=== PATIENT | male | born 1955 | race Caucasian/White ===

== ENCOUNTER → 2016-05-09 | Outpatient (CLI) | payer MEDICAID, MEDICARE | LOC: RAD 09:18 | PROVIDERS: ATTEND Internal Medicine Gastroenterology | DX: R10.31 Right lower quadrant pain (principal); R93.3 Abnormal findings on diagnostic imaging of other parts of digestive tract | CPT/HCPCS: 74280 ==

== ENCOUNTER 2017-04-14 07:05 | Inpatient (IN) | payer MEDICARE, MEDICAID ==
[2017-04-14] MEDS ORDERED: NORMAL SALINE 1000 ML 1,000 ML IV ONE (07:31)
[2017-04-14] MEDS ORDERED: CEFTRIAXONE 1 GM/D5W RTU 1 GM/50 ML RTUPB IV ONE (07:48)
[2017-04-14 08:46] LABS: ALANINE AMINOTRANSFERASE 31 U/L (21-72); ALBUMIN 3.2 g/dL (3.5-5.0); ALKALINE PHOSPHATASE 63 U/L (38-126); ANION GAP 15 (5-19); ASPARTATE AMINO TRANSFERASE 45 U/L (17-59); BILIRUBIN,DIRECT 0.4 mg/dL (0.0-0.4); BILIRUBIN,TOTAL 0.6 mg/dL (0.2-1.3); BLOOD UREA NITROGEN 31 mg/dL (7-20); CALCIUM 8.9 mg/dL (8.4-10.2); CARBON DIOXIDE 19 mmol/L (22-30); CHLORIDE 102 mmol/L (98-107); GLUCOSE 127 mg/dL (75-110); LIPASE 34.8 U/L (23-300); POTASSIUM 3.3 mmol/L (3.6-5.0); SODIUM 135.6 mmol/L (137-145); TOTAL PROTEIN 5.8 g/dL (6.3-8.2)
--- NOTE | 2017-04-14 08:46 | RADIOLOGY REPORT (SQ) ---
EXAM DESCRIPTION: CT HEAD WITHOUT COMPLETED DATE/TIME: 04/14/2017 8:37 am REASON FOR STUDY: confusion, altered COMPARISON: None. TECHNIQUE: Axial images acquired through the brain without intravenous contrast. Images reviewed wi th bone, brain and subdural windows. Images stored on PACS. All CT scanners at this facility use dose modulation, iterative reconstruction, and/or weight based d osing when appropriate to reduce radiation dose to as low as reasonably achievable (ALARA). [facility]: Dose Right [facility]: CareDose [facility]: Dose Right [facility]: Teradose 4D [facility]: Re5ult RADIATION DOSE: CT Rad equipment meets quality standard of care and radiation dose reduction techniq ues were employed. CTDIvol: 64.6 mGy. DLP: 1163 mGy-cm. mGy. LIMITATIONS: None. FINDINGS: VENTRICLES: Normal size and contour. CEREBRUM: No masses. No hemorrhage. No midline shift. No evidence for acute infarction. Normal gra y/white matter differentiation. No areas of low density in the white matter. CEREBELLUM: No masses. No hemorrhage. No alteration of density. No evidence for acute infarction. EXTRAAXIAL SPACES: No fluid collections. No masses. ORBITS AND GLOBE: No intra- or extraconal masses. Normal contour of globe without masses. CALVARIUM: No fracture. PARANASAL SINUSES: No fluid or mucosal thickening. SOFT TISSUES: No mass or hematoma. OTHER: No other significant finding. IMPRESSION: NO ACUTE INTRACRANIAL IMAGING FINDINGS. EVIDENCE OF ACUTE STROKE: NO. COMMENT: Quality ID # [id number]: Final reports with documentation of one or more dose reduction techniques (e.g., Automated exposure control, adjustment of the mA and/or kV according to patient size, use of iterative reconstruction technique) TECHNICAL DOCUMENTATION: JOB ID: [id number] [employer]- All Rights Reserved
[2017-04-14 08:50] LABS: HEMATOCRIT 34.5 % (37.9-51.0); HEMOGLOBIN 11.5 g/dL (13.5-17.0); MEAN CORPUSCULAR HEMOGLOBIN 30.2 pg (27.0-33.4); MEAN CORPUSCULAR HGB CONC 33.2 g/dL (32.0-36.0); MEAN CORPUSCULAR VOLUME 91 fl (80-97); PLATELET COUNT 284 10^3/uL (150-450); RED CELL DISTRIBUTION WIDTH 14.8 % (11.5-14.0)
[2017-04-14 08:52] LABS: ABSOLUTE LYMPHOCYTES# (MANUAL) 0.2 10^3/uL (0.5-4.7); ABSOLUTE MONOCYTES # (MANUAL) 0.5 10^3/uL (0.1-1.4); ABSOLUTE NEUTROPHILS# (MANUAL) 16.3 10^3/uL (1.7-8.2); BAND NEUTROPHILS % (MANUAL) 3 % (3-5); BASOPHILS % (MANUAL) 0 % (0-2); EOSINOPHILS % (MANUAL) 0 % (0-6); LYMPHOCYTES % (MANUAL) 1 % (13-45); MONOCYTES % (MANUAL) 3 % (3-13); SEGMENTED NEUTROPHILS % (MAN) 93 % (42-78); TOTAL CELLS COUNTED 100
[2017-04-14 08:54] LABS: ANISOCYTOSIS SLIGHT; PLATELET COMMENT ADEQUATE; POLYCHROMASIA SLIGHT; TOXIC GRANULATION SLIGHT
[2017-04-14 08:58] LABS: CREATINE KINASE MB 3.22 ng/mL (<4.55); TROPONIN I 0.02 ng/mL
--- NOTE | 2017-04-14 09:47 | ER Document Report ---
ED Fever - General Chief Complaint: Fever Stated Complaint: FEVER Time Seen by Provider: 04/14/17 07:32 Mode of Arrival: Ambulatory Information source: Patient Notes: Patient is a 61-year-old male brought in by EMS from group home who presents to the ER today for confusion this morning and fever. Patient states that he feels confused. Fever was as high as 101F at the group home, they did give him Tylenol on the ambulance. Patient denies any pain anywhere, cough, runny nose, burning with urination or any other symptoms. He complains of his chronic foot pain and back pain. TRAVEL OUTSIDE OF THE [place] IN LAST 30 DAYS: No - Related Data Allergies/Adverse Reactions: Penicillins Allergy (Verified 11/23/15 11:27) Home Medications: Current Home Medications Acetaminophen [Tylenol 325 mg Tablet] 650 mg PO Q4HP PRN 04/14/17 [History] Acetaminophen [Tylenol 325 mg Tablet] 650 mg PO Q8 04/14/17 [History] Atenolol [Tenormin] 50 mg PO DAILY 04/14/17 [History] Benztropine Mesylate 1 mg PO BID 04/14/17 [History] Bismuth Subsalicylate [Bismuth] 15 ml PO Q4HP PRN 04/14/17 [History] Bupropion HCl [Wellbutrin 75 mg Tablet] 75 mg PO DAILY 04/14/17 [History] Calcium Carbonate [Tums Chewable 500 mg Tab.chew] 1,000 mg PO Q1HP PRN 04/14/17 [History] Diazepam [Valium 5 mg Tablet] 5 mg PO Q8HP PRN 04/14/17 [History] Divalproex Sodium [Depakote] 1,000 mg PO QHS 04/14/17 [History] Divalproex Sodium [Depakote] 500 mg PO DAILY 04/14/17 [History] Doxepin HCl [Silenor] 3 mg PO QHS 04/14/17 [History] Ergocalciferol (Vitamin D2) [Drisdol 50,000 unit (1.25MG) Capsule] 50,000 unit PO MO@1000 04/14/17 [History] Lubiprostone [Amitiza] 24 mcg PO BID 04/14/17 [History] Mag Hydrox/Al Hydrox/Simeth [Maalox Plus Susp 30 Udcup] 30 ml PO Q4HP PRN [History] Magnesium Hydroxide [Milk of Magnesia 30 ml Udcup] 30 ml PO BIDP PRN 04/14/17 [ History] Melatonin [Melatin] 3 mg PO QHS 04/14/17 [History] Metformin HCl [Glucophage] 1,000 mg PO BIDBS 04/14/17 [History] Methylcellulose [Fiber] 1,000 mg PO BID 04/14/17 [History] Olanzapine [Olanzapine Odt] 15 mg SL BID 04/14/17 [History] Propylene Glycol/Peg 400/Pf [Systane 0.3-0.4% Eye Drops] 1 drop OU QID 04/14/17 [History] Rosuvastatin Calcium [Crestor 20 mg Tablet] 20 mg PO DAILY 04/14/17 [History] Sennosides [Senna] 8.6 mg PO DAILYP PRN 04/14/17 [History] Tamsulosin HCl [Flomax 0.4 mg Cap.sr] 0.4 mg PO DAILY 04/14/17 [History] Zolpidem Tartrate [Ambien] 10 mg PO QHS 04/14/17 [History] Past Medical History - General Information source: Patient, Outside Facility Records - Social History Smoking Status: Current Every Day Smoker Chew tobacco use (# tins/day): No Frequency of alcohol use: None Drug Abuse: None Family History: Reviewed & Not Pertinent Patient has suicidal ideation: No Patient has homicidal ideation: No - Past Medical History Cardiac Medical History: Reports: Hx Hypercholesterolemia, Hx Hypertension Pulmonary Medical History: Reports: Hx Pneumonia - "Neurocognitive Disorder" Endocrine Medical History: Reports: Hx Diabetes Mellitus Type 2 Renal/ Medical History: Denies: Hx Peritoneal Dialysis Psychiatric Medical History: Reports: Hx Depression Past Surgical History: Reports: Hx Orthopedic Surgery - Left Knee - Immunizations Immunizations up to date: Yes Hx Diphtheria, Pertussis, Tetanus Vaccination: No Review of Systems - Review of Systems Constitutional: See HPI EENT: No symptoms reported Cardiovascular: No symptoms reported Respiratory: No symptoms reported Gastrointestinal: No symptoms reported Genitourinary: No symptoms reported Male Genitourinary: No symptoms reported Musculoskeletal: No symptoms reported Skin: No symptoms reported Hematologic/Lymphatic: No symptoms reported Neurological/Psychological: No symptoms reported Physical Exam - Vital signs Vitals: Temp Pulse Resp BP Pulse Ox 100 F 98 18 118/56 L 95 04/14/17 07:23 04/14/17 07:23 04/14/17 07:23 04/14/17 07:23 04/14/17 07:23 - Notes Notes: PHYSICAL EXAMINATION: GENERAL: Chronically ill-appearing, unkempt, smells of urine, but in no acute distress. HEAD: Atraumatic, normocephalic. EYES: Pupils equal round and reactive to light, extraocular movements intact, sclera anicteric, conjunctiva are normal. ENT: ear canals without erythema or foreign body, TMs pearly bagley with good bony landmarks, nares patent, oropharynx clear without exudates. Moist mucous membranes. NECK: Normal range of motion, supple without lymphadenopathy LUNGS: CTAB and equal. No wheezes rales or rhonchi. HEART: Regular rate and rhythm without murmurs ABDOMEN: Soft, mild suprapubic tenderness. No guarding, no rebound BACK: no vertebral tenderness, normal ROM GI/: no CVA tenderness EXTREMITIES: Normal range of motion, no pitting edema. No cyanosis. NEUROLOGICAL: slow, but Follows commands appropriately, alert and oriented 3, cranial nerves grossly intact. Normal sensory/motor exams. Good and equal strength bilaterally, Kernig and Brudzinski's signs negative, Romberg's test normal, normal heel to todd testing PSYCH: Normal mood, normal affect. SKIN: Warm, Dry, normal turgor, erythema noted to the entirety of the left lower extremity excluding the foot, tender to palpation, edematous, some erythema to the medial left thigh that appears to possibly be streaking from the lower extremity erythema, groin with fungal rash with satellite lesions Course - Re-evaluation Re-evalutation: 04/14/17 19:03 pt has left lower extremity cellulitis. Patient started on vancomycin and Rocephin, given IV fluids. Patient has a white count of 17,000 with a left shift. Patient admitted to Dr. Hernandez at this time. Patient did develop a fever while here again and was given Tylenol which resolved the fever. Urinalysis without signs of infection. Dr. Diggs did evaluate the patient with myself. 04/14/17 19:05 - Vital Signs Vital signs: Temp Pulse Resp BP Pulse Ox 100.4 F 92 24 H 114/48 L 97 04/14/17 15:01 04/14/17 16:46 04/14/17 16:22 04/14/17 16:22 04/14/17 16:22 - Laboratory Result Diagrams: 04/14/17 08:10 04/14/17 08:10 Laboratory results interpreted by me: 04/14/17 04/14/17 04/14/17 08:10 08:10 09:24 WBC 17.0 H RBC 3.80 L Hgb 11.5 L Hct 34.5 L RDW 14.8 H Seg Neuts % (Manual) 93 H Lymphocytes % (Manual) 1 L Abs Neuts (Manual) 16.3 H Abs Lymphs (Manual) 0.2 L Sodium 135.6 L Potassium 3.3 L Carbon Dioxide 19 L BUN 31 H Glucose 127 H Total Protein 5.8 L Albumin 3.2 L Urine Protein 30 H Urine Ketones 20 H Urine Urobilinogen 4.0 H Discharge - Discharge Clinical Impression: Cellulitis of left leg without foot Condition: Stable Disposition: ADMITTED INPATIENT Admitting Provider: Mary Unit Admitted: Telemetry
[2017-04-14 10:24] LABS: APPEARANCE,URINE SLIGHTLY-CLOUDY; BILIRUBIN,URINE NEGATIVE (NEGATIVE); GLUCOSE, URINE NEGATIVE (NEGATIVE); KETONES,URINE 20 mg/dL (NEGATIVE); LEUKOCYTE ESTERASE,URINE NEGATIVE (NEGATIVE); NITRITE,URINE NEGATIVE (NEGATIVE); PROTEIN,URINE 30 mg/dL (NEGATIVE)
[2017-04-14 10:26] LABS: COLOR,URINE DARK YELLOW
[2017-04-14 10:36] LABS: URINE AMPHETAMINES SCREEN NEGATIVE; URINE BARBITURATES SCREEN NEGATIVE; URINE BENZODIAZEPINES SCREEN UNCONFIRMED POSITIVE; URINE COCAINE SCREEN NEGATIVE; URINE MARIJUANA (THC) SCREEN NEGATIVE; URINE METHADONE SCREEN NEGATIVE; URINE PHENCYCLIDINE SCREEN NEGATIVE
[2017-04-14 12:14] LABS: A TYPE INFLUENZA AG NEGATIVE (NEGATIVE); B INFLUENZA AG NEGATIVE (NEGATIVE)
--- NOTE | 2017-04-14 12:34 | RADIOLOGY REPORT (SQ) ---
EXAM DESCRIPTION: CHEST SINGLE VIEW COMPLETED DATE/TIME: 04/14/2017 12:17 pm REASON FOR STUDY: confused, fever COMPARISON: 02/22/2016 EXAM PARAMETERS: NUMBER OF VIEWS: One view. TECHNIQUE: Single frontal radiographic view of the chest acquired. RADIATION DOSE: NA LIMITATIONS: None. FINDINGS: LUNGS AND PLEURA: No opacities, masses or pneumothorax. No pleural effusion. MEDIASTINUM AND HILAR STRUCTURES: No masses. Contour normal. HEART AND VASCULAR STRUCTURES: Heart stable in size. Normal vasculature. BONES: No acute findings. HARDWARE: None in the chest. OTHER: No other significant finding. IMPRESSION: NO ACUTE RADIOGRAPHIC FINDING IN THE CHEST. NO SIGNIFICANT CHANGE FROM PRIOR STUDY. TECHNICAL DOCUMENTATION: JOB ID: [id number] [employer]- All Rights Reserved
[2017-04-14] MEDS ORDERED: VANCOMYCIN HCL INJ 1000 MG VIAL IV ONE (13:10)
--- NOTE | 2017-04-14 14:20 | RADIOLOGY REPORT (SQ) ---
EXAM DESCRIPTION: TIBIA FIBULA LEFT COMPLETED DATE/TIME: 04/14/2017 1:56 pm REASON FOR STUDY: cellulitis left leg, pain COMPARISON: None. NUMBER OF VIEWS: Two views. TECHNIQUE: Two radiographic images acquired of the left tibia and fibula to include the knee and ank le in at least one projection. LIMITATIONS: None. FINDINGS: MINERALIZATION: Normal. BONES: No acute fracture or dislocation. No worrisome bone lesions. SOFT TISSUES: No obvious swelling or foreign body. OTHER: No other significant finding. IMPRESSION: NO RADIOGRAPHIC EVIDENCE OF ACUTE INJURY. TECHNICAL DOCUMENTATION: JOB ID: [id number] [employer]- All Rights Reserved
--- NOTE | 2017-04-14 14:21 | RADIOLOGY REPORT (SQ) ---
EXAM DESCRIPTION: FOOT LEFT COMPLETE COMPLETED DATE/TIME: 04/14/2017 1:56 pm REASON FOR STUDY: cellulitis, left ankle tenderness COMPARISON: None. NUMBER OF VIEWS: Three views. TECHNIQUE: AP, lateral and oblique radiographic images acquired of the left foot. LIMITATIONS: None. FINDINGS: MINERALIZATION: Normal. BONES: No acute fracture or dislocation. No worrisome bone lesions. JOINTS: No effusions. SOFT TISSUES: No soft tissue swelling. No foreign body. OTHER: No other significant finding. IMPRESSION: NEGATIVE STUDY OF THE LEFT FOOT. NO RADIOGRAPHIC EVIDENCE OF ACUTE INJURY. TECHNICAL DOCUMENTATION: JOB ID: [id number] [employer]- All Rights Reserved
[2017-04-14] MEDS ORDERED: ACETAMINOPHEN 325 MG TABLET ONE (15:28)
[2017-04-14] MEDS ORDERED: ACETAMINOPHEN 325 MG TABLET PO ONE (15:42)
[2017-04-14] MEDS ORDERED: VANCOMYCIN HCL 0 MG in DEXTROSE 5%-WATER 250 ML IV NR (16:00)
[2017-04-14] MEDS ORDERED: ENOXAPARIN SODIUM INJ 40 MG/0.4 ML DISP.SYRIN SUBCUT ONE (16:30)
[2017-04-14] MEDS: NORMAL SALINE 1000 ML 1,000 ML IV PRN (16:38)
[2017-04-14 17:36] LABS: INTERNATIONAL RATION (INR) 1.06; PROTHROMBIN TIME 14.5 SEC (11.4-15.4)
[2017-04-14 17:37] LABS: PARTIAL THROMBOPLASTIN TIME 45.9 SEC (23.5-35.8)
[2017-04-14] MEDS: ACETAMINOPHEN 325 MG TABLET PO PRN (18:10)
[2017-04-14] MEDS ORDERED: GLUCAGON,HUMAN RECOMB 1 MG INJ IM PRN (18:54)
[2017-04-14] MEDS ORDERED: DEXTROSE 50%-WATER 25 GM/50 ML DISP.SYRIN IV PRN ×2 (18:54)
[2017-04-14] MEDS ORDERED: INSULIN LISPRO 100 UNIT/ML 3 ML VIAL SUBCUT PRN (18:54)
[2017-04-14] MEDS ORDERED: DEXTROSE 40% GEL 15 GM TUBE PO PRN ×2 (18:54)
--- NOTE | 2017-04-14 18:54 | PDOC H&P ---
History of Present Illness Admission Date/PCP: 04/14/17 14:28 LISA QUAN MD Patient complains of: Fever History of Present Illness: KATHLEEN HARRISON is a 61 year old male of Dr Quan and resident at [facility] who was brought to the ED by EMS with 3-4 days of fever. Facility staff reported onset of associated confusion this morning and reported oral temperature of 101F. He denied any coughing, nasal or sinus congestion, chest pain, dysuria, flank pain, hematuria, nausea, vomiting, or abdominal pain. His initial evaluation in the ED was remarkable for left leg cellulitis and associated leukocytosis with left shift. he was subsequently advised hospitalization for further evaluation and management. His morbidities include Hypertesion, Hyperlipidemia, Diabetes Mellitus Type 2, and Depression. Past Medical History Cardiac Medical History: Reports: Hyperlipidema, Hypertension Pulmonary Medical History: Reports: Pneumonia - "Neurocognitive Disorder" Endocrine Medical History: Reports: Diabetes Mellitus Type 2 Psychiatric Medical History: Reports: Depression Past Surgical History Past Surgical History: Reports: Orthopedic Surgery - Left Knee Social History Smoking Status: Current Every Day Smoker Cigarettes Packs Per Day: 1 Frequency of Alcohol Use: None Hx Recreational Drug Use: No Drugs: None Hx Prescription Drug Abuse: No Family History Family History: Reviewed & Not Pertinent Parental Family History Reviewed: Yes Children Family History Reviewed: Yes Sibling(s) Family History Reviewed.: Yes Medication/Allergy Home Medications: Acetaminophen [Tylenol 325 mg Tablet] 650 mg PO Q4HP PRN 04/14/17 Acetaminophen [Tylenol 325 mg Tablet] 650 mg PO Q8 04/14/17 Atenolol [Tenormin] 50 mg PO DAILY 04/14/17 Benztropine Mesylate 1 mg PO BID 04/14/17 Bismuth Subsalicylate [Bismuth] 15 ml PO Q4HP PRN 04/14/17 Bupropion HCl [Wellbutrin 75 mg Tablet] 75 mg PO DAILY 04/14/17 Calcium Carbonate [Tums Chewable 500 mg Tab.chew] 1,000 mg PO Q1HP PRN 04/14/17 Diazepam [Valium 5 mg Tablet] 5 mg PO Q8HP PRN 04/14/17 Divalproex Sodium [Depakote] 1,000 mg PO QHS 04/14/17 Divalproex Sodium [Depakote] 500 mg PO DAILY 04/14/17 Doxepin HCl [Silenor] 3 mg PO QHS 04/14/17 Ergocalciferol (Vitamin D2) [Drisdol 50,000 unit (1.25MG) Capsule] 50,000 unit PO MO@1000 04/14/17 Lubiprostone [Amitiza] 24 mcg PO BID 04/14/17 Mag Hydrox/Al Hydrox/Simeth [Maalox Plus Susp 30 Udcup] 30 ml PO Q4HP PRN Magnesium Hydroxide [Milk of Magnesia 30 ml Udcup] 30 ml PO BIDP PRN 04/14/17 Melatonin [Melatin] 3 mg PO QHS 04/14/17 Metformin HCl [Glucophage] 1,000 mg PO BIDBS 04/14/17 Methylcellulose [Fiber] 1,000 mg PO BID 04/14/17 Olanzapine [Olanzapine Odt] 15 mg SL BID 04/14/17 Propylene Glycol/Peg 400/Pf [Systane 0.3-0.4% Eye Drops] 1 drop OU QID 04/14/17 Rosuvastatin Calcium [Crestor 20 mg Tablet] 20 mg PO DAILY 04/14/17 Sennosides [Senna] 8.6 mg PO DAILYP PRN 04/14/17 Tamsulosin HCl [Flomax 0.4 mg Cap.sr] 0.4 mg PO DAILY 04/14/17 Zolpidem Tartrate [Ambien] 10 mg PO QHS 04/14/17 Allergies/Adverse Reactions: Penicillins Allergy (Verified 11/23/15 11:27) Review of Systems All systems: reviewed and no additional remarkable complaints except as stated Physical Exam Vital Signs: Temp Pulse Resp BP Pulse Ox 100.4 F 92 24 H 114/48 L 97 04/14/17 15:01 04/14/17 16:46 04/14/17 16:22 04/14/17 16:22 04/14/17 16:22 Intake & Output 04/13/17 04/14/17 04/15/17 06:59 06:59 06:59 Intake Total 400 Balance 400 General appearance: PRESENT: no acute distress, well-developed, well-nourished Head exam: PRESENT: atraumatic, normocephalic Eye exam: PRESENT: conjunctiva pink, EOMI, PERRLA. ABSENT: scleral icterus Mouth exam: PRESENT: moist Teeth exam: PRESENT: dental caries Throat exam: ABSENT: post pharyngeal erythema, tonsillar erythema, tonsillar exudate, tonsillogmegaly, other Neck exam: PRESENT: full ROM. ABSENT: carotid bruit, JVD, lymphadenopathy, thyromegaly Respiratory exam: PRESENT: clear to auscultation young. ABSENT: crackles, prolonged expiratory phas, rhonchi, wheezes Cardiovascular exam: PRESENT: RRR. ABSENT: diastolic murmur, rubs, systolic murmur Vascular exam: PRESENT: normal capillary refill. ABSENT: pallor GI/Abdominal exam: PRESENT: normal bowel sounds, soft. ABSENT: distended, guarding, mass, organolmegaly, rebound, tenderness Rectal exam: PRESENT: deferred Extremities exam: PRESENT: pedal edema - mostly involving the left leg Musculoskeletal exam: PRESENT: tenderness - expressed tenderness to palpation of the left leg Neurological exam: PRESENT: alert, awake, oriented to person, oriented to place , oriented to time, oriented to situation, CN II-XII grossly intact. ABSENT: motor sensory deficit Psychiatric exam: PRESENT: appropriate affect, normal mood. ABSENT: homicidal ideation, suicidal ideation Skin exam: PRESENT: dry, erythema - involving left leg, rash, warm Results Laboratory Results: I reviewed his lab results on [facility] and form significant portion of my medical decision making in this case. Impressions: Head CT 04/14/17 07:24 IMPRESSION: NO ACUTE INTRACRANIAL IMAGING FINDINGS. EVIDENCE OF ACUTE STROKE: NO. Chest X-Ray 04/14/17 11:11 IMPRESSION: NO ACUTE RADIOGRAPHIC FINDING IN THE CHEST. NO SIGNIFICANT CHANGE FROM PRIOR STUDY. Tibia/Fibula X-Ray 04/14/17 13:12 IMPRESSION: NO RADIOGRAPHIC EVIDENCE OF ACUTE INJURY. Foot X-Ray 04/14/17 13:17 IMPRESSION: NEGATIVE STUDY OF THE LEFT FOOT. NO RADIOGRAPHIC EVIDENCE OF ACUTE INJURY. Assessment & Plan - Diagnosis (1) Cellulitis of left leg without foot Is this a current diagnosis for this admission?: Yes Plan: See covering attending physician orders. (2) Type 2 diabetes mellitus Qualifiers: Diabetes mellitus complication status: without complication Diabetes mellitus jail insulin use: without buttermaker use Qualified Code(s): E11.9 - Type 2 diabetes mellitus without complications Is this a current diagnosis for this admission?: Yes Plan: See covering attending physician orders. (3) HTN (hypertension) Qualifiers: Hypertension type: essential hypertension Qualified Code(s): I10 - Essential (primary) hypertension Is this a current diagnosis for this admission?: Yes Plan: See covering attending physician orders. (4) HLD (hyperlipidemia) Qualifiers: Hyperlipidemia type: pure hypercholesterolemia Qualified Code(s): E78.00 - Pure hypercholesterolemia, unspecified; E78.0 - Pure hypercholesterolemia Is this a current diagnosis for this admission?: Yes Plan: See covering attending physician orders. (5) Bipolar 1 disorder Is this a current diagnosis for this admission?: Yes Plan: See covering attending physician orders. - Time Time Spent: 50 to 70 Minutes Medications reviewed and adjusted accordingly: Yes Anticipated discharge: Other - INTERMEDIATE Within: Other - Inpatient Certification Based on my medical assessment, after consideration of the patient's comorbidities, presenting symptoms, or acuity I expect that the services needed warrant INPATIENT care.: Yes I certify that my determination is in accordance with my understanding of Medicare's requirements for reasonable and necessary INPATIENT services [42 CFR 412.3e].: Yes Medical Necessity: Need Close Monitoring Due to Risk of Patient Decompensation, Need For IV Fluids, Need For Continuous Telemetry Monitoring, Need for IV Antibiotics, Risk of Complication if Not Cared For in Hospital Post Hospital Care: D/C or Transfer Summary - Plan Summary Plan Summary: See covering attending physician orders.
[2017-04-14] MEDS ORDERED: (PENDING PHARMACY ID) (Sennosides [Senna] 8.6 MG) PO PRN (18:55)
[2017-04-14] MEDS ORDERED: MAG HYDROX/AL HYDROX/SIMETH SUSP 30 ML UDCUP PO PRN (18:55)
[2017-04-14] MEDS ORDERED: ACETAMINOPHEN 325 MG TABLET PO PRN (18:55)
[2017-04-14] MEDS: ONDANSETRON HCL INJ/PF 4 MG/2 ML SDV IV PRN (20:16)
[2017-04-14] MEDS ORDERED: PEG OU SCH (22:00)
[2017-04-14] MEDS ORDERED: PROPYLENE GLYCOL OU SCH (22:00)
[2017-04-14] MEDS ORDERED: (PENDING PHARMACY ID) (Doxepin Hcl [Silenor] 3 MG) PO SCH (22:00)
[2017-04-14] MEDS ORDERED: (PENDING PHARMACY ID) (Melatonin [Melatin] 3 MG) PO SCH (22:00)
[2017-04-14] MEDS ORDERED: OLANZAPINE 5 MG TABLET ONE (23:05)
[2017-04-14] MEDS: OLANZAPINE 5 MG TAB.RAPDIS SL SCH (23:11)
[2017-04-14] MEDS: DIVALPROEX SODIUM 500 MG TAB.SR.24H PO SCH (23:17)
[2017-04-14] MEDS: ATORVASTATIN CALCIUM 40 MG TABLET PO SCH (23:18)
[2017-04-15] MEDS: NORMAL SALINE 1000 ML 1,000 ML IV PRN ×2 (00:21→21:44)
[2017-04-15] MEDS: ONDANSETRON HCL INJ/PF 4 MG/2 ML SDV IV PRN ×3 (00:22→12:00)
--- NOTE | 2017-04-15 04:07 | RADIOLOGY REPORT (SQ) ---
EXAM DESCRIPTION: KUB/ABDOMEN (SINGLE VIEW) CLINICAL HISTORY: 61 years, Male, Vomiting COMPARISON: None. LIMITATIONS: None. FINDINGS: Moderate to severe nonspecific gaseous gastric distention. Moderate colonic stool retention. Partially imaged right femoral hardware. IMPRESSION: Nonspecific gastric distention. 2011 [employer]- All Rights Reserved
[2017-04-15] MEDS ORDERED: BISACODYL 10 MG SUPP.RECT PR ONE (05:00)
[2017-04-15] MEDS ORDERED: VANCOMYCIN HCL INJ 1000 MG VIAL ONE (05:10)
[2017-04-15] MEDS ORDERED: VANCOMYCIN HCL 2,000 MG in NORMAL SALINE 500 ML IV ONE (06:00)
[2017-04-15] MEDS ORDERED: VANCOMYCIN HCL 2,000 MG in DEXTROSE 5%-WATER 500 ML IV SCH ×2 (06:00→18:00)
[2017-04-15 06:09] LABS: HEMATOCRIT 31.4 % (37.9-51.0); HEMOGLOBIN 10.8 g/dL (13.5-17.0); MEAN CORPUSCULAR HEMOGLOBIN 30.5 pg (27.0-33.4); MEAN CORPUSCULAR HGB CONC 34.2 g/dL (32.0-36.0); MEAN CORPUSCULAR VOLUME 89 fl (80-97); PLATELET COUNT 239 10^3/uL (150-450); RED BLOOD COUNT 3.53 10^6/uL (4.35-5.55); RED CELL DISTRIBUTION WIDTH 14.9 % (11.5-14.0); WHITE BLOOD COUNT 18.8 10^3/uL (4.0-10.5)
[2017-04-15] MEDS: LANSOPRAZOLE 30 MG TAB.RAP.DR PO SCH (06:19)
[2017-04-15 06:32] LABS: ALANINE AMINOTRANSFERASE 31 U/L (21-72); ALBUMIN 2.8 g/dL (3.5-5.0); ALKALINE PHOSPHATASE 57 U/L (38-126); ANION GAP 10 (5-19); ASPARTATE AMINO TRANSFERASE 43 U/L (17-59); BILIRUBIN,DIRECT 0.4 mg/dL (0.0-0.4); BILIRUBIN,TOTAL 0.5 mg/dL (0.2-1.3); BLOOD UREA NITROGEN 21 mg/dL (7-20); CALCIUM 8.5 mg/dL (8.4-10.2); CARBON DIOXIDE 25 mmol/L (22-30); CHLORIDE 103 mmol/L (98-107); GLUCOSE 135 mg/dL (75-110); TOTAL PROTEIN 5.2 g/dL (6.3-8.2)
[2017-04-15 06:39] LABS: ABSOLUTE MONOCYTES # (MANUAL) 0.6 10^3/uL (0.1-1.4); ABSOLUTE NEUTROPHILS# (MANUAL) 18.2 10^3/uL (1.7-8.2); BASOPHILS % (MANUAL) 0 % (0-2); EOSINOPHILS % (MANUAL) 0 % (0-6); LYMPHOCYTES % (MANUAL) 0 % (13-45); MONOCYTES % (MANUAL) 3 % (3-13); SEGMENTED NEUTROPHILS % (MAN) 81 % (42-78); TOTAL CELLS COUNTED 100
[2017-04-15 06:43] LABS: ANISOCYTOSIS SLIGHT; PLATELET COMMENT ADEQUATE; TOXIC GRANULATION SLIGHT
[2017-04-15 06:45] LABS: BAND NEUTROPHILS % (MANUAL) 16 % (3-5)
[2017-04-15] MEDS: CEFTRIAXONE 1 GM/D5W RTU 1 GM/50 ML RTUPB IV SCH (09:21)
[2017-04-15] MEDS: BENZTROPINE MESYLATE 1 MG TABLET PO SCH ×2 (09:24→17:06)
[2017-04-15] MEDS: METFORMIN HCL 500 MG TABLET PO SCH ×2 (09:24→17:06)
[2017-04-15] MEDS: BUPROPION HCL 75 MG TABLET PO SCH (09:24)
[2017-04-15] MEDS: DIVALPROEX SODIUM 500 MG TAB.SR.24H PO SCH ×2 (09:26→21:39)
[2017-04-15] MEDS: ENOXAPARIN SODIUM INJ 40 MG/0.4 ML DISP.SYRIN SUBCUT SCH (09:26)
[2017-04-15] MEDS: LUBIPROSTONE 24 MCG CAPSULE PO SCH ×2 (09:27→17:04)
[2017-04-15] MEDS: TAMSULOSIN HCL 0.4 MG CAP.SR.24H PO SCH (09:28)
[2017-04-15] MEDS: OLANZAPINE 5 MG TAB.RAPDIS SL SCH ×2 (09:28→21:39)
[2017-04-15] MEDS: POLYVINYL ALCOHOL 1.4% OPH SOLN 15 ML OU SCH ×4 (09:29→21:39)
[2017-04-15] MEDS: ACETAMINOPHEN 325 MG TABLET PO PRN ×3 (09:29→22:30)
[2017-04-15] MEDS: PSYLLIUM SEED-SF 5.85 GM PACKET PO SCH ×2 (09:29→17:06)
[2017-04-15] MEDS: ATENOLOL 50 MG TABLET PO SCH (09:30)
[2017-04-15 09:37] LABS: PATH REVIEW PATHOLOGIST REVIEWED
--- NOTE | 2017-04-15 09:39 | EKG REPORT ---
SEVERITY:- BORDERLINE ECG - SINUS RHYTHM PROBABLE LEFT ATRIAL ABNORMALITY BORDERLINE T WAVE ABNORMALITIES : Confirmed by: Winnie Burnette 15-Apr-2017 09:39:31
[2017-04-15] MEDS ORDERED: METHYLCELLULOSE 1000 MG PO SCH (10:00)
--- NOTE | 2017-04-15 11:25 | PDOC PROGRESS REPORT ---
Subjective Progress Note for:: 04/15/17 Subjective:: Patient continue to experience intermittent fever. No bowel movement since last evaluation. KUB suggested moderate fecal burden. No chest pain or difficulty with breathing. There has been nausea and vomiting but currently under control with IV Zofran administration. Reason For Visit: CELLULITIS OF LEFT LOWER EXTREMITY Physical Exam Vital Signs: Temp Pulse Resp BP Pulse Ox 100.3 F 91 16 125/70 95 04/15/17 04:00 04/15/17 07:00 04/15/17 04:00 04/15/17 04:00 04/15/17 04:00 Intake & Output 04/14/17 04/15/17 04/16/17 06:59 06:59 06:59 Intake Total 2080 Output Total 600 Balance 1480 General appearance: PRESENT: no acute distress, obese Head exam: PRESENT: atraumatic, normocephalic Eye exam: PRESENT: conjunctiva pink, EOMI, PERRLA. ABSENT: scleral icterus Mouth exam: PRESENT: moist Respiratory exam: PRESENT: clear to auscultation young Cardiovascular exam: PRESENT: RRR. ABSENT: diastolic murmur, rubs, systolic murmur Vascular exam: PRESENT: normal capillary refill. ABSENT: pallor GI/Abdominal exam: PRESENT: normal bowel sounds, soft. ABSENT: distended, guarding, mass, organolmegaly, rebound, tenderness Extremities exam: PRESENT: pedal edema - left leg region with cellulitis Musculoskeletal exam: PRESENT: tenderness - minimally to palpation over left leg region with cellulitis Neurological exam: PRESENT: alert, awake, oriented to person, oriented to place , oriented to time, oriented to situation, CN II-XII grossly intact. ABSENT: motor sensory deficit Psychiatric exam: PRESENT: appropriate affect, normal mood. ABSENT: homicidal ideation, suicidal ideation Skin exam: PRESENT: dry, erythema - left leg region with cellulitis, warm Results Laboratory Results: 04/15/17 05:17 04/15/17 05:17 04/15/17 04/15/17 05:17 05:17 WBC 18.8 H RBC 3.53 L Hgb 10.8 L Hct 31.4 L MCV 89 MCH 30.5 MCHC 34.2 RDW 14.9 H Plt Count 239 Seg Neutrophils % Not Reportable Lymphocytes % Not Reportable Monocytes % Not Reportable Eosinophils % Not Reportable Basophils % Not Reportable Absolute Neutrophils Not Reportable Absolute Lymphocytes Not Reportable Absolute Monocytes Not Reportable Absolute Eosinophils Not Reportable Absolute Basophils Not Reportable Sodium 138.0 Potassium 3.0 L* Chloride 103 Carbon Dioxide 25 Anion Gap 10 BUN 21 H Creatinine 0.62 Est GFR ( Amer) > 60 Est GFR (Non-Af Amer) > 60 Glucose 135 H Calcium 8.5 Total Bilirubin 0.5 AST 43 ALT 31 Alkaline Phosphatase 57 Total Protein 5.2 L Albumin 2.8 L Impressions: Head CT 04/14/17 07:24 IMPRESSION: NO ACUTE INTRACRANIAL IMAGING FINDINGS. EVIDENCE OF ACUTE STROKE: NO. Chest X-Ray 04/14/17 11:11 IMPRESSION: NO ACUTE RADIOGRAPHIC FINDING IN THE CHEST. NO SIGNIFICANT CHANGE FROM PRIOR STUDY. Tibia/Fibula X-Ray 04/14/17 13:12 IMPRESSION: NO RADIOGRAPHIC EVIDENCE OF ACUTE INJURY. Foot X-Ray 04/14/17 13:17 IMPRESSION: NEGATIVE STUDY OF THE LEFT FOOT. NO RADIOGRAPHIC EVIDENCE OF ACUTE INJURY. KUB X-Ray 04/15/17 00:00 IMPRESSION: Nonspecific gastric distention. 2010 [employer]- All Rights Reserved Assessment & Plan - Diagnosis (1) Cellulitis of left leg without foot Is this a current diagnosis for this admission?: Yes (2) Type 2 diabetes mellitus Qualifiers: Diabetes mellitus complication status: without complication Diabetes mellitus intermediate card tender insulin use: without intermediate card tender use Qualified Code(s): E11.9 - Type 2 diabetes mellitus without complications Is this a current diagnosis for this admission?: Yes (3) HTN (hypertension) Qualifiers: Hypertension type: essential hypertension Qualified Code(s): I10 - Essential (primary) hypertension Is this a current diagnosis for this admission?: Yes (4) HLD (hyperlipidemia) Qualifiers: Hyperlipidemia type: pure hypercholesterolemia Qualified Code(s): E78.00 - Pure hypercholesterolemia, unspecified; E78.0 - Pure hypercholesterolemia Is this a current diagnosis for this admission?: Yes (5) Bipolar 1 disorder Is this a current diagnosis for this admission?: Yes - Time Time Spent with patient: 25-34 minutes Medications reviewed and adjusted accordingly: Yes Anticipated discharge: Other - [facility] Within: Other - Inpatient Certification Based on my medical assessment, after consideration of the patient's comorbidities, presenting symptoms, or acuity I expect that the services needed warrant INPATIENT care.: Yes I certify that my determination is in accordance with my understanding of Medicare's requirements for reasonable and necessary INPATIENT services [42 CFR 412.3e].: Yes Medical Necessity: Need Close Monitoring Due to Risk of Patient Decompensation, Need For IV Fluids, Need For Continuous Telemetry Monitoring, Need for IV Antibiotics, Risk of Complication if Not Cared For in Hospital Post Hospital Care: D/C [employer] Documentation - Plan Summary Plan Summary: See covering attending physician orders.
[2017-04-15] MEDS: METRONIDAZOLE 500 MG/NS RTU 100 ML IV SCH ×2 (12:00→18:54)
[2017-04-15] MEDS: POTASSI CL 20 MEQ/50 ML RIDER 20 MEQ/50 ML RTUPB IV SCH ×3 (12:40→17:07)
[2017-04-15] MEDS: VANCOMYCIN HCL 2,000 MG in DEXTROSE 5%-WATER 500 ML IV SCH (21:39)
[2017-04-15] MEDS: ATORVASTATIN CALCIUM 40 MG TABLET PO SCH (21:39)
[2017-04-16] MEDS: METRONIDAZOLE 500 MG/NS RTU 100 ML IV SCH ×3 (00:52→13:26)
[2017-04-16] MEDS ORDERED: ATENOLOL 50 MG TABLET PO ONE (03:45)
[2017-04-16] MEDS ORDERED: DILTIAZEM HCL/D5W 125 MG/125 ML RTUINJ IV PRN (05:17)
[2017-04-16] MEDS: LANSOPRAZOLE 30 MG TAB.RAP.DR PO SCH (05:20)
[2017-04-16] MEDS: OLANZAPINE 5 MG TAB.RAPDIS SL SCH ×2 (09:44→22:44)
[2017-04-16] MEDS: METFORMIN HCL 500 MG TABLET PO SCH ×2 (09:45→17:56)
[2017-04-16] MEDS: BENZTROPINE MESYLATE 1 MG TABLET PO SCH ×2 (09:45→17:55)
[2017-04-16] MEDS: DIVALPROEX SODIUM 500 MG TAB.SR.24H PO SCH ×2 (09:45→22:43)
[2017-04-16] MEDS: TAMSULOSIN HCL 0.4 MG CAP.SR.24H PO SCH (09:45)
[2017-04-16] MEDS: ATENOLOL 50 MG TABLET PO SCH (09:46)
[2017-04-16] MEDS: ENOXAPARIN SODIUM INJ 40 MG/0.4 ML DISP.SYRIN SUBCUT SCH (09:46)
[2017-04-16] MEDS: POLYVINYL ALCOHOL 1.4% OPH SOLN 15 ML OU SCH ×3 (09:46→17:55)
[2017-04-16] MEDS: BUPROPION HCL 75 MG TABLET PO SCH (09:46)
[2017-04-16] MEDS: LUBIPROSTONE 24 MCG CAPSULE PO SCH ×2 (09:46→17:55)
[2017-04-16] MEDS: ACETAMINOPHEN 325 MG TABLET PO PRN (09:47)
[2017-04-16] MEDS: PSYLLIUM SEED-SF 5.85 GM PACKET PO SCH ×2 (09:47→17:55)
[2017-04-16] MEDS ORDERED: CEFTRIAXONE 1 GM/D5W RTU 1 GM/50 ML RTUPB IV ONE (10:00)
[2017-04-16] MEDS: CEFTRIAXONE 1 GM/D5W RTU 1 GM/50 ML RTUPB IV SCH (10:05)
[2017-04-16] MEDS: VANCOMYCIN HCL 2,000 MG in DEXTROSE 5%-WATER 500 ML IV SCH ×2 (10:30→17:54)
--- NOTE | 2017-04-16 10:35 | EKG REPORT ---
SEVERITY:- ABNORMAL ECG - ATRIAL FIBRILLATION, V-RATE 95-150 NONSPECIFIC T ABNORMALITIES, LATERAL LEADS : Confirmed by: Winnie Burnette 16-Apr-2017 10:34:57
[2017-04-16 11:47] LABS: VANCOMYCIN,TROUGH 6.6 ug/mL (5.0-20.0)
[2017-04-16] MEDS ORDERED: METOPROLOL SUCCINATE 50 MG TAB.SR.24H PO ONE (14:30)
[2017-04-16 15:25] LABS: FREE T4 (FREE THYROXINE) 1.58 ng/dL (0.78-2.19)
--- NOTE | 2017-04-16 15:29 | XCELERA REPORT ---
[address] [address] Transthoracic Echocardiogram Report Name: KATHLEEN HARRISON Age: 61 yrs Gender: Male : 1955 Patient Status: Inpatient Patient Location: [address] [place] [address] Study Date: 04/16/2017 02:36 PM Height: 75 in Weight: 263 lb BSA: 2.5 m2 Procedure: A complete two-dimensional transthoracic echocardiogram was performed (2D, M-mode, spectral and color flow Doppler). The study was technically difficult with many images being suboptimal in quality. The study was technically limited with all images being suboptimal in quality. Reason For Study: NEW ONSET A-FIB Ordering Physician: LISA QUAN Performed By: Alejandrina Ritter Interpretation Summary Due to the poor quality of the echocardiogram, an assessment of left ventricular ejection fraction cannot be made. Best estimate is LVEF wellpreserved. The study was technically difficult with many images being suboptimal in quality. The study was technically limited with all images being suboptimal in quality. Consider additional methods to assess LVEF such as MUGA scan, CTA heart, cardiac MRI, KALEE, etc. if clinically indicated. The left ventricle is grossly normal size. There is no pericardial effusion. MMode/2D Measurements & Calculations RVDd: 2.2 cm LVIDd: 5.3 cm FS: 36.2 % Ao root diam: 3.2 cm IVSd: 0.82 cm LVIDs: 3.4 cm EDV(Teich): 137.5 ml LVPWd: 1.4 cm ESV(Teich): 47.5 ml Ao root area: 8.2 cm2 EF(Teich): 65.4 % LA dimension: 4.9 cm Doppler Measurements & Calculations MV E max catalina: MV P1/2t max catalina: Ao V2 max: LV V1 max P.8 cm/sec 143.1 cm/sec 123.3 cm/sec 3.4 mmHg MV P1/2t: 78.4 msec Ao max PG: LV V1 max: 6.1 mmHg 92.5 cm/sec MVA(P1/2t): 2.8 cm2 MV dec slope: 535.0 cm/sec2 Left Ventricle The left ventricle is grossly normal size. Due to the poor quality of the echocardiogram, an assessment of left ventricular ejection fraction cannot be made. Best estimate is LVEF wellpreserved. Consider additional methods to assess LVEF such as MUGA scan, CTA heart, cardiac MRI, KALEE, etc. if clinically indicated. Right Ventricle The right ventricle is not well visualized secondary to technical limitations. Atria Right atrium not well visualized secondary to technical limitations. The left atrium is moderately dilated. Interarterial septum not well visualized and not well dopplered. Cannot comment on ASD/PFO presence. Mitral Valve The mitral valve is not well visualized. There is no mitral valve stenosis. There is no mitral regurgitation noted. Aortic Valve The aortic valve is not well visualized secondary to technical limitations. There is no aortic valve stenosis. No aortic regurgitation is present. Tricuspid Valve The tricuspid valve is not well visualized secondary to technical limitations. There is no tricuspid stenosis. No tricuspid regurgitation. Pulmonic Valve The pulmonic valve is not well visualized. Great Vessels The aortic root is not well visualized. The inferior vena cava appeared normal and decreased < 50% with respiration (RAP 10-15 mmHg). Effusions There is no pericardial effusion. : LISA QUAN > Winnie Burnette
[2017-04-16 15:38] LABS: THYROID STIMULATING HORMONE 0.43 uIU/mL (0.47-4.68)
--- NOTE | 2017-04-16 15:40 | RADIOLOGY REPORT (SQ) ---
EXAM DESCRIPTION: VENOUS UNILATERAL LOWER COMPLETED DATE/TIME: 04/16/2017 3:17 pm REASON FOR STUDY: suspect DVT COMPARISON: None. TECHNIQUE: Dynamic and static pelaez scale and color images acquired of the LEFT leg venous system. Se lected spectral images acquired with additional compression and augmentation maneuvers. The contralat eral common femoral vein and saphenofemoral junction were also imaged. Images stored on PACS. LIMITATIONS: Left peroneal veins not well seen due to large body habitus and leg swelling FINDINGS: LEFT COMMON FEMORAL: Normal phasicity, compression and augmentation. No visualized echogenic material on g ray scale. No defects on color images. FEMORAL: Normal compression and augmentation. No visualized echogenic material on pelaez scale. No defe cts on color images. POPLITEAL: Normal compression, augmentation. No visualized echogenic material on pelaez scale. No defec ts on color images. CALF VESSELS: Peroneal veins not well seen. The anterior tibial and posterior veins demonstrate norm al compression, augmentation. No visualized echogenic material on pelaez scale. No defects on color laine ges. GSV and SSV: Normal compression, augmentation. No visualized echogenic material on pelaez scale. No def ects on color images. ANY DEEP VENOUS INSUFFICIENCY: Not evaluated. ANY EVIDENCE OF POPLITEAL CYST: No. OTHER: No other significant finding. RIGHT COMMON FEMORAL VEIN AND SAPHENOFEMORAL JUNCTION: Normal phasicity, compression and augmentation. No visualized echogenic material on pelaez scale. No de fects on color images. IMPRESSION: NO EVIDENCE OF DVT OR SVT IN THE LEFT LEG. TECHNICAL DOCUMENTATION: JOB ID: [id number] [employer]- All Rights Reserved
--- NOTE | 2017-04-16 17:14 | PDOC PROGRESS REPORT ---
Subjective Progress Note for:: 04/16/17 Subjective:: Patient was admitted for the management of severe cellulitis of the left leg, he developed new onset paroxysmal atrial fibrillation last night, he was started on Cardizem infusion, presently rate controlled. The arcadio S2 score is low, he does not need anticoagulation long-term at the moment, a 2D echo is ordered. There is severe swelling of the left leg a stat venous Doppler of the left leg was done it was negative for deep vein thrombosis. Reason For Visit: AFIB AND HEART RATE OF 120-155 Physical Exam Vital Signs: Temp Pulse Resp BP Pulse Ox 98.6 F 101 H 16 103/54 L 95 04/16/17 12:03 04/16/17 14:00 04/16/17 12:03 04/16/17 12:03 04/16/17 12:03 Intake & Output 04/15/17 04/16/17 04/17/17 06:59 06:59 06:59 Intake Total 2080 4390 Output Total 600 300 Balance 1480 4090 Weight 119.3 kg General appearance: PRESENT: no acute distress Eye exam: PRESENT: PERRLA Respiratory exam: PRESENT: clear to auscultation young Cardiovascular exam: PRESENT: +S1, +S2 GI/Abdominal exam: PRESENT: soft Extremities exam: PRESENT: other - swelling ,erythema of the left leg Neurological exam: PRESENT: alert, CN II-XII grossly intact Skin exam: PRESENT: erythema Results Laboratory Results: 04/15/17 05:17 04/16/17 10:00 04/16/17 04/16/17 10:00 10:00 Creatinine 0.57 Est GFR ( Amer) > 60 Est GFR (Non-Af Amer) > 60 TSH 0.43 L Free T4 1.58 Impressions: Head CT 04/14/17 07:24 IMPRESSION: NO ACUTE INTRACRANIAL IMAGING FINDINGS. EVIDENCE OF ACUTE STROKE: NO. Chest X-Ray 04/14/17 11:11 IMPRESSION: NO ACUTE RADIOGRAPHIC FINDING IN THE CHEST. NO SIGNIFICANT CHANGE FROM PRIOR STUDY. Tibia/Fibula X-Ray 04/14/17 13:12 IMPRESSION: NO RADIOGRAPHIC EVIDENCE OF ACUTE INJURY. Foot X-Ray 04/14/17 13:17 IMPRESSION: NEGATIVE STUDY OF THE LEFT FOOT. NO RADIOGRAPHIC EVIDENCE OF ACUTE INJURY. KUB X-Ray 04/15/17 00:00 IMPRESSION: Nonspecific gastric distention. 2011 [employer]- All Rights Reserved Venous Doppler Study 04/16/17 00:00 IMPRESSION: NO EVIDENCE OF DVT OR SVT IN THE LEFT LEG. Assessment & Plan - Diagnosis (1) Cellulitis of left leg Is this a current diagnosis for this admission?: Yes Plan: Continue IV antibiotic (2) Paroxysmal atrial fibrillation with rapid ventricular response Is this a current diagnosis for this admission?: Yes Plan: Discontinue intravenous Cardizem infusion, start p.o. metoprolol succinate (3) Morbid obesity Is this a current diagnosis for this admission?: Yes
[2017-04-16] MEDS: ATORVASTATIN CALCIUM 40 MG TABLET PO SCH (22:44)
[2017-04-16] MEDS: CLINDAMYCIN 900 MG/D5W RTU 50 ML IV SCH (22:45)
[2017-04-17] MEDS: VANCOMYCIN HCL 2,000 MG in DEXTROSE 5%-WATER 500 ML IV SCH ×3 (02:30→17:13)
[2017-04-17] MEDS: ACETAMINOPHEN 325 MG TABLET PO PRN (03:29)
[2017-04-17] MEDS: LANSOPRAZOLE 30 MG TAB.RAP.DR PO SCH (05:36)
[2017-04-17] MEDS: CLINDAMYCIN 900 MG/D5W RTU 50 ML IV SCH ×3 (05:36→22:41)
[2017-04-17] MEDS: METFORMIN HCL 500 MG TABLET PO SCH ×2 (09:44→17:17)
[2017-04-17] MEDS: BUPROPION HCL 75 MG TABLET PO SCH (09:44)
[2017-04-17] MEDS: TAMSULOSIN HCL 0.4 MG CAP.SR.24H PO SCH (09:44)
[2017-04-17] MEDS: BENZTROPINE MESYLATE 1 MG TABLET PO SCH ×2 (09:44→17:16)
[2017-04-17] MEDS: OLANZAPINE 5 MG TAB.RAPDIS SL SCH ×2 (09:44→20:29)
[2017-04-17] MEDS: DIVALPROEX SODIUM 500 MG TAB.SR.24H PO SCH ×2 (09:44→20:31)
[2017-04-17] MEDS: ENOXAPARIN SODIUM INJ 40 MG/0.4 ML DISP.SYRIN SUBCUT SCH (09:45)
[2017-04-17] MEDS: LUBIPROSTONE 24 MCG CAPSULE PO SCH ×2 (09:52→17:16)
[2017-04-17] MEDS: PSYLLIUM SEED-SF 5.85 GM PACKET PO SCH ×2 (09:59→17:17)
[2017-04-17] MEDS: POLYVINYL ALCOHOL 1.4% OPH SOLN 15 ML OU SCH ×5 (09:59→22:43)
[2017-04-17] MEDS ORDERED: METOPROLOL SUCCINATE 50 MG TAB.SR.24H PO SCH (10:00)
[2017-04-17 10:14] LABS: HEMATOCRIT 31.8 % (37.9-51.0); HEMOGLOBIN 10.7 g/dL (13.5-17.0); MEAN CORPUSCULAR HEMOGLOBIN 30.3 pg (27.0-33.4); MEAN CORPUSCULAR HGB CONC 33.8 g/dL (32.0-36.0); MEAN CORPUSCULAR VOLUME 90 fl (80-97); PLATELET COUNT 233 10^3/uL (150-450); RED BLOOD COUNT 3.54 10^6/uL (4.35-5.55); RED CELL DISTRIBUTION WIDTH 15.6 % (11.5-14.0); WHITE BLOOD COUNT 18.5 10^3/uL (4.0-10.5)
[2017-04-17] MEDS ORDERED: CEFTRIAXONE 1 GM/D5W RTU 1 GM/50 ML RTUPB IV ONE (10:15)
[2017-04-17 10:30] LABS: ALANINE AMINOTRANSFERASE 44 U/L (21-72); ALBUMIN 2.3 g/dL (3.5-5.0); ALKALINE PHOSPHATASE 66 U/L (38-126); ANION GAP 9 (5-19); ASPARTATE AMINO TRANSFERASE 76 U/L (17-59); BILIRUBIN,DIRECT 0.2 mg/dL (0.0-0.4); BILIRUBIN,TOTAL 0.4 mg/dL (0.2-1.3); BLOOD UREA NITROGEN 10 mg/dL (7-20); CALCIUM 8.3 mg/dL (8.4-10.2); CARBON DIOXIDE 24 mmol/L (22-30); CHLORIDE 99 mmol/L (98-107); GLUCOSE 76 mg/dL (75-110); POTASSIUM 3.3 mmol/L (3.6-5.0); SODIUM 131.7 mmol/L (137-145); TOTAL PROTEIN 4.7 g/dL (6.3-8.2)
[2017-04-17 10:34] LABS: ABSOLUTE LYMPHOCYTES# (MANUAL) 1.7 10^3/uL (0.5-4.7); ABSOLUTE MONOCYTES # (MANUAL) 1.5 10^3/uL (0.1-1.4); ABSOLUTE NEUTROPHILS# (MANUAL) 15.4 10^3/uL (1.7-8.2); BASOPHILS % (MANUAL) 0 % (0-2); EOSINOPHILS % (MANUAL) 0 % (0-6); LYMPHOCYTES % (MANUAL) 9 % (13-45); MONOCYTES % (MANUAL) 8 % (3-13); SEGMENTED NEUTROPHILS % (MAN) 83 % (42-78); TOTAL CELLS COUNTED 100
[2017-04-17 10:38] LABS: ANISOCYTOSIS SLIGHT; PLATELET COMMENT ADEQUATE; TOXIC GRANULATION 1+; TOXIC VACUOLATION PRESENT
[2017-04-17] MEDS: POTASSIUM CHLORIDE 10 MEQ TABLET.SA PO SCH (11:42)
--- NOTE | 2017-04-17 13:52 | PDOC PROGRESS REPORT ---
Subjective Progress Note for:: 04/17/17 Subjective:: Patient is seen by the bedside, still of severe inflammation/infection of the left leg Reason For Visit: AFIB AND HEART RATE OF 120-155 Physical Exam Vital Signs: Temp Pulse Resp BP Pulse Ox 99.0 F 112 H 20 102/55 L 99 04/17/17 07:32 04/17/17 07:32 04/17/17 07:32 04/17/17 07:32 04/17/17 07:32 Intake & Output 04/16/17 04/17/17 04/18/17 06:59 06:59 06:59 Intake Total 4390 2679 Output Total 300 1425 Balance 4090 1254 Weight 119.3 kg 118.3 kg General appearance: PRESENT: no acute distress Eye exam: PRESENT: PERRLA Respiratory exam: PRESENT: clear to auscultation young Cardiovascular exam: PRESENT: +S1, +S2 GI/Abdominal exam: PRESENT: soft Neurological exam: PRESENT: alert Results Laboratory Results: 04/17/17 09:45 04/17/17 09:45 04/16/17 04/17/17 04/17/17 10:00 09:45 09:45 WBC 18.5 H RBC 3.54 L Hgb 10.7 L Hct 31.8 L MCV 90 MCH 30.3 MCHC 33.8 RDW 15.6 H Plt Count 233 Seg Neutrophils % Not Reportable Lymphocytes % Not Reportable Monocytes % Not Reportable Eosinophils % Not Reportable Basophils % Not Reportable Absolute Neutrophils Not Reportable Absolute Lymphocytes Not Reportable Absolute Monocytes Not Reportable Absolute Eosinophils Not Reportable Absolute Basophils Not Reportable Sodium 131.7 L Potassium 3.3 L Chloride 99 Carbon Dioxide 24 Anion Gap 9 BUN 10 Creatinine 0.58 Est GFR ( Amer) > 60 Est GFR (Non-Af Amer) > 60 Glucose 76 Calcium 8.3 L Total Bilirubin 0.4 AST 76 H ALT 44 Alkaline Phosphatase 66 Total Protein 4.7 L Albumin 2.3 L TSH 0.43 L Free T4 1.58 Impressions: Head CT 04/14/17 07:24 IMPRESSION: NO ACUTE INTRACRANIAL IMAGING FINDINGS. EVIDENCE OF ACUTE STROKE: NO. Chest X-Ray 04/14/17 11:11 IMPRESSION: NO ACUTE RADIOGRAPHIC FINDING IN THE CHEST. NO SIGNIFICANT CHANGE FROM PRIOR STUDY. Tibia/Fibula X-Ray 04/14/17 13:12 IMPRESSION: NO RADIOGRAPHIC EVIDENCE OF ACUTE INJURY. Foot X-Ray 04/14/17 13:17 IMPRESSION: NEGATIVE STUDY OF THE LEFT FOOT. NO RADIOGRAPHIC EVIDENCE OF ACUTE INJURY. KUB X-Ray 04/15/17 00:00 IMPRESSION: Nonspecific gastric distention. [facility] [employer]- All Rights Reserved Venous Doppler Study 04/16/17 00:00 IMPRESSION: NO EVIDENCE OF DVT OR SVT IN THE LEFT LEG. Assessment & Plan - Diagnosis (1) Cellulitis of left leg Is this a current diagnosis for this admission?: Yes (2) Paroxysmal atrial fibrillation with rapid ventricular response Is this a current diagnosis for this admission?: Yes Plan: The heart rate still over 100, increase dose of metoprolol (3) Morbid obesity Is this a current diagnosis for this admission?: Yes
[2017-04-17] MEDS: METOPROLOL SUCCINATE 50 MG TAB.SR.24H PO SCH (17:20)
[2017-04-17 18:16] LABS: VANCOMYCIN,TROUGH 28.1 ug/mL (5.0-20.0)
[2017-04-17] MEDS: ATORVASTATIN CALCIUM 40 MG TABLET PO SCH (20:30)
[2017-04-18] MEDS ORDERED: NICOTINE 21 MG/24 HR PATCH.TD24 TD ONE (00:45)
[2017-04-18] MEDS: VANCOMYCIN HCL 2,000 MG in DEXTROSE 5%-WATER 500 ML IV SCH ×2 (03:03→11:33)
[2017-04-18] MEDS: CLINDAMYCIN 900 MG/D5W RTU 50 ML IV SCH ×3 (05:28→22:19)
[2017-04-18] MEDS: LANSOPRAZOLE 30 MG TAB.RAP.DR PO SCH (05:29)
[2017-04-18] MEDS: CEFTRIAXONE SODIUM 1,000 MG in DEXTROSE 5%-WATER 50 ML IV SCH (07:51)
[2017-04-18] MEDS: METFORMIN HCL 500 MG TABLET PO SCH ×2 (07:52→16:42)
[2017-04-18] MEDS ORDERED: CEFTRIAXONE 1 GM/D5W RTU 1 GM/50 ML RTUPB IV SCH (08:00)
[2017-04-18] MEDS: POLYVINYL ALCOHOL 1.4% OPH SOLN 15 ML OU SCH ×4 (09:06→22:19)
[2017-04-18] MEDS: TAMSULOSIN HCL 0.4 MG CAP.SR.24H PO SCH (09:06)
[2017-04-18] MEDS: BENZTROPINE MESYLATE 1 MG TABLET PO SCH ×2 (09:06→18:13)
[2017-04-18] MEDS: LUBIPROSTONE 24 MCG CAPSULE PO SCH ×2 (09:06→18:13)
[2017-04-18] MEDS: DIVALPROEX SODIUM 500 MG TAB.SR.24H PO SCH ×2 (09:06→22:19)
[2017-04-18] MEDS: BUPROPION HCL 75 MG TABLET PO SCH (09:06)
[2017-04-18] MEDS: OLANZAPINE 5 MG TAB.RAPDIS SL SCH ×2 (09:07→22:19)
[2017-04-18] MEDS: PSYLLIUM SEED-SF 5.85 GM PACKET PO SCH ×2 (09:07→18:13)
[2017-04-18] MEDS: ENOXAPARIN SODIUM INJ 40 MG/0.4 ML DISP.SYRIN SUBCUT SCH (09:08)
[2017-04-18 10:24] LABS: HEMATOCRIT 29.8 % (37.9-51.0); MEAN CORPUSCULAR HEMOGLOBIN 30.3 pg (27.0-33.4); MEAN CORPUSCULAR HGB CONC 33.6 g/dL (32.0-36.0); MEAN CORPUSCULAR VOLUME 90 fl (80-97); PLATELET COUNT 289 10^3/uL (150-450); RED BLOOD COUNT 3.31 10^6/uL (4.35-5.55); RED CELL DISTRIBUTION WIDTH 15.9 % (11.5-14.0); WHITE BLOOD COUNT 19.7 10^3/uL (4.0-10.5)
[2017-04-18 10:36] LABS: ALANINE AMINOTRANSFERASE 46 U/L (21-72); ALBUMIN 2.3 g/dL (3.5-5.0); ALKALINE PHOSPHATASE 81 U/L (38-126); ANION GAP 8 (5-19); ASPARTATE AMINO TRANSFERASE 72 U/L (17-59); BILIRUBIN,DIRECT 0.2 mg/dL (0.0-0.4); BILIRUBIN,TOTAL 0.3 mg/dL (0.2-1.3); BLOOD UREA NITROGEN 12 mg/dL (7-20); CALCIUM 8.2 mg/dL (8.4-10.2); CARBON DIOXIDE 25 mmol/L (22-30); CHLORIDE 99 mmol/L (98-107); GLUCOSE 81 mg/dL (75-110); POTASSIUM 3.4 mmol/L (3.6-5.0); SODIUM 132.4 mmol/L (137-145); TOTAL PROTEIN 4.7 g/dL (6.3-8.2)
[2017-04-18 10:43] LABS: VANCOMYCIN,TROUGH 21.6 ug/mL (5.0-20.0)
[2017-04-18 10:48] LABS: ABSOLUTE MONOCYTES # (MANUAL) 0.8 10^3/uL (0.1-1.4); ABSOLUTE NEUTROPHILS# (MANUAL) 17.9 10^3/uL (1.7-8.2); BAND NEUTROPHILS % (MANUAL) 6 % (3-5); BASOPHILS % (MANUAL) 0 % (0-2); EOSINOPHILS % (MANUAL) 0 % (0-6); LYMPHOCYTES % (MANUAL) 5 % (13-45); MONOCYTES % (MANUAL) 4 % (3-13); SEGMENTED NEUTROPHILS % (MAN) 85 % (42-78); TOTAL CELLS COUNTED 100
[2017-04-18 10:50] LABS: TOXIC GRANULATION 1+; TOXIC VACUOLATION PRESENT
[2017-04-18 10:51] LABS: ANISOCYTOSIS 1+; OVALOCYTES SLIGHT; PLATELET CLUMPS PRESENT; PLATELET COMMENT ADEQUATE; POLYCHROMASIA SLIGHT
[2017-04-18] MEDS: POTASSIUM CHLORIDE 10 MEQ TABLET.SA PO SCH (11:33)
--- NOTE | 2017-04-18 11:56 | PDOC PROGRESS REPORT ---
Subjective Progress Note for:: 04/18/17 Subjective:: Patient was admitted for the management of severe cellulitis of the left leg, on inspection of the leg today, especially at the left ankle area there is area of necrosis of the skin, lots of exudative secretion, patient may need debridement, consultation will be requested from surgery, I do not think this is compartment syndrome. Reason For Visit: AFIB AND HEART RATE OF 120-155 Physical Exam Vital Signs: Temp Pulse Resp BP Pulse Ox 97.9 F 119 H 20 107/45 L 96 04/18/17 07:51 04/18/17 07:51 04/18/17 07:51 04/18/17 07:51 04/18/17 07:51 Intake & Output 04/17/17 04/18/17 04/19/17 06:59 06:59 06:59 Intake Total 2679 2050 Output Total 1425 3300 Balance 1254 -1250 Weight 118.3 kg General appearance: PRESENT: no acute distress, well-developed, well-nourished Head exam: PRESENT: atraumatic, normocephalic Eye exam: PRESENT: PERRLA Neck exam: PRESENT: full ROM Respiratory exam: PRESENT: clear to auscultation young Cardiovascular exam: PRESENT: RRR, +S1, +S2 GI/Abdominal exam: PRESENT: normal bowel sounds, soft Rectal exam: PRESENT: deferred Extremities exam: PRESENT: pedal edema, other - There is necrosis, slough, of the skin of the left ankle Neurological exam: PRESENT: alert Skin exam: PRESENT: dry, intact, warm Results Laboratory Results: 04/18/17 10:03 04/18/17 10:03 04/17/17 04/18/17 04/18/17 17:45 10:03 10:03 WBC 19.7 H RBC 3.31 L Hgb 10.0 L Hct 29.8 L MCV 90 MCH 30.3 MCHC 33.6 RDW 15.9 H Plt Count 289 Seg Neutrophils % Not Reportable Lymphocytes % Not Reportable Monocytes % Not Reportable Eosinophils % Not Reportable Basophils % Not Reportable Absolute Neutrophils Not Reportable Absolute Lymphocytes Not Reportable Absolute Monocytes Not Reportable Absolute Eosinophils Not Reportable Absolute Basophils Not Reportable Sodium 132.4 L Potassium 3.4 L Chloride 99 Carbon Dioxide 25 Anion Gap 8 BUN 12 Creatinine 0.58 0.80 Est GFR ( Amer) > 60 > 60 Est GFR (Non-Af Amer) > 60 > 60 Glucose 81 Calcium 8.2 L Total Bilirubin 0.3 AST 72 H ALT 46 Alkaline Phosphatase 81 Total Protein 4.7 L Albumin 2.3 L Impressions: Head CT 04/14/17 07:24 IMPRESSION: NO ACUTE INTRACRANIAL IMAGING FINDINGS. EVIDENCE OF ACUTE STROKE: NO. Chest X-Ray 04/14/17 11:11 IMPRESSION: NO ACUTE RADIOGRAPHIC FINDING IN THE CHEST. NO SIGNIFICANT CHANGE FROM PRIOR STUDY. Tibia/Fibula X-Ray 04/14/17 13:12 IMPRESSION: NO RADIOGRAPHIC EVIDENCE OF ACUTE INJURY. Foot X-Ray 04/14/17 13:17 IMPRESSION: NEGATIVE STUDY OF THE LEFT FOOT. NO RADIOGRAPHIC EVIDENCE OF ACUTE INJURY. KUB X-Ray 04/15/17 00:00 IMPRESSION: Nonspecific gastric distention. [facility] [employer]- All Rights Reserved Venous Doppler Study 04/16/17 00:00 IMPRESSION: NO EVIDENCE OF DVT OR SVT IN THE LEFT LEG. Assessment & Plan - Diagnosis (1) Cellulitis of left leg Is this a current diagnosis for this admission?: Yes (2) Paroxysmal atrial fibrillation with rapid ventricular response Is this a current diagnosis for this admission?: Yes (3) Morbid obesity Is this a current diagnosis for this admission?: Yes - Plan Summary Plan Summary: Surgical consultation is obtained for evaluation of the left ankle for possible debridement of areas of devitalization of the skin
--- NOTE | 2017-04-18 15:32 | PDOC CONSULTATION ---
History of Present Illness Admission Date/PCP: 04/14/17 14:28 LISA QUAN MD Patient complains of: left lowr leg tenderness History of Present Illness: Patient claims his left lower leg has been swollen for the past 6 months. Nurse claims dark discoloration left lateral foot/ankle just noted this am. Patient denies any trauma and no pains unless left lower leg is touched. Past Medical History Cardiac Medical History: Reports: Hyperlipidema, Hypertension Pulmonary Medical History: Reports: Pneumonia - "Neurocognitive Disorder" Endocrine Medical History: Reports: Diabetes Mellitus Type 2 Psychiatric Medical History: Reports: Depression Past Surgical History Past Surgical History: Reports: Orthopedic Surgery - Left Knee Social History Smoking Status: Current Every Day Smoker Cigarettes Packs Per Day: 1 Frequency of Alcohol Use: None Hx Recreational Drug Use: No Drugs: None Hx Prescription Drug Abuse: No - Advance Directive Resuscitation Status: Full Code Family History Family History: Reviewed & Not Pertinent Parental Family History Reviewed: Yes Children Family History Reviewed: Yes Sibling(s) Family History Reviewed.: Yes Medication/Allergy Home Medications: Acetaminophen [Tylenol 325 mg Tablet] 650 mg PO Q4HP PRN 04/14/17 Acetaminophen [Tylenol 325 mg Tablet] 650 mg PO Q8 04/14/17 Atenolol [Tenormin] 50 mg PO DAILY 04/14/17 Benztropine Mesylate 1 mg PO BID 04/14/17 Bismuth Subsalicylate [Bismuth] 15 ml PO Q4HP PRN 04/14/17 Bupropion HCl [Wellbutrin 75 mg Tablet] 75 mg PO DAILY 04/14/17 Calcium Carbonate [Tums Chewable 500 mg Tab.chew] 1,000 mg PO Q1HP PRN 04/14/17 Diazepam [Valium 5 mg Tablet] 5 mg PO Q8HP PRN 04/14/17 Divalproex Sodium [Depakote] 1,000 mg PO QHS 04/14/17 Divalproex Sodium [Depakote] 500 mg PO DAILY 04/14/17 Doxepin HCl [Silenor] 3 mg PO QHS 04/14/17 Ergocalciferol (Vitamin D2) [Drisdol 50,000 unit (1.25MG) Capsule] 50,000 unit PO MO@1000 04/14/17 Lubiprostone [Amitiza] 24 mcg PO BID 04/14/17 Mag Hydrox/Al Hydrox/Simeth [Maalox Plus Susp 30 Udcup] 30 ml PO Q4HP PRN Magnesium Hydroxide [Milk of Magnesia 30 ml Udcup] 30 ml PO BIDP PRN 04/14/17 Melatonin [Melatin] 3 mg PO QHS 04/14/17 Metformin HCl [Glucophage] 1,000 mg PO BIDBS 04/14/17 Methylcellulose [Fiber] 1,000 mg PO BID 04/14/17 Olanzapine [Olanzapine Odt] 15 mg SL BID 04/14/17 Propylene Glycol/Peg 400/Pf [Systane 0.3-0.4% Eye Drops] 1 drop OU QID 04/14/17 Rosuvastatin Calcium [Crestor 20 mg Tablet] 20 mg PO DAILY 04/14/17 Sennosides [Senna] 8.6 mg PO DAILYP PRN 04/14/17 Tamsulosin HCl [Flomax 0.4 mg Cap.sr] 0.4 mg PO DAILY 04/14/17 Zolpidem Tartrate [Ambien] 10 mg PO QHS 04/14/17 Allergies/Adverse Reactions: Penicillins Allergy (Verified 11/23/15 11:27) Review of Systems Constitutional: PRESENT: weakness, other Eyes: PRESENT: other - no visual/hearing problems Nose, Mouth, and Throat: PRESENT: other - no sore throat Cardiovascular: PRESENT: other - no chest pains Respiratory: PRESENT: other - no cough Gastrointestinal: PRESENT: other - Claims his GI doctor told him he has "lazy Bowel" Musculoskeletal: PRESENT: muscle weakness Integumentary: PRESENT: erythema - left lower leg with swelling Neurological: PRESENT: weakness Psychiatric: PRESENT: depression Endocrine: PRESENT: other - no polyuria Hematologic/Lymphatic: PRESENT: easy bruising - left lower leg Physical Exam Vital Signs: Temp Pulse Resp BP Pulse Ox 97.9 F 119 H 20 107/45 L 96 04/18/17 07:51 04/18/17 07:51 04/18/17 07:51 04/18/17 07:51 04/18/17 07:51 Intake & Output 04/17/17 04/18/17 04/19/17 06:59 06:59 06:59 Intake Total 2679 2050 0 Output Total 1425 3300 400 Balance 1254 -1250 -400 Weight 118.3 kg General appearance: PRESENT: no acute distress Head exam: PRESENT: atraumatic Eye exam: PRESENT: conjunctiva pink Mouth exam: PRESENT: moist, tongue midline Neck exam: PRESENT: other - trachea midline Respiratory exam: PRESENT: clear to auscultation young Cardiovascular exam: PRESENT: RRR Pulses: PRESENT: normal dorsalis pedis pul - left ankle with normal Posterior tibial artery pulse GI/Abdominal exam: PRESENT: soft - Has a small umbilical hernia,reducible nontender Rectal exam: PRESENT: deferred Extremities exam: PRESENT: pedal edema, +2 edema - with erythema and blisters left lower leg below knee. Small raw area on midanterolateral calf about [id number]. Has diffuse erythema with onion skin whole left below knee anterolateral area. Left lateral foot/ankle with large Unopened slightly dark discolored blister. No evidenced of collection underneath skin at this time which was noticed by his nurse this am prompting the consult. Neurological exam: PRESENT: alert, oriented to person, oriented to place, oriented to time, oriented to situation Psychiatric exam: PRESENT: appropriate affect Skin exam: PRESENT: erythema - with thin skin blisters with patchy dark discoloration. Results Laboratory Results: 04/18/17 10:03 04/18/17 10:03 04/17/17 04/18/17 04/18/17 17:45 10:03 10:03 WBC 19.7 H RBC 3.31 L Hgb 10.0 L Hct 29.8 L MCV 90 MCH 30.3 MCHC 33.6 RDW 15.9 H Plt Count 289 Seg Neutrophils % Not Reportable Lymphocytes % Not Reportable Monocytes % Not Reportable Eosinophils % Not Reportable Basophils % Not Reportable Absolute Neutrophils Not Reportable Absolute Lymphocytes Not Reportable Absolute Monocytes Not Reportable Absolute Eosinophils Not Reportable Absolute Basophils Not Reportable Sodium 132.4 L Potassium 3.4 L Chloride 99 Carbon Dioxide 25 Anion Gap 8 BUN 12 Creatinine 0.58 0.80 Est GFR ( Amer) > 60 > 60 Est GFR (Non-Af Amer) > 60 > 60 Glucose 81 Calcium 8.2 L Total Bilirubin 0.3 AST 72 H ALT 46 Alkaline Phosphatase 81 Total Protein 4.7 L Albumin 2.3 L Impressions: Head CT 04/14/17 07:24 IMPRESSION: NO ACUTE INTRACRANIAL IMAGING FINDINGS. EVIDENCE OF ACUTE STROKE: NO. Chest X-Ray 04/14/17 11:11 IMPRESSION: NO ACUTE RADIOGRAPHIC FINDING IN THE CHEST. NO SIGNIFICANT CHANGE FROM PRIOR STUDY. Tibia/Fibula X-Ray 04/14/17 13:12 IMPRESSION: NO RADIOGRAPHIC EVIDENCE OF ACUTE INJURY. Foot X-Ray 04/14/17 13:17 IMPRESSION: NEGATIVE STUDY OF THE LEFT FOOT. NO RADIOGRAPHIC EVIDENCE OF ACUTE INJURY. KUB X-Ray 04/15/17 00:00 IMPRESSION: Nonspecific gastric distention. [facility] [place] [employer]- All Rights Reserved Venous Doppler Study 04/16/17 00:00 IMPRESSION: NO EVIDENCE OF DVT OR SVT IN THE LEFT LEG. Assessment & Plan - Time Time Spent: 30 to 50 Minutes - Inpatient Certification Medical Necessity: Significant Comorbidiites Make Outpatient Treatment Too Risky , Need for IV Antibiotics, Risk of Complication if Not Cared For in Hospital - Plan Summary Plan Summary: Start silvadene cream over denuded skin area left lower leg BID Continue IV antibiotics. Venous ultrasound both legs if not done yet Left leg elevation to hopefully decreased the edema Will follow
[2017-04-18] MEDS: VANCOMYCIN HCL 1,250 MG in DEXTROSE 5%-WATER 250 ML IV SCH (18:13)
[2017-04-18] MEDS: METOPROLOL SUCCINATE 50 MG TAB.SR.24H PO SCH (18:14)
[2017-04-18] MEDS: SILVER SULFADIAZINE 1% CREAM 400 GM TP SCH (18:21)
[2017-04-18] MEDS: ATORVASTATIN CALCIUM 40 MG TABLET PO SCH (22:19)
[2017-04-18] MEDS: NICOTINE 21 MG/24 HR PATCH.TD24 TD SCH (22:21)
[2017-04-19] MEDS: VANCOMYCIN HCL 1,250 MG in DEXTROSE 5%-WATER 250 ML IV SCH ×3 (01:54→17:48)
[2017-04-19] MEDS: CLINDAMYCIN 900 MG/D5W RTU 50 ML IV SCH ×3 (06:01→22:52)
[2017-04-19] MEDS: LANSOPRAZOLE 30 MG TAB.RAP.DR PO SCH (06:01)
[2017-04-19] MEDS: METFORMIN HCL 500 MG TABLET PO SCH ×2 (08:24→17:47)
[2017-04-19] MEDS: CEFTRIAXONE SODIUM 1,000 MG in DEXTROSE 5%-WATER 50 ML IV SCH (08:25)
[2017-04-19] MEDS: ENOXAPARIN SODIUM INJ 40 MG/0.4 ML DISP.SYRIN SUBCUT SCH (10:17)
[2017-04-19] MEDS: PSYLLIUM SEED-SF 5.85 GM PACKET PO SCH ×2 (10:18→17:47)
[2017-04-19] MEDS: BENZTROPINE MESYLATE 1 MG TABLET PO SCH ×2 (10:18→17:46)
[2017-04-19] MEDS: OLANZAPINE 5 MG TAB.RAPDIS SL SCH ×2 (10:19→22:52)
[2017-04-19] MEDS: BUPROPION HCL 75 MG TABLET PO SCH (10:19)
[2017-04-19] MEDS: TAMSULOSIN HCL 0.4 MG CAP.SR.24H PO SCH (10:19)
[2017-04-19] MEDS: DIVALPROEX SODIUM 500 MG TAB.SR.24H PO SCH ×2 (10:19→22:52)
[2017-04-19] MEDS: LUBIPROSTONE 24 MCG CAPSULE PO SCH ×2 (10:20→17:47)
[2017-04-19] MEDS: POLYVINYL ALCOHOL 1.4% OPH SOLN 15 ML OU SCH ×4 (10:22→22:52)
[2017-04-19] MEDS: SILVER SULFADIAZINE 1% CREAM 400 GM TP SCH ×2 (10:22→17:48)
[2017-04-19] MEDS: POTASSIUM CHLORIDE 10 MEQ TABLET.SA PO SCH (12:19)
--- NOTE | 2017-04-19 13:00 | PDOC PROGRESS REPORT ---
Subjective Progress Note for:: 04/19/17 Subjective:: Patient is currently doing fair seen by the general surgery for the left lower extremity cellulitis and suggest to elevate the foot and dressing change and continues to IV antibiotic and suggest oral ultrasound to rule out the DVT Reason For Visit: AFIB AND HEART RATE OF 120-155 Physical Exam Vital Signs: Temp Pulse Resp BP Pulse Ox 98.1 F 100 28 H 101/69 96 04/19/17 07:17 04/19/17 07:17 04/19/17 07:17 04/19/17 07:17 04/19/17 07:17 Intake & Output 04/18/17 04/19/17 04/20/17 06:59 06:59 06:59 Intake Total 2049 1986 Output Total 3300 1450 Balance -1250 537 Weight 114.1 kg General appearance: PRESENT: no acute distress, well-developed, well-nourished Head exam: PRESENT: atraumatic, normocephalic Eye exam: PRESENT: conjunctiva pink, EOMI, PERRLA. ABSENT: scleral icterus Ear exam: PRESENT: normal external ear exam Mouth exam: PRESENT: moist, tongue midline Neck exam: PRESENT: full ROM. ABSENT: carotid bruit, JVD, lymphadenopathy, thyromegaly Respiratory exam: PRESENT: clear to auscultation young Cardiovascular exam: PRESENT: RRR. ABSENT: diastolic murmur, rubs, systolic murmur Pulses: PRESENT: normal dorsalis pedis pul, +2 pedal pulses bilateral Vascular exam: PRESENT: normal capillary refill GI/Abdominal exam: PRESENT: normal bowel sounds, soft. ABSENT: distended, guarding, mass, organolmegaly, rebound, tenderness Rectal exam: PRESENT: deferred Extremities exam: PRESENT: pedal edema Additional comments: Lower extremities the swelling and the redness is present Neurological exam: PRESENT: alert, awake, oriented to person, oriented to place. ABSENT: motor sensory deficit Psychiatric exam: PRESENT: appropriate affect, normal mood. ABSENT: homicidal ideation, suicidal ideation Skin exam: PRESENT: dry, intact, warm. ABSENT: cyanosis, rash Results Laboratory Results: 04/18/17 10:03 04/18/17 10:03 Impressions: Head CT 04/14/17 07:24 IMPRESSION: NO ACUTE INTRACRANIAL IMAGING FINDINGS. EVIDENCE OF ACUTE STROKE: NO. Chest X-Ray 04/14/17 11:11 IMPRESSION: NO ACUTE RADIOGRAPHIC FINDING IN THE CHEST. NO SIGNIFICANT CHANGE FROM PRIOR STUDY. Tibia/Fibula X-Ray 04/14/17 13:12 IMPRESSION: NO RADIOGRAPHIC EVIDENCE OF ACUTE INJURY. Foot X-Ray 04/14/17 13:17 IMPRESSION: NEGATIVE STUDY OF THE LEFT FOOT. NO RADIOGRAPHIC EVIDENCE OF ACUTE INJURY. KUB X-Ray 04/15/17 00:00 IMPRESSION: Nonspecific gastric distention. 2010 [employer]- All Rights Reserved Venous Doppler Study 04/16/17 00:00 IMPRESSION: NO EVIDENCE OF DVT OR SVT IN THE LEFT LEG. Assessment & Plan - Diagnosis (1) Cellulitis of left leg Is this a current diagnosis for this admission?: Yes Plan: Continue IV antibiotic (2) HLD (hyperlipidemia) Qualifiers: Hyperlipidemia type: pure hypercholesterolemia Qualified Code(s): E78.00 - Pure hypercholesterolemia, unspecified; E78.0 - Pure hypercholesterolemia Is this a current diagnosis for this admission?: Yes (3) HTN (hypertension) Qualifiers: Hypertension type: essential hypertension Qualified Code(s): I10 - Essential (primary) hypertension Is this a current diagnosis for this admission?: Yes (4) Bipolar 1 disorder Is this a current diagnosis for this admission?: Yes (5) Type 2 diabetes mellitus Qualifiers: Diabetes mellitus complication status: without complication 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
--- NOTE | 2017-04-19 16:22 | PDOC PROGRESS REPORT ---
Subjective Progress Note for:: 04/19/17 Subjective:: less pains left lower leg Reason For Visit: AFIB AND HEART RATE OF 120-155 Physical Exam Vital Signs: Temp Pulse Resp BP Pulse Ox 98.4 F 116 H 20 103/63 97 04/19/17 11:17 04/19/17 14:00 04/19/17 11:17 04/19/17 11:17 04/19/17 11:17 Intake & Output 04/18/17 04/19/17 04/20/17 06:59 06:59 06:59 Intake Total 2049 1987 118 Output Total 3300 1450 975 Balance -1250 537 -857 Weight 114.1 kg Exam: left lower leg cellulitis and edema improving. Opened blister on left lateral foot with no purulent discharge Results Laboratory Results: 04/18/17 10:03 04/18/17 10:03 Impressions: Head CT 04/14/17 07:24 IMPRESSION: NO ACUTE INTRACRANIAL IMAGING FINDINGS. EVIDENCE OF ACUTE STROKE: NO. Chest X-Ray 04/14/17 11:11 IMPRESSION: NO ACUTE RADIOGRAPHIC FINDING IN THE CHEST. NO SIGNIFICANT CHANGE FROM PRIOR STUDY. Tibia/Fibula X-Ray 04/14/17 13:12 IMPRESSION: NO RADIOGRAPHIC EVIDENCE OF ACUTE INJURY. Foot X-Ray 04/14/17 13:17 IMPRESSION: NEGATIVE STUDY OF THE LEFT FOOT. NO RADIOGRAPHIC EVIDENCE OF ACUTE INJURY. KUB X-Ray 04/15/17 00:00 IMPRESSION: Nonspecific gastric distention. [facility] [employer] All Rights Reserved Venous Doppler Study 04/16/17 00:00 IMPRESSION: NO EVIDENCE OF DVT OR SVT IN THE LEFT LEG. Assessment & Plan - Time Time Spent with patient: 15-24 minutes - Inpatient Certification Medical Necessity: Need Close Monitoring Due to Risk of Patient Decompensation, Need for Pain Control, Need for IV Antibiotics, Risk of Complication if Not Cared For in Hospital - Plan Summary Plan Summary: Continue IV antibiotics,silvadene topical BID and leg elevation. Pt had doppler done 04/16/17 with no DVT left leg. No need to reorder.
[2017-04-19] MEDS: METOPROLOL SUCCINATE 50 MG TAB.SR.24H PO SCH (17:46)
[2017-04-19 18:14] LABS: VANCOMYCIN,TROUGH 21.5 ug/mL (5.0-20.0)
[2017-04-19] MEDS: NICOTINE 21 MG/24 HR PATCH.TD24 TD SCH (22:52)
[2017-04-19] MEDS: ATORVASTATIN CALCIUM 40 MG TABLET PO SCH (22:52)
[2017-04-20] MEDS: VANCOMYCIN HCL 1,250 MG in DEXTROSE 5%-WATER 250 ML IV SCH (02:20)
[2017-04-20] MEDS: CLINDAMYCIN 900 MG/D5W RTU 50 ML IV SCH ×3 (06:05→21:58)
[2017-04-20] MEDS: LANSOPRAZOLE 30 MG TAB.RAP.DR PO SCH (06:06)
--- NOTE | 2017-04-20 09:54 | PDOC PROGRESS REPORT ---
Subjective Progress Note for:: 04/20/17 Subjective:: Less pains left lower leg lesion. Able to move left toes better Reason For Visit: AFIB AND HEART RATE OF 120-155 Physical Exam Vital Signs: Temp Pulse Resp BP Pulse Ox 98.7 F 116 H 28 H 94/64 L 99 04/20/17 07:21 04/20/17 07:21 04/20/17 07:21 04/20/17 07:21 04/20/17 07:21 Intake & Output 04/19/17 04/20/17 04/21/17 06:59 06:59 06:59 Intake Total 1986 1827 Output Total 14497 Balance 537 -247 Weight 114.1 kg 119.7 kg Exam: Swelling and erythema improving with silvadene dressing and IV antibiotics Results Laboratory Results: 04/18/17 10:03 04/19/17 17:40 04/19/17 17:40 Creatinine 0.87 Est GFR ( Amer) > 60 Est GFR (Non-Af Amer) > 60 Impressions: Head CT 04/14/17 07:24 IMPRESSION: NO ACUTE INTRACRANIAL IMAGING FINDINGS. EVIDENCE OF ACUTE STROKE: NO. Chest X-Ray 04/14/17 11:11 IMPRESSION: NO ACUTE RADIOGRAPHIC FINDING IN THE CHEST. NO SIGNIFICANT CHANGE FROM PRIOR STUDY. Tibia/Fibula X-Ray 04/14/17 13:12 IMPRESSION: NO RADIOGRAPHIC EVIDENCE OF ACUTE INJURY. Foot X-Ray 04/14/17 13:17 IMPRESSION: NEGATIVE STUDY OF THE LEFT FOOT. NO RADIOGRAPHIC EVIDENCE OF ACUTE INJURY. KUB X-Ray 04/15/17 00:00 IMPRESSION: Nonspecific gastric distention. 2011 [employer]- All Rights Reserved Venous Doppler Study 04/16/17 00:00 IMPRESSION: NO EVIDENCE OF DVT OR SVT IN THE LEFT LEG. Assessment & Plan - Time Time Spent with patient: 15-24 minutes - Plan Summary Plan Summary: Continue IV antibiotics, silvadene topical placement and leg elevation
[2017-04-20] MEDS: METFORMIN HCL 500 MG TABLET PO SCH ×2 (11:11→17:41)
[2017-04-20] MEDS: POTASSIUM CHLORIDE 10 MEQ TABLET.SA PO SCH (11:12)
[2017-04-20] MEDS: CEFTRIAXONE SODIUM 1,000 MG in DEXTROSE 5%-WATER 50 ML IV SCH (11:13)
[2017-04-20] MEDS: TAMSULOSIN HCL 0.4 MG CAP.SR.24H PO SCH (11:14)
[2017-04-20] MEDS: BUPROPION HCL 75 MG TABLET PO SCH (11:14)
[2017-04-20] MEDS: BENZTROPINE MESYLATE 1 MG TABLET PO SCH ×2 (11:14→17:41)
[2017-04-20] MEDS: DIVALPROEX SODIUM 500 MG TAB.SR.24H PO SCH ×2 (11:14→21:58)
[2017-04-20] MEDS: POLYVINYL ALCOHOL 1.4% OPH SOLN 15 ML OU SCH ×4 (11:15→21:58)
[2017-04-20] MEDS: LUBIPROSTONE 24 MCG CAPSULE PO SCH ×2 (11:15→17:41)
[2017-04-20] MEDS: OLANZAPINE 5 MG TAB.RAPDIS SL SCH ×2 (11:15→21:58)
[2017-04-20] MEDS: SILVER SULFADIAZINE 1% CREAM 400 GM TP SCH ×2 (11:16→17:43)
[2017-04-20] MEDS: PSYLLIUM SEED-SF 5.85 GM PACKET PO SCH ×2 (11:16→17:41)
[2017-04-20] MEDS: ENOXAPARIN SODIUM INJ 40 MG/0.4 ML DISP.SYRIN SUBCUT SCH (11:17)
[2017-04-20] MEDS: METOPROLOL SUCCINATE 50 MG TAB.SR.24H PO SCH (17:40)
[2017-04-20] MEDS: VANCOMYCIN HCL 1,000 MG in DEXTROSE 5%-WATER 250 ML IV SCH (17:42)
--- NOTE | 2017-04-20 21:43 | PROGRESS NOTE E ---
Progress Note NAME: KATHLEEN HARRISON : 1955 AGE: 61Y DATE: 04/20/2017 ROOM: 329 SUBJECTIVE: The patient apparently doing fair. No chest pain. No shortness of breath. The patient seen by general surgery about the left leg and currently all stable. No overnight events happened. OBJECTIVE: VITAL SIGNS: Currently stable. GENERAL: The patient is alert, awake, oriented, in no acute distress. HEAD AND NECK: Normocephalic. PERRLA. LUNGS: No wheezing, no rales, no rhonchi. HEART: S1, S2 is present. ABDOMEN: Soft. Bowel sounds present. EXTREMITIES: On the left lower extremity the redness is still present with some mild swelling. ASSESSMENT: 1. LEFT LOWER EXTREMITY CELLULITIS. Currently all stable, continue the current medications. Follow with general surgery. 2. OTHER MULTIPLE COMORBIDITIES CURRENTLY ALL STABLE. PLAN: Continue the current medications. See other MD orders. DICTATING PHYSICIAN: VICKI JARVIS M.D. [id number] [facility]#: [id number] ID: [id number] JOB#: [id number] ACCT: [id number] cc: >
[2017-04-20] MEDS: ATORVASTATIN CALCIUM 40 MG TABLET PO SCH (21:58)
[2017-04-20] MEDS: NICOTINE 21 MG/24 HR PATCH.TD24 TD SCH (23:47)
[2017-04-21] MEDS: VANCOMYCIN HCL 1,000 MG in DEXTROSE 5%-WATER 250 ML IV SCH ×3 (02:00→18:33)
[2017-04-21] MEDS: CLINDAMYCIN 900 MG/D5W RTU 50 ML IV SCH ×3 (06:02→22:02)
[2017-04-21] MEDS: LANSOPRAZOLE 30 MG TAB.RAP.DR PO SCH (06:02)
[2017-04-21] MEDS: METFORMIN HCL 500 MG TABLET PO SCH ×2 (08:24→17:01)
[2017-04-21] MEDS: CEFTRIAXONE SODIUM 1,000 MG in DEXTROSE 5%-WATER 50 ML IV SCH (08:25)
[2017-04-21] MEDS ORDERED: ERGOCALCIFEROL (VITAMIN D2) 50000 UNIT (1.25 MG) CAPSULE PO SCH (10:00)
[2017-04-21] MEDS: POLYVINYL ALCOHOL 1.4% OPH SOLN 15 ML OU SCH ×4 (12:31→22:10)
[2017-04-21] MEDS: LUBIPROSTONE 24 MCG CAPSULE PO SCH ×2 (12:32→17:01)
[2017-04-21] MEDS: DIVALPROEX SODIUM 500 MG TAB.SR.24H PO SCH ×2 (12:32→21:59)
[2017-04-21] MEDS: PSYLLIUM SEED-SF 5.85 GM PACKET PO SCH ×2 (12:32→18:33)
[2017-04-21] MEDS: BENZTROPINE MESYLATE 1 MG TABLET PO SCH ×2 (12:32→17:01)
[2017-04-21] MEDS: SILVER SULFADIAZINE 1% CREAM 400 GM TP SCH ×2 (12:32→17:02)
[2017-04-21] MEDS: BUPROPION HCL 75 MG TABLET PO SCH (12:33)
[2017-04-21] MEDS: OLANZAPINE 5 MG TAB.RAPDIS SL SCH ×2 (12:33→22:00)
[2017-04-21] MEDS: TAMSULOSIN HCL 0.4 MG CAP.SR.24H PO SCH (12:34)
[2017-04-21] MEDS: ACETAMINOPHEN 325 MG TABLET PO PRN (12:34)
[2017-04-21] MEDS: POTASSIUM CHLORIDE 10 MEQ TABLET.SA PO SCH (12:34)
[2017-04-21] MEDS: ENOXAPARIN SODIUM INJ 40 MG/0.4 ML DISP.SYRIN SUBCUT SCH (12:35)
--- NOTE | 2017-04-21 14:38 | PDOC PROGRESS REPORT ---
Subjective Progress Note for:: 04/21/17 Reason For Visit: AFIB AND HEART RATE OF 120-155 No complaints Physical Exam Vital Signs: Temp Pulse Resp BP Pulse Ox 98.4 F 113 H 18 148/97 H 95 04/21/17 11:18 04/21/17 14:00 04/21/17 11:18 04/21/17 11:18 04/21/17 11:18 Intake & Output 04/20/17 04/21/17 04/22/17 06:59 06:59 06:59 Intake Total 1828 895 Output Total 2075 1500 Balance -247 -605 Weight 119.7 kg General appearance: PRESENT: no acute distress Musculoskeletal exam: PRESENT: other - Left lower extremity examined. Patient' s toenails are very long; patient has marked amount of exfoliating bulla mechanically debrided at bedside with 4 x 4's. There is an insignificant amount of necrotic tissue. There is marked edema. Results Laboratory Results: 04/18/17 10:03 04/19/17 17:40 Impressions: Head CT 04/14/17 07:24 IMPRESSION: NO ACUTE INTRACRANIAL IMAGING FINDINGS. EVIDENCE OF ACUTE STROKE: NO. Chest X-Ray 04/14/17 11:11 IMPRESSION: NO ACUTE RADIOGRAPHIC FINDING IN THE CHEST. NO SIGNIFICANT CHANGE FROM PRIOR STUDY. Tibia/Fibula X-Ray 04/14/17 13:12 IMPRESSION: NO RADIOGRAPHIC EVIDENCE OF ACUTE INJURY. Foot X-Ray 04/14/17 13:17 IMPRESSION: NEGATIVE STUDY OF THE LEFT FOOT. NO RADIOGRAPHIC EVIDENCE OF ACUTE INJURY. KUB X-Ray 04/15/17 00:00 IMPRESSION: Nonspecific gastric distention. [facility] [employer]- All Rights Reserved Venous Doppler Study 04/16/17 00:00 IMPRESSION: NO EVIDENCE OF DVT OR SVT IN THE LEFT LEG. Assessment & Plan - Diagnosis (1) Cellulitis of left leg without foot Is this a current diagnosis for this admission?: Yes Plan: Clinically improved; status post bedside debridement, well tolerated. Plan: 1. Recommended soapy water washes with scrub brush, rinse with saline, reapply to the, and Kerlix. 2. Leg elevation 3. Surgery will sign off; reconsult if needed
[2017-04-21] MEDS: METOPROLOL SUCCINATE 50 MG TAB.SR.24H PO SCH (17:00)
[2017-04-21 18:48] LABS: VANCOMYCIN,TROUGH 17.2 ug/mL (5.0-20.0)
--- NOTE | 2017-04-21 21:46 | PDOC PROGRESS REPORT ---
Subjective Progress Note for:: 04/21/17 Subjective:: Patient was seen by the bedside, he had excisional debridement of the left leg today by the surgeon. Reason For Visit: AFIB AND HEART RATE OF 120-155 Physical Exam Vital Signs: Temp Pulse Resp BP Pulse Ox 98.5 F 87 18 93/53 L 97 04/21/17 19:22 04/21/17 19:22 04/21/17 19:22 04/21/17 19:22 04/21/17 19:22 Intake & Output 04/20/17 04/21/17 04/22/17 06:59 06:59 06:59 Intake Total 8421 090 4202 Output Total 2075 1500 1100 Balance -247 -605 6 Weight 119.7 kg General appearance: PRESENT: no acute distress Head exam: PRESENT: atraumatic, normocephalic Eye exam: PRESENT: conjunctiva pink, EOMI, PERRLA Ear exam: PRESENT: normal external ear exam Mouth exam: PRESENT: moist, tongue midline Neck exam: PRESENT: full ROM Respiratory exam: PRESENT: clear to auscultation young Cardiovascular exam: PRESENT: RRR, +S1, +S2 Pulses: PRESENT: normal dorsalis pedis pul, +2 pedal pulses bilateral Vascular exam: PRESENT: normal capillary refill GI/Abdominal exam: PRESENT: normal bowel sounds, soft Rectal exam: PRESENT: deferred Neurological exam: PRESENT: alert, CN II-XII grossly intact. ABSENT: motor sensory deficit Psychiatric exam: PRESENT: appropriate affect, normal mood Skin exam: PRESENT: dry, intact, warm. ABSENT: cyanosis, rash Results Laboratory Results: 04/18/17 10:03 04/21/17 18:00 04/21/17 18:00 Creatinine 0.87 Est GFR ( Amer) > 60 Est GFR (Non-Af Amer) > 60 Impressions: Head CT 04/14/17 07:24 IMPRESSION: NO ACUTE INTRACRANIAL IMAGING FINDINGS. EVIDENCE OF ACUTE STROKE: NO. Chest X-Ray 04/14/17 11:11 IMPRESSION: NO ACUTE RADIOGRAPHIC FINDING IN THE CHEST. NO SIGNIFICANT CHANGE FROM PRIOR STUDY. Tibia/Fibula X-Ray 04/14/17 13:12 IMPRESSION: NO RADIOGRAPHIC EVIDENCE OF ACUTE INJURY. Foot X-Ray 04/14/17 13:17 IMPRESSION: NEGATIVE STUDY OF THE LEFT FOOT. NO RADIOGRAPHIC EVIDENCE OF ACUTE INJURY. KUB X-Ray 04/15/17 00:00 IMPRESSION: Nonspecific gastric distention. 2011 [employer]- All Rights Reserved Venous Doppler Study 04/16/17 00:00 IMPRESSION: NO EVIDENCE OF DVT OR SVT IN THE LEFT LEG. Assessment & Plan - Diagnosis (1) Cellulitis of left leg Is this a current diagnosis for this admission?: Yes Plan: Continue present treatment (2) Paroxysmal atrial fibrillation with rapid ventricular response Is this a current diagnosis for this admission?: Yes (3) Morbid obesity Is this a current diagnosis for this admission?: Yes
[2017-04-21] MEDS: NICOTINE 21 MG/24 HR PATCH.TD24 TD SCH (21:56)
[2017-04-21] MEDS: ATORVASTATIN CALCIUM 40 MG TABLET PO SCH (21:59)
[2017-04-21 22:15] LABS: HEMATOCRIT 29.1 % (37.9-51.0); HEMOGLOBIN 9.4 g/dL (13.5-17.0); MEAN CORPUSCULAR HEMOGLOBIN 29.4 pg (27.0-33.4); MEAN CORPUSCULAR HGB CONC 32.2 g/dL (32.0-36.0); MEAN CORPUSCULAR VOLUME 91 fl (80-97); PLATELET COUNT 529 10^3/uL (150-450); RED BLOOD COUNT 3.19 10^6/uL (4.35-5.55); RED CELL DISTRIBUTION WIDTH 16.2 % (11.5-14.0); WHITE BLOOD COUNT 16.5 10^3/uL (4.0-10.5)
[2017-04-21 22:32] LABS: ALANINE AMINOTRANSFERASE 44 U/L (21-72); ALBUMIN 2.4 g/dL (3.5-5.0); ALKALINE PHOSPHATASE 77 U/L (38-126); ANION GAP 9 (5-19); ASPARTATE AMINO TRANSFERASE 46 U/L (17-59); BILIRUBIN,DIRECT 0.1 mg/dL (0.0-0.4); BILIRUBIN,TOTAL 0.1 mg/dL (0.2-1.3); BLOOD UREA NITROGEN 13 mg/dL (7-20); CALCIUM 8.2 mg/dL (8.4-10.2); CARBON DIOXIDE 23 mmol/L (22-30); CHLORIDE 105 mmol/L (98-107); GLUCOSE 73 mg/dL (75-110); POTASSIUM 4.7 mmol/L (3.6-5.0); SODIUM 136.7 mmol/L (137-145); TOTAL PROTEIN 5.5 g/dL (6.3-8.2)
[2017-04-21 22:39] LABS: ABSOLUTE MONOCYTES # (MANUAL) 0.8 10^3/uL (0.1-1.4); ABSOLUTE NEUTROPHILS# (MANUAL) 14.5 10^3/uL (1.7-8.2); BASOPHILS % (MANUAL) 0 % (0-2); EOSINOPHILS % (MANUAL) 1 % (0-6); LYMPHOCYTES % (MANUAL) 6 % (13-45); METAMYELOCYTES % (MANUAL) 2 % (0); MONOCYTES % (MANUAL) 5 % (3-13); SEGMENTED NEUTROPHILS % (MAN) 86 % (42-78); TOTAL CELLS COUNTED 100
[2017-04-21 22:41] LABS: ANISOCYTOSIS 1+; HYPOCHROMASIA SLIGHT; PLATELET COMMENT INCREASED
[2017-04-22] MEDS: VANCOMYCIN HCL 1,000 MG in DEXTROSE 5%-WATER 250 ML IV SCH ×3 (05:58→17:20)
[2017-04-22] MEDS: CLINDAMYCIN 900 MG/D5W RTU 50 ML IV SCH ×3 (06:01→21:49)
[2017-04-22] MEDS: LANSOPRAZOLE 30 MG TAB.RAP.DR PO SCH (06:01)
[2017-04-22 06:20] LABS: ALANINE AMINOTRANSFERASE 40 U/L (21-72); ALBUMIN 2.3 g/dL (3.5-5.0); ALKALINE PHOSPHATASE 72 U/L (38-126); ANION GAP 8 (5-19); ASPARTATE AMINO TRANSFERASE 41 U/L (17-59); BILIRUBIN,DIRECT 0.1 mg/dL (0.0-0.4); BILIRUBIN,TOTAL 0.1 mg/dL (0.2-1.3); BLOOD UREA NITROGEN 15 mg/dL (7-20); CALCIUM 7.7 mg/dL (8.4-10.2); CARBON DIOXIDE 22 mmol/L (22-30); CHLORIDE 107 mmol/L (98-107); GLUCOSE 75 mg/dL (75-110); POTASSIUM 4.6 mmol/L (3.6-5.0); SODIUM 136.7 mmol/L (137-145); TOTAL PROTEIN 5.3 g/dL (6.3-8.2)
[2017-04-22 06:36] LABS: ABSOLUTE BASOPHILS # (AUTO) 0.1 10^3/uL (0.0-0.2); ABSOLUTE EOSINOPHILS # (AUTO) 0.1 10^3/uL (0.0-0.6); ABSOLUTE LYMPHOCYTES (AUTO) 1.5 10^3/uL (0.5-4.7); ABSOLUTE MONOCYTES (AUTO) 1.1 10^3/uL (0.1-1.4); ABSOLUTE NEUT (AUTO) 12.1 10^3/uL (1.7-8.2); BASOPHILS % (AUTO) 0.6 % (0-2); EOSINOPHILS % (AUTO) 0.4 % (0-6); HEMATOCRIT 25.8 % (37.9-51.0); HEMOGLOBIN 8.5 g/dL (13.5-17.0); LYMPHOCYTES % (AUTO) 10.3 % (13-45); MEAN CORPUSCULAR HEMOGLOBIN 29.8 pg (27.0-33.4); MEAN CORPUSCULAR HGB CONC 32.8 g/dL (32.0-36.0); MEAN CORPUSCULAR VOLUME 91 fl (80-97); MONOCYTES % (AUTO) 7.6 % (3-13); PLATELET COUNT 487 10^3/uL (150-450); RED BLOOD COUNT 2.83 10^6/uL (4.35-5.55); RED CELL DISTRIBUTION WIDTH 15.9 % (11.5-14.0); SEGMENTED NEUTROPHILS % (AUTO) 81.1 % (42-78); TOTAL CELLS COUNTED % (AUTO) 100 %
[2017-04-22] MEDS: DIVALPROEX SODIUM 500 MG TAB.SR.24H PO SCH ×2 (08:52→21:49)
[2017-04-22] MEDS: TAMSULOSIN HCL 0.4 MG CAP.SR.24H PO SCH (08:52)
[2017-04-22] MEDS: METFORMIN HCL 500 MG TABLET PO SCH ×2 (08:53→17:19)
[2017-04-22] MEDS: BUPROPION HCL 75 MG TABLET PO SCH (08:53)
[2017-04-22] MEDS: BENZTROPINE MESYLATE 1 MG TABLET PO SCH ×2 (08:54→17:18)
[2017-04-22] MEDS: OLANZAPINE 5 MG TAB.RAPDIS SL SCH ×2 (08:54→21:48)
[2017-04-22] MEDS: LUBIPROSTONE 24 MCG CAPSULE PO SCH ×2 (08:55→17:19)
[2017-04-22] MEDS: PSYLLIUM SEED-SF 5.85 GM PACKET PO SCH ×2 (08:56→17:18)
[2017-04-22] MEDS: POLYVINYL ALCOHOL 1.4% OPH SOLN 15 ML OU SCH ×4 (08:58→22:08)
[2017-04-22] MEDS: SILVER SULFADIAZINE 1% CREAM 400 GM TP SCH ×2 (08:58→17:20)
[2017-04-22] MEDS: ENOXAPARIN SODIUM INJ 40 MG/0.4 ML DISP.SYRIN SUBCUT SCH (08:59)
[2017-04-22] MEDS: POTASSIUM CHLORIDE 10 MEQ TABLET.SA PO SCH (09:01)
[2017-04-22] MEDS: OXYCODONE-ACETAMINOPHEN 5-325 MG TABLET PO PRN ×2 (13:25→20:15)
--- NOTE | 2017-04-22 14:28 | XCELERA REPORT ---
[address] [address] Lower Extremity Arterial Evaluation Name: KATHLEEN HARRSION Age: 61 yrs Gender: Male : 1955 Patient Status: Inpatient Patient Location: [address] [place] [address] Study Date: 04/22/2017 11:18 AM Procedure: A color flow and duplex scan of the lower extremity arteries was performed bilaterally with velocity and waveform anaylsis. 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 0 % stenosis . Ankle Brachial index not obtainable due to bandaging. Left Side Arterial Evaluation Normal velocity and triphasic waveforms noted from the Common Femoral artery to the Anterior Tibial artery 0-19 % stenosis at the Deep Femoral and Dorsalis Pedis arteries. Ankle Brachial index not obtainable due to open wounds. Interpretation Summary Mild hemodynamically significant lesions in the bilateral lower extremities, on duplex imaging, at rest. : VICKI JARVIS > Francisco Rogers
[2017-04-22] MEDS: METOPROLOL SUCCINATE 50 MG TAB.SR.24H PO SCH (17:19)
--- NOTE | 2017-04-22 20:41 | PDOC PROGRESS REPORT ---
Subjective Progress Note for:: 04/22/17 Subjective:: Patient is seen by the bedside no new complaints Reason For Visit: AFIB AND HEART RATE OF 120-155 Physical Exam Vital Signs: Temp Pulse Resp BP Pulse Ox 98.5 F 83 20 104/45 L 94 04/22/17 19:09 04/22/17 19:09 04/22/17 19:09 04/22/17 19:09 04/22/17 19:09 Intake & Output 04/21/17 04/22/17 04/23/17 06:59 06:59 06:59 Intake Total 895 3986 1426 Output Total 1500 1600 900 Balance -605 2386 526 Weight 118.9 kg General appearance: PRESENT: no acute distress Eye exam: PRESENT: PERRLA Respiratory exam: PRESENT: clear to auscultation young Cardiovascular exam: PRESENT: +S1, +S2 Neurological exam: PRESENT: alert Results Laboratory Results: 04/22/17 05:16 04/22/17 05:16 04/21/17 04/21/17 04/22/17 22:06 22:06 05:16 WBC 16.5 H 15.0 H RBC 3.19 L 2.83 L Hgb 9.4 L 8.5 L Hct 29.1 L 25.8 L MCV 91 91 MCH 29.4 29.8 MCHC 32.2 32.8 RDW 16.2 H 15.9 H Plt Count 529 H 487 H Seg Neutrophils % Not Reportable 81.1 H Lymphocytes % Not Reportable 10.3 L Monocytes % Not Reportable 7.6 Eosinophils % Not Reportable 0.4 Basophils % Not Reportable 0.6 Absolute Neutrophils Not Reportable 12.1 H Absolute Lymphocytes Not Reportable 1.5 Absolute Monocytes Not Reportable 1.1 Absolute Eosinophils Not Reportable 0.1 Absolute Basophils Not Reportable 0.1 Sodium 136.7 L Potassium 4.7 Chloride 105 Carbon Dioxide 23 Anion Gap 9 BUN 13 Creatinine 0.86 Est GFR ( Amer) > 60 Est GFR (Non-Af Amer) > 60 Glucose 73 L Calcium 8.2 L Total Bilirubin 0.1 L AST 46 ALT 44 Alkaline Phosphatase 77 Total Protein 5.5 L Albumin 2.4 L 04/22/17 05:16 WBC RBC Hgb Hct MCV MCH MCHC RDW Plt Count Seg Neutrophils % Lymphocytes % Monocytes % Eosinophils % Basophils % Absolute Neutrophils Absolute Lymphocytes Absolute Monocytes Absolute Eosinophils Absolute Basophils Sodium 136.7 L Potassium 4.6 Chloride 107 Carbon Dioxide 22 Anion Gap 8 BUN 15 Creatinine 0.90 Est GFR ( Amer) > 60 Est GFR (Non-Af Amer) > 60 Glucose 75 Calcium 7.7 L Total Bilirubin 0.1 L AST 41 ALT 40 Alkaline Phosphatase 72 Total Protein 5.3 L Albumin 2.3 L Impressions: Head CT 04/14/17 07:24 IMPRESSION: NO ACUTE INTRACRANIAL IMAGING FINDINGS. EVIDENCE OF ACUTE STROKE: NO. Chest X-Ray 04/14/17 11:11 IMPRESSION: NO ACUTE RADIOGRAPHIC FINDING IN THE CHEST. NO SIGNIFICANT CHANGE FROM PRIOR STUDY. Tibia/Fibula X-Ray 04/14/17 13:12 IMPRESSION: NO RADIOGRAPHIC EVIDENCE OF ACUTE INJURY. Foot X-Ray 04/14/17 13:17 IMPRESSION: NEGATIVE STUDY OF THE LEFT FOOT. NO RADIOGRAPHIC EVIDENCE OF ACUTE INJURY. KUB X-Ray 04/15/17 00:00 IMPRESSION: Nonspecific gastric distention. [facility] [employer]- All Rights Reserved Venous Doppler Study 04/16/17 00:00 IMPRESSION: NO EVIDENCE OF DVT OR SVT IN THE LEFT LEG. Assessment & Plan - Diagnosis (1) Cellulitis of left leg Is this a current diagnosis for this admission?: Yes (2) Paroxysmal atrial fibrillation with rapid ventricular response Is this a current diagnosis for this admission?: Yes (3) Morbid obesity Is this a current diagnosis for this admission?: Yes
[2017-04-22] MEDS: NICOTINE 21 MG/24 HR PATCH.TD24 TD SCH (21:49)
[2017-04-22] MEDS: ATORVASTATIN CALCIUM 40 MG TABLET PO SCH (21:49)
[2017-04-23] MEDS: VANCOMYCIN HCL 1,000 MG in DEXTROSE 5%-WATER 250 ML IV SCH ×3 (01:55→17:38)
[2017-04-23] MEDS: CLINDAMYCIN 900 MG/D5W RTU 50 ML IV SCH ×2 (06:32→13:45)
[2017-04-23] MEDS: LANSOPRAZOLE 30 MG TAB.RAP.DR PO SCH (06:32)
[2017-04-23] MEDS: OLANZAPINE 5 MG TAB.RAPDIS SL SCH ×2 (09:48→21:15)
[2017-04-23] MEDS: ENOXAPARIN SODIUM INJ 40 MG/0.4 ML DISP.SYRIN SUBCUT SCH (09:48)
[2017-04-23] MEDS: METFORMIN HCL 500 MG TABLET PO SCH ×2 (09:50→17:38)
[2017-04-23] MEDS: TAMSULOSIN HCL 0.4 MG CAP.SR.24H PO SCH (09:51)
[2017-04-23] MEDS: BENZTROPINE MESYLATE 1 MG TABLET PO SCH ×2 (09:51→17:35)
[2017-04-23] MEDS: LUBIPROSTONE 24 MCG CAPSULE PO SCH ×2 (09:51→17:35)
[2017-04-23] MEDS: OXYCODONE-ACETAMINOPHEN 5-325 MG TABLET PO PRN ×2 (09:52→17:36)
[2017-04-23] MEDS: DIVALPROEX SODIUM 500 MG TAB.SR.24H PO SCH ×2 (09:52→21:16)
[2017-04-23] MEDS: BUPROPION HCL 75 MG TABLET PO SCH (09:52)
[2017-04-23] MEDS: PSYLLIUM SEED-SF 5.85 GM PACKET PO SCH ×2 (09:53→17:38)
[2017-04-23] MEDS: SILVER SULFADIAZINE 1% CREAM 400 GM TP SCH ×2 (11:15→21:17)
[2017-04-23] MEDS: POLYVINYL ALCOHOL 1.4% OPH SOLN 15 ML OU SCH ×4 (11:16→21:17)
[2017-04-23] MEDS: POTASSIUM CHLORIDE 10 MEQ TABLET.SA PO SCH (13:44)
[2017-04-23] MEDS: METOPROLOL SUCCINATE 50 MG TAB.SR.24H PO SCH (17:36)
--- NOTE | 2017-04-23 20:54 | PDOC PROGRESS REPORT ---
Subjective Progress Note for:: 04/23/17 Subjective:: Patient was seen by the bedside, he presented with severe cellulitis of the left leg, he was seen by the surgeon, he underwent excisional debridement of the left leg couples of days ago, today is the first time I will see a decrease in the swelling of the leg showing some response to treatment presently on dual antibiotic vancomycin and clindamycin, he will continue same treatment Reason For Visit: AFIB AND HEART RATE OF 120-155 Physical Exam Vital Signs: Temp Pulse Resp BP Pulse Ox 99.1 F 78 18 114/57 L 93 04/23/17 16:07 04/23/17 16:07 04/23/17 16:07 04/23/17 16:07 04/23/17 16:07 Intake & Output 04/22/17 04/23/17 04/24/17 06:59 06:59 06:59 Intake Total 3986 2276 1023 Output Total 1600 2100 875 Balance 2386 176 148 Weight 118.9 kg 117.5 kg General appearance: PRESENT: no acute distress Eye exam: PRESENT: PERRLA Respiratory exam: PRESENT: chest wall tenderness Cardiovascular exam: PRESENT: +S1, +S2 GI/Abdominal exam: PRESENT: soft Extremities exam: PRESENT: other - Swelling ,redness ,excoriation of the lower left leg Results Laboratory Results: 04/22/17 05:16 04/22/17 05:16 Impressions: Head CT 04/14/17 07:24 IMPRESSION: NO ACUTE INTRACRANIAL IMAGING FINDINGS. EVIDENCE OF ACUTE STROKE: NO. Chest X-Ray 04/14/17 11:11 IMPRESSION: NO ACUTE RADIOGRAPHIC FINDING IN THE CHEST. NO SIGNIFICANT CHANGE FROM PRIOR STUDY. Tibia/Fibula X-Ray 04/14/17 13:12 IMPRESSION: NO RADIOGRAPHIC EVIDENCE OF ACUTE INJURY. Foot X-Ray 04/14/17 13:17 IMPRESSION: NEGATIVE STUDY OF THE LEFT FOOT. NO RADIOGRAPHIC EVIDENCE OF ACUTE INJURY. KUB X-Ray 04/15/17 00:00 IMPRESSION: Nonspecific gastric distention. 2011 [employer]- All Rights Reserved Venous Doppler Study 04/16/17 00:00 IMPRESSION: NO EVIDENCE OF DVT OR SVT IN THE LEFT LEG. Assessment & Plan - Diagnosis (1) Cellulitis of left leg Is this a current diagnosis for this admission?: Yes Plan: Continue IV antibiotic (2) Paroxysmal atrial fibrillation with rapid ventricular response Is this a current diagnosis for this admission?: Yes (3) Morbid obesity Is this a current diagnosis for this admission?: Yes
[2017-04-23] MEDS: NICOTINE 21 MG/24 HR PATCH.TD24 TD SCH (21:15)
[2017-04-23] MEDS: ATORVASTATIN CALCIUM 40 MG TABLET PO SCH (21:16)
[2017-04-24] MEDS: VANCOMYCIN HCL 1,000 MG in DEXTROSE 5%-WATER 250 ML IV SCH (02:40)
[2017-04-24] MEDS: OXYCODONE-ACETAMINOPHEN 5-325 MG TABLET PO PRN ×3 (06:05→18:24)
[2017-04-24] MEDS: LANSOPRAZOLE 30 MG TAB.RAP.DR PO SCH (06:05)
[2017-04-24] MEDS: ENOXAPARIN SODIUM INJ 40 MG/0.4 ML DISP.SYRIN SUBCUT SCH (09:42)
[2017-04-24] MEDS: PSYLLIUM SEED-SF 5.85 GM PACKET PO SCH ×2 (09:42→18:25)
[2017-04-24] MEDS: METFORMIN HCL 500 MG TABLET PO SCH ×2 (09:42→18:23)
[2017-04-24] MEDS: OLANZAPINE 5 MG TAB.RAPDIS SL SCH ×2 (09:43→21:11)
[2017-04-24] MEDS: LUBIPROSTONE 24 MCG CAPSULE PO SCH ×2 (09:44→18:22)
[2017-04-24] MEDS: BENZTROPINE MESYLATE 1 MG TABLET PO SCH ×2 (09:45→18:22)
[2017-04-24] MEDS: DIVALPROEX SODIUM 500 MG TAB.SR.24H PO SCH ×2 (09:45→21:38)
[2017-04-24] MEDS: TAMSULOSIN HCL 0.4 MG CAP.SR.24H PO SCH (09:45)
[2017-04-24] MEDS: BUPROPION HCL 75 MG TABLET PO SCH (09:46)
[2017-04-24] MEDS: POLYVINYL ALCOHOL 1.4% OPH SOLN 15 ML OU SCH ×4 (09:46→21:38)
[2017-04-24] MEDS: CLINDAMYCIN HCL 150 MG CAPSULE PO SCH ×3 (12:31→23:47)
[2017-04-24] MEDS: POTASSIUM CHLORIDE 10 MEQ TABLET.SA PO SCH (12:31)
[2017-04-24] MEDS: SILVER SULFADIAZINE 1% CREAM 400 GM TP SCH ×2 (13:43→21:43)
[2017-04-24] MEDS: METOPROLOL SUCCINATE 50 MG TAB.SR.24H PO SCH (18:24)
[2017-04-24] MEDS: ATORVASTATIN CALCIUM 40 MG TABLET PO SCH (21:38)
[2017-04-24] MEDS: NICOTINE 21 MG/24 HR PATCH.TD24 TD SCH (21:38)
--- NOTE | 2017-04-24 22:29 | PDOC PROGRESS REPORT ---
Subjective Progress Note for:: 04/24/17 Subjective:: Patient seen by the bedside, he has no IV access, presently on p.o. antibiotic Reason For Visit: AFIB AND HEART RATE OF 120-155 Physical Exam Vital Signs: Temp Pulse Resp BP Pulse Ox 98.4 F 75 17 120/60 97 04/24/17 19:16 04/24/17 19:16 04/24/17 19:16 04/24/17 19:16 04/24/17 19:16 Intake & Output 04/23/17 04/24/17 04/25/17 06:59 06:59 06:59 Intake Total 2276 1593 400 Output Total 2100 1675 375 Balance 176 -82 25 Weight 117.5 kg 119.7 kg 119.7 kg General appearance: PRESENT: no acute distress Eye exam: PRESENT: PERRLA Respiratory exam: PRESENT: clear to auscultation young Cardiovascular exam: PRESENT: +S1, +S2 GI/Abdominal exam: PRESENT: soft Neurological exam: PRESENT: alert Results Laboratory Results: 04/22/17 05:16 04/22/17 05:16 Impressions: Head CT 04/14/17 07:24 IMPRESSION: NO ACUTE INTRACRANIAL IMAGING FINDINGS. EVIDENCE OF ACUTE STROKE: NO. Chest X-Ray 04/14/17 11:11 IMPRESSION: NO ACUTE RADIOGRAPHIC FINDING IN THE CHEST. NO SIGNIFICANT CHANGE FROM PRIOR STUDY. Tibia/Fibula X-Ray 04/14/17 13:12 IMPRESSION: NO RADIOGRAPHIC EVIDENCE OF ACUTE INJURY. Foot X-Ray 04/14/17 13:17 IMPRESSION: NEGATIVE STUDY OF THE LEFT FOOT. NO RADIOGRAPHIC EVIDENCE OF ACUTE INJURY. KUB X-Ray 04/15/17 00:00 IMPRESSION: Nonspecific gastric distention. 2011 [employer]- All Rights Reserved Venous Doppler Study 04/16/17 00:00 IMPRESSION: NO EVIDENCE OF DVT OR SVT IN THE LEFT LEG. Assessment & Plan - Diagnosis (1) Cellulitis of left leg Is this a current diagnosis for this admission?: Yes (2) Paroxysmal atrial fibrillation with rapid ventricular response Is this a current diagnosis for this admission?: Yes (3) Morbid obesity Is this a current diagnosis for this admission?: Yes - Plan Summary Plan Summary: Continue treatment
[2017-04-25] MEDS: CLINDAMYCIN HCL 150 MG CAPSULE PO SCH ×3 (06:09→18:55)
[2017-04-25] MEDS: LANSOPRAZOLE 30 MG TAB.RAP.DR PO SCH (06:09)
[2017-04-25] MEDS: OXYCODONE-ACETAMINOPHEN 5-325 MG TABLET PO PRN ×3 (06:10→18:56)
[2017-04-25] MEDS: OLANZAPINE 5 MG TAB.RAPDIS SL SCH ×2 (08:47→21:41)
[2017-04-25] MEDS: METFORMIN HCL 500 MG TABLET PO SCH ×2 (08:47→18:54)
[2017-04-25] MEDS: BENZTROPINE MESYLATE 1 MG TABLET PO SCH ×2 (08:47→18:54)
[2017-04-25] MEDS: DIVALPROEX SODIUM 500 MG TAB.SR.24H PO SCH ×2 (08:48→22:27)
[2017-04-25] MEDS: BUPROPION HCL 75 MG TABLET PO SCH (08:48)
[2017-04-25] MEDS: TAMSULOSIN HCL 0.4 MG CAP.SR.24H PO SCH (08:48)
[2017-04-25] MEDS: SILVER SULFADIAZINE 1% CREAM 400 GM TP SCH ×2 (08:49→19:01)
[2017-04-25] MEDS: PSYLLIUM SEED-SF 5.85 GM PACKET PO SCH ×2 (08:50→19:02)
[2017-04-25] MEDS: LUBIPROSTONE 24 MCG CAPSULE PO SCH ×2 (08:50→18:59)
[2017-04-25] MEDS: ENOXAPARIN SODIUM INJ 40 MG/0.4 ML DISP.SYRIN SUBCUT SCH (08:51)
[2017-04-25] MEDS: POLYVINYL ALCOHOL 1.4% OPH SOLN 15 ML OU SCH ×4 (08:52→22:28)
[2017-04-25] MEDS: POTASSIUM CHLORIDE 10 MEQ TABLET.SA PO SCH (12:21)
[2017-04-25] MEDS: METOPROLOL SUCCINATE 50 MG TAB.SR.24H PO SCH (18:57)
[2017-04-25] MEDS: NICOTINE 21 MG/24 HR PATCH.TD24 TD SCH (22:27)
[2017-04-25] MEDS: ATORVASTATIN CALCIUM 40 MG TABLET PO SCH (22:28)
--- NOTE | 2017-04-25 23:43 | PDOC PROGRESS REPORT ---
Subjective Progress Note for:: 04/25/17 Subjective:: Patient seen by the bedside still of severe cellulitis but improving now down graded to the floor Reason For Visit: AFIB AND HEART RATE OF 120-155 Physical Exam Vital Signs: Temp Pulse Resp BP Pulse Ox 98.0 F 83 16 130/58 H 94 04/25/17 23:11 04/25/17 23:11 04/25/17 23:11 04/25/17 23:11 04/25/17 23:11 Intake & Output 04/24/17 04/25/17 04/26/17 06:59 06:59 06:59 Intake Total 1593 718 709 Output Total 1675 9156 1650 Balance -82 -607 -941 Weight 119.7 kg 119.7 kg General appearance: PRESENT: no acute distress Eye exam: PRESENT: PERRLA Respiratory exam: PRESENT: clear to auscultation young Cardiovascular exam: PRESENT: +S1, +S2 GI/Abdominal exam: PRESENT: soft Extremities exam: PRESENT: other - Cellulitis of the left leg Neurological exam: PRESENT: alert Results Laboratory Results: 04/22/17 05:16 04/22/17 05:16 Impressions: Head CT 04/14/17 07:24 IMPRESSION: NO ACUTE INTRACRANIAL IMAGING FINDINGS. EVIDENCE OF ACUTE STROKE: NO. Chest X-Ray 04/14/17 11:11 IMPRESSION: NO ACUTE RADIOGRAPHIC FINDING IN THE CHEST. NO SIGNIFICANT CHANGE FROM PRIOR STUDY. Tibia/Fibula X-Ray 04/14/17 13:12 IMPRESSION: NO RADIOGRAPHIC EVIDENCE OF ACUTE INJURY. Foot X-Ray 04/14/17 13:17 IMPRESSION: NEGATIVE STUDY OF THE LEFT FOOT. NO RADIOGRAPHIC EVIDENCE OF ACUTE INJURY. KUB X-Ray 04/15/17 00:00 IMPRESSION: Nonspecific gastric distention. 2011 [employer]- All Rights Reserved Venous Doppler Study 04/16/17 00:00 IMPRESSION: NO EVIDENCE OF DVT OR SVT IN THE LEFT LEG. Assessment & Plan - Diagnosis (1) Cellulitis of left leg Is this a current diagnosis for this admission?: Yes (2) Paroxysmal atrial fibrillation with rapid ventricular response Is this a current diagnosis for this admission?: Yes (3) Morbid obesity Is this a current diagnosis for this admission?: Yes
[2017-04-26] MEDS: CLINDAMYCIN HCL 150 MG CAPSULE PO SCH ×5 (00:33→23:15)
[2017-04-26] MEDS: OXYCODONE-ACETAMINOPHEN 5-325 MG TABLET PO PRN ×4 (00:34→22:43)
[2017-04-26] MEDS: LANSOPRAZOLE 30 MG TAB.RAP.DR PO SCH (06:30)
[2017-04-26] MEDS: SILVER SULFADIAZINE 1% CREAM 400 GM TP SCH ×2 (10:12→17:28)
[2017-04-26] MEDS: METFORMIN HCL 500 MG TABLET PO SCH ×2 (10:12→17:28)
[2017-04-26] MEDS: ENOXAPARIN SODIUM INJ 40 MG/0.4 ML DISP.SYRIN SUBCUT SCH (10:18)
[2017-04-26] MEDS: TAMSULOSIN HCL 0.4 MG CAP.SR.24H PO SCH (10:19)
[2017-04-26] MEDS: DIVALPROEX SODIUM 500 MG TAB.SR.24H PO SCH ×2 (10:19→22:36)
[2017-04-26] MEDS: BUPROPION HCL 75 MG TABLET PO SCH (10:19)
[2017-04-26] MEDS: PSYLLIUM SEED-SF 5.85 GM PACKET PO SCH ×2 (10:19→17:27)
[2017-04-26] MEDS: LUBIPROSTONE 24 MCG CAPSULE PO SCH ×2 (10:19→17:27)
[2017-04-26] MEDS: BENZTROPINE MESYLATE 1 MG TABLET PO SCH ×2 (10:19→17:28)
[2017-04-26] MEDS: OLANZAPINE 5 MG TAB.RAPDIS SL SCH ×2 (13:51→22:38)
[2017-04-26] MEDS: POTASSIUM CHLORIDE 10 MEQ TABLET.SA PO SCH (13:51)
[2017-04-26] MEDS: POLYVINYL ALCOHOL 1.4% OPH SOLN 15 ML OU SCH ×4 (13:54→22:47)
--- NOTE | 2017-04-26 16:37 | PDOC PROGRESS REPORT ---
Subjective Progress Note for:: 04/26/17 Subjective:: Patient was seen by the bedside, no new complaints Reason For Visit: AFIB AND HEART RATE OF 120-155 Physical Exam Vital Signs: Temp Pulse Resp BP Pulse Ox 98.8 F 71 16 119/53 L 93 04/26/17 04:00 04/26/17 14:00 04/26/17 04:00 04/26/17 04:00 04/26/17 04:00 Intake & Output 04/25/17 04/26/17 04/27/17 06:59 06:59 06:59 Intake Total 718 949 Output Total 1325 2250 Balance -607 -1301 Weight 119.7 kg General appearance: PRESENT: no acute distress Eye exam: PRESENT: PERRLA Respiratory exam: PRESENT: clear to auscultation young Cardiovascular exam: PRESENT: +S1, +S2 GI/Abdominal exam: PRESENT: soft Extremities exam: PRESENT: other - erythema of the left leg Neurological exam: PRESENT: alert Results Laboratory Results: 04/22/17 05:16 04/22/17 05:16 Impressions: Head CT 04/14/17 07:24 IMPRESSION: NO ACUTE INTRACRANIAL IMAGING FINDINGS. EVIDENCE OF ACUTE STROKE: NO. Chest X-Ray 04/14/17 11:11 IMPRESSION: NO ACUTE RADIOGRAPHIC FINDING IN THE CHEST. NO SIGNIFICANT CHANGE FROM PRIOR STUDY. Tibia/Fibula X-Ray 04/14/17 13:12 IMPRESSION: NO RADIOGRAPHIC EVIDENCE OF ACUTE INJURY. Foot X-Ray 04/14/17 13:17 IMPRESSION: NEGATIVE STUDY OF THE LEFT FOOT. NO RADIOGRAPHIC EVIDENCE OF ACUTE INJURY. KUB X-Ray 04/15/17 00:00 IMPRESSION: Nonspecific gastric distention. 2011 [employer]- All Rights Reserved Venous Doppler Study 04/16/17 00:00 IMPRESSION: NO EVIDENCE OF DVT OR SVT IN THE LEFT LEG. Assessment & Plan - Diagnosis (1) Cellulitis of left leg Is this a current diagnosis for this admission?: Yes (2) Paroxysmal atrial fibrillation with rapid ventricular response Is this a current diagnosis for this admission?: Yes (3) Morbid obesity Is this a current diagnosis for this admission?: Yes
[2017-04-26] MEDS: METOPROLOL SUCCINATE 50 MG TAB.SR.24H PO SCH (17:28)
[2017-04-26] MEDS: NICOTINE 21 MG/24 HR PATCH.TD24 TD SCH (22:38)
[2017-04-26] MEDS: ATORVASTATIN CALCIUM 40 MG TABLET PO SCH (22:38)
[2017-04-27] MEDS: CLINDAMYCIN HCL 150 MG CAPSULE PO SCH ×3 (05:07→17:47)
[2017-04-27] MEDS: OXYCODONE-ACETAMINOPHEN 5-325 MG TABLET PO PRN ×3 (05:08→18:17)
[2017-04-27] MEDS: LANSOPRAZOLE 30 MG TAB.RAP.DR PO SCH (05:08)
[2017-04-27] MEDS: METFORMIN HCL 500 MG TABLET PO SCH ×2 (07:47→17:47)
[2017-04-27] MEDS: ENOXAPARIN SODIUM INJ 40 MG/0.4 ML DISP.SYRIN SUBCUT SCH (10:01)
[2017-04-27] MEDS: POLYVINYL ALCOHOL 1.4% OPH SOLN 15 ML OU SCH ×4 (10:01→21:46)
[2017-04-27] MEDS: TAMSULOSIN HCL 0.4 MG CAP.SR.24H PO SCH (10:01)
[2017-04-27] MEDS: BENZTROPINE MESYLATE 1 MG TABLET PO SCH ×2 (10:02→17:46)
[2017-04-27] MEDS: DIVALPROEX SODIUM 500 MG TAB.SR.24H PO SCH ×2 (10:02→21:45)
[2017-04-27] MEDS: LUBIPROSTONE 24 MCG CAPSULE PO SCH ×2 (10:02→17:46)
[2017-04-27] MEDS: SENNOSIDES/DOCUSATE 8.6-50 MG 1 EACH TABLET PO PRN (10:02)
[2017-04-27] MEDS: BUPROPION HCL 75 MG TABLET PO SCH (10:02)
[2017-04-27] MEDS: OLANZAPINE 5 MG TAB.RAPDIS SL SCH ×2 (10:02→21:46)
[2017-04-27] MEDS: SILVER SULFADIAZINE 1% CREAM 400 GM TP SCH ×2 (10:03→17:47)
[2017-04-27] MEDS: PSYLLIUM SEED-SF 5.85 GM PACKET PO SCH ×2 (10:03→17:47)
[2017-04-27] MEDS: POTASSIUM CHLORIDE 10 MEQ TABLET.SA PO SCH (12:30)
[2017-04-27 15:39] LABS: ABSOLUTE BASOPHILS # (AUTO) 0.2 10^3/uL (0.0-0.2); ABSOLUTE LYMPHOCYTES (AUTO) 1.1 10^3/uL (0.5-4.7); ABSOLUTE MONOCYTES (AUTO) 0.6 10^3/uL (0.1-1.4); ABSOLUTE NEUT (AUTO) 9.2 10^3/uL (1.7-8.2); BASOPHILS % (AUTO) 1.9 % (0-2); EOSINOPHILS % (AUTO) 0.1 % (0-6); HEMATOCRIT 27.3 % (37.9-51.0); LYMPHOCYTES % (AUTO) 9.8 % (13-45); MEAN CORPUSCULAR HEMOGLOBIN 29.5 pg (27.0-33.4); MEAN CORPUSCULAR VOLUME 89 fl (80-97); MONOCYTES % (AUTO) 5.6 % (3-13); PLATELET COUNT 443 10^3/uL (150-450); RED BLOOD COUNT 3.06 10^6/uL (4.35-5.55); RED CELL DISTRIBUTION WIDTH 15.5 % (11.5-14.0); SEGMENTED NEUTROPHILS % (AUTO) 82.6 % (42-78); TOTAL CELLS COUNTED % (AUTO) 100 %; WHITE BLOOD COUNT 11.2 10^3/uL (4.0-10.5)
[2017-04-27 16:00] LABS: ALANINE AMINOTRANSFERASE 28 U/L (21-72); ALBUMIN 2.6 g/dL (3.5-5.0); ALKALINE PHOSPHATASE 57 U/L (38-126); ANION GAP 7 (5-19); ASPARTATE AMINO TRANSFERASE 18 U/L (17-59); BILIRUBIN,DIRECT 0.2 mg/dL (0.0-0.4); BILIRUBIN,TOTAL 0.3 mg/dL (0.2-1.3); BLOOD UREA NITROGEN 11 mg/dL (7-20); CARBON DIOXIDE 26 mmol/L (22-30); CHLORIDE 106 mmol/L (98-107); GLUCOSE 82 mg/dL (75-110); POTASSIUM 4.1 mmol/L (3.6-5.0); SODIUM 139.4 mmol/L (137-145); TOTAL PROTEIN 6.1 g/dL (6.3-8.2)
[2017-04-27] MEDS: METOPROLOL SUCCINATE 50 MG TAB.SR.24H PO SCH (17:45)
--- NOTE | 2017-04-27 17:59 | PDOC PROGRESS REPORT ---
Subjective Progress Note for:: 04/27/17 Subjective:: Patient was seen by the bedside, no new complaints Reason For Visit: AFIB AND HEART RATE OF 120-155 Physical Exam Vital Signs: Temp Pulse Resp BP Pulse Ox 98.1 F 90 19 109/55 L 91 L 04/27/17 16:08 04/27/17 16:08 04/27/17 16:08 04/27/17 16:08 04/27/17 16:08 Intake & Output 04/26/17 04/27/17 04/28/17 06:59 06:59 06:59 Intake Total 949 1002 680 Output Total 2250 1750 1400 Balance -1301 -748 -720 General appearance: PRESENT: no acute distress, well-developed, well-nourished Head exam: PRESENT: atraumatic, normocephalic Eye exam: PRESENT: conjunctiva pink, EOMI, PERRLA Mouth exam: PRESENT: moist, tongue midline Neck exam: PRESENT: full ROM Respiratory exam: PRESENT: clear to auscultation young Cardiovascular exam: PRESENT: RRR, +S1, +S2 Murmur grade: 3 Pulses: PRESENT: normal dorsalis pedis pul, +2 pedal pulses bilateral Vascular exam: PRESENT: normal capillary refill GI/Abdominal exam: PRESENT: normal bowel sounds, soft. ABSENT: distended, guarding, mass, organolmegaly, rebound, tenderness Rectal exam: PRESENT: deferred Neurological exam: PRESENT: alert Psychiatric exam: PRESENT: appropriate affect, normal mood Skin exam: PRESENT: dry, intact, warm. ABSENT: cyanosis, rash Results Laboratory Results: 04/27/17 15:25 04/27/17 15:25 04/27/17 04/27/17 15:25 15:25 WBC 11.2 H RBC 3.06 L Hgb 9.0 L Hct 27.3 L MCV 89 MCH 29.5 MCHC 33.0 RDW 15.5 H Plt Count 443 Seg Neutrophils % 82.6 H Lymphocytes % 9.8 L Monocytes % 5.6 Eosinophils % 0.1 Basophils % 1.9 Absolute Neutrophils 9.2 H Absolute Lymphocytes 1.1 Absolute Monocytes 0.6 Absolute Eosinophils 0.0 Absolute Basophils 0.2 Sodium 139.4 Potassium 4.1 Chloride 106 Carbon Dioxide 26 Anion Gap 7 BUN 11 Creatinine 0.87 Est GFR ( Amer) > 60 Est GFR (Non-Af Amer) > 60 Glucose 82 Calcium 9.0 Total Bilirubin 0.3 AST 18 ALT 28 Alkaline Phosphatase 57 Total Protein 6.1 L Albumin 2.6 L Impressions: Head CT 04/14/17 07:24 IMPRESSION: NO ACUTE INTRACRANIAL IMAGING FINDINGS. EVIDENCE OF ACUTE STROKE: NO. Chest X-Ray 04/14/17 11:11 IMPRESSION: NO ACUTE RADIOGRAPHIC FINDING IN THE CHEST. NO SIGNIFICANT CHANGE FROM PRIOR STUDY. Tibia/Fibula X-Ray 04/14/17 13:12 IMPRESSION: NO RADIOGRAPHIC EVIDENCE OF ACUTE INJURY. Foot X-Ray 04/14/17 13:17 IMPRESSION: NEGATIVE STUDY OF THE LEFT FOOT. NO RADIOGRAPHIC EVIDENCE OF ACUTE INJURY. KUB X-Ray 04/15/17 00:00 IMPRESSION: Nonspecific gastric distention. 2011 [employer]- All Rights Reserved Venous Doppler Study 04/16/17 00:00 IMPRESSION: NO EVIDENCE OF DVT OR SVT IN THE LEFT LEG. Assessment & Plan - Diagnosis (1) Cellulitis of left leg Is this a current diagnosis for this admission?: Yes (2) Paroxysmal atrial fibrillation with rapid ventricular response Is this a current diagnosis for this admission?: Yes (3) Morbid obesity Is this a current diagnosis for this admission?: Yes
[2017-04-27] MEDS: NICOTINE 21 MG/24 HR PATCH.TD24 TD SCH (21:46)
[2017-04-27] MEDS: ATORVASTATIN CALCIUM 40 MG TABLET PO SCH (21:46)
[2017-04-28] MEDS: CLINDAMYCIN HCL 150 MG CAPSULE PO SCH ×5 (00:30→23:53)
[2017-04-28] MEDS: OXYCODONE-ACETAMINOPHEN 5-325 MG TABLET PO PRN ×4 (04:43→23:53)
[2017-04-28 05:54] LABS: ABSOLUTE BASOPHILS # (AUTO) 0.1 10^3/uL (0.0-0.2); ABSOLUTE LYMPHOCYTES (AUTO) 1.5 10^3/uL (0.5-4.7); ABSOLUTE MONOCYTES (AUTO) 0.7 10^3/uL (0.1-1.4); ABSOLUTE NEUT (AUTO) 7.4 10^3/uL (1.7-8.2); BASOPHILS % (AUTO) 0.7 % (0-2); EOSINOPHILS % (AUTO) 0.4 % (0-6); HEMATOCRIT 26.6 % (37.9-51.0); LYMPHOCYTES % (AUTO) 15.5 % (13-45); MEAN CORPUSCULAR HEMOGLOBIN 30.1 pg (27.0-33.4); MEAN CORPUSCULAR HGB CONC 33.7 g/dL (32.0-36.0); MEAN CORPUSCULAR VOLUME 89 fl (80-97); MONOCYTES % (AUTO) 7.3 % (3-13); PLATELET COUNT 438 10^3/uL (150-450); RED BLOOD COUNT 2.98 10^6/uL (4.35-5.55); RED CELL DISTRIBUTION WIDTH 15.1 % (11.5-14.0); SEGMENTED NEUTROPHILS % (AUTO) 76.1 % (42-78); TOTAL CELLS COUNTED % (AUTO) 100 %; WHITE BLOOD COUNT 9.7 10^3/uL (4.0-10.5)
[2017-04-28] MEDS: LANSOPRAZOLE 30 MG TAB.RAP.DR PO SCH (05:55)
[2017-04-28 06:34] LABS: ALANINE AMINOTRANSFERASE 20 U/L (21-72); ALBUMIN 2.7 g/dL (3.5-5.0); ALKALINE PHOSPHATASE 56 U/L (38-126); ANION GAP 8 (5-19); ASPARTATE AMINO TRANSFERASE 20 U/L (17-59); BILIRUBIN,DIRECT 0.3 mg/dL (0.0-0.4); BILIRUBIN,TOTAL 0.3 mg/dL (0.2-1.3); BLOOD UREA NITROGEN 11 mg/dL (7-20); CALCIUM 8.9 mg/dL (8.4-10.2); CARBON DIOXIDE 26 mmol/L (22-30); CHLORIDE 106 mmol/L (98-107); GLUCOSE 74 mg/dL (75-110); POTASSIUM 4.2 mmol/L (3.6-5.0); SODIUM 139.6 mmol/L (137-145); TOTAL PROTEIN 6.2 g/dL (6.3-8.2)
[2017-04-28] MEDS: METFORMIN HCL 500 MG TABLET PO SCH ×2 (07:26→17:59)
[2017-04-28] MEDS: BENZTROPINE MESYLATE 1 MG TABLET PO SCH ×2 (09:18→17:58)
[2017-04-28] MEDS: ENOXAPARIN SODIUM INJ 40 MG/0.4 ML DISP.SYRIN SUBCUT SCH (09:18)
[2017-04-28] MEDS: BUPROPION HCL 75 MG TABLET PO SCH (09:18)
[2017-04-28] MEDS: TAMSULOSIN HCL 0.4 MG CAP.SR.24H PO SCH (09:18)
[2017-04-28] MEDS: DIVALPROEX SODIUM 500 MG TAB.SR.24H PO SCH ×2 (09:19→22:29)
[2017-04-28] MEDS: LUBIPROSTONE 24 MCG CAPSULE PO SCH ×2 (09:19→17:58)
[2017-04-28] MEDS: OLANZAPINE 5 MG TAB.RAPDIS SL SCH ×2 (09:19→22:31)
[2017-04-28] MEDS: POLYVINYL ALCOHOL 1.4% OPH SOLN 15 ML OU SCH ×4 (09:19→22:31)
[2017-04-28] MEDS: SILVER SULFADIAZINE 1% CREAM 400 GM TP SCH ×2 (09:19→17:59)
[2017-04-28] MEDS: PSYLLIUM SEED-SF 5.85 GM PACKET PO SCH ×2 (09:19→17:59)
[2017-04-28] MEDS: POTASSIUM CHLORIDE 10 MEQ TABLET.SA PO SCH (10:56)
[2017-04-28] MEDS: METOPROLOL SUCCINATE 50 MG TAB.SR.24H PO SCH (17:58)
--- NOTE | 2017-04-28 21:31 | PDOC PROGRESS REPORT ---
Subjective Progress Note for:: 04/28/17 Subjective:: Patient is seen by the bedside he has no new complaints Reason For Visit: AFIB AND HEART RATE OF 120-155 Physical Exam Vital Signs: Temp Pulse Resp BP Pulse Ox 98.3 F 76 20 115/71 94 04/28/17 16:11 04/28/17 19:00 04/28/17 16:11 04/28/17 16:11 04/28/17 16:11 Intake & Output 04/27/17 04/28/17 04/29/17 06:59 06:59 06:59 Intake Total 1002 980 330 Output Total 1750 1850 500 Balance -748 -870 -170 Head exam: PRESENT: atraumatic, normocephalic Eye exam: PRESENT: PERRLA. ABSENT: scleral icterus Ear exam: PRESENT: normal external ear exam Mouth exam: PRESENT: moist, tongue midline Neck exam: PRESENT: full ROM Respiratory exam: PRESENT: clear to auscultation young Cardiovascular exam: PRESENT: RRR, +S1, +S2 Murmur grade: 3 Pulses: PRESENT: normal dorsalis pedis pul, +2 pedal pulses bilateral Vascular exam: PRESENT: normal capillary refill GI/Abdominal exam: PRESENT: normal bowel sounds, soft. ABSENT: distended, guarding, mass, organolmegaly, rebound, tenderness Rectal exam: PRESENT: deferred Extremities exam: PRESENT: other - Erythema the left leg Neurological exam: PRESENT: alert. ABSENT: motor sensory deficit Skin exam: ABSENT: cyanosis, rash Results Laboratory Results: 04/28/17 05:33 04/28/17 05:32 04/28/17 04/28/17 05:32 05:33 WBC 9.7 RBC 2.98 L Hgb 9.0 L Hct 26.6 L MCV 89 MCH 30.1 MCHC 33.7 RDW 15.1 H Plt Count 438 Seg Neutrophils % 76.1 Lymphocytes % 15.5 Monocytes % 7.3 Eosinophils % 0.4 Basophils % 0.7 Absolute Neutrophils 7.4 Absolute Lymphocytes 1.5 Absolute Monocytes 0.7 Absolute Eosinophils 0.0 Absolute Basophils 0.1 Sodium 139.6 Potassium 4.2 Chloride 106 Carbon Dioxide 26 Anion Gap 8 BUN 11 Creatinine 0.91 Est GFR ( Amer) > 60 Est GFR (Non-Af Amer) > 60 Glucose 74 L Calcium 8.9 Total Bilirubin 0.3 AST 20 ALT 20 L Alkaline Phosphatase 56 Total Protein 6.2 L Albumin 2.7 L Impressions: Head CT 04/14/17 07:24 IMPRESSION: NO ACUTE INTRACRANIAL IMAGING FINDINGS. EVIDENCE OF ACUTE STROKE: NO. Chest X-Ray 04/14/17 11:11 IMPRESSION: NO ACUTE RADIOGRAPHIC FINDING IN THE CHEST. NO SIGNIFICANT CHANGE FROM PRIOR STUDY. Tibia/Fibula X-Ray 04/14/17 13:12 IMPRESSION: NO RADIOGRAPHIC EVIDENCE OF ACUTE INJURY. Foot X-Ray 04/14/17 13:17 IMPRESSION: NEGATIVE STUDY OF THE LEFT FOOT. NO RADIOGRAPHIC EVIDENCE OF ACUTE INJURY. KUB X-Ray 04/15/17 00:00 IMPRESSION: Nonspecific gastric distention. 2011 [employer]- All Rights Reserved Venous Doppler Study 04/16/17 00:00 IMPRESSION: NO EVIDENCE OF DVT OR SVT IN THE LEFT LEG. Assessment & Plan - Diagnosis (1) Cellulitis of left leg Is this a current diagnosis for this admission?: Yes (2) Paroxysmal atrial fibrillation with rapid ventricular response Is this a current diagnosis for this admission?: Yes (3) Morbid obesity Is this a current diagnosis for this admission?: Yes - Plan Summary Plan Summary: Continue treatment
[2017-04-28] MEDS: NICOTINE 21 MG/24 HR PATCH.TD24 TD SCH (22:31)
[2017-04-28] MEDS: ATORVASTATIN CALCIUM 40 MG TABLET PO SCH (22:31)
[2017-04-29] MEDS: LANSOPRAZOLE 30 MG TAB.RAP.DR PO SCH (05:50)
[2017-04-29] MEDS: CLINDAMYCIN HCL 150 MG CAPSULE PO SCH ×4 (05:50→23:23)
[2017-04-29] MEDS: OXYCODONE-ACETAMINOPHEN 5-325 MG TABLET PO PRN ×4 (05:50→23:23)
[2017-04-29] MEDS: LUBIPROSTONE 24 MCG CAPSULE PO SCH ×2 (09:05→17:20)
[2017-04-29] MEDS: METFORMIN HCL 500 MG TABLET PO SCH ×2 (09:05→17:20)
[2017-04-29] MEDS: ENOXAPARIN SODIUM INJ 40 MG/0.4 ML DISP.SYRIN SUBCUT SCH (09:05)
[2017-04-29] MEDS: TAMSULOSIN HCL 0.4 MG CAP.SR.24H PO SCH (09:06)
[2017-04-29] MEDS: DIVALPROEX SODIUM 500 MG TAB.SR.24H PO SCH ×2 (09:06→21:38)
[2017-04-29] MEDS: BENZTROPINE MESYLATE 1 MG TABLET PO SCH ×2 (09:06→17:19)
[2017-04-29] MEDS: POLYVINYL ALCOHOL 1.4% OPH SOLN 15 ML OU SCH ×4 (09:06→21:38)
[2017-04-29] MEDS: BUPROPION HCL 75 MG TABLET PO SCH (09:06)
[2017-04-29] MEDS: SILVER SULFADIAZINE 1% CREAM 400 GM TP SCH ×2 (09:07→17:21)
[2017-04-29] MEDS: PSYLLIUM SEED-SF 5.85 GM PACKET PO SCH ×2 (09:07→17:21)
[2017-04-29] MEDS: OLANZAPINE 5 MG TAB.RAPDIS SL SCH ×2 (09:07→21:38)
[2017-04-29] MEDS: POTASSIUM CHLORIDE 10 MEQ TABLET.SA PO SCH (11:42)
[2017-04-29] MEDS: METOPROLOL SUCCINATE 50 MG TAB.SR.24H PO SCH (17:19)
[2017-04-29] MEDS: ATORVASTATIN CALCIUM 40 MG TABLET PO SCH (21:38)
[2017-04-29] MEDS: NICOTINE 21 MG/24 HR PATCH.TD24 TD SCH (21:38)
--- NOTE | 2017-04-29 22:39 | PDOC PROGRESS REPORT ---
Subjective Progress Note for:: 04/29/17 Subjective:: Patient seen by the bedside, there is improvement in the cellulitis, there is a lot of slough but overall is better Reason For Visit: AFIB AND HEART RATE OF 120-155 Physical Exam Vital Signs: Temp Pulse Resp BP Pulse Ox 98.2 F 81 14 100/48 L 94 04/29/17 19:50 04/29/17 19:50 04/29/17 19:50 04/29/17 19:50 04/29/17 19:50 Intake & Output 04/28/17 04/29/17 04/30/17 06:59 06:59 06:59 Intake Total 980 791 300 Output Total 1850 1980 200 Balance -870 -1189 100 General appearance: PRESENT: no acute distress Head exam: PRESENT: atraumatic, normocephalic Eye exam: PRESENT: conjunctiva pink, EOMI, PERRLA Ear exam: PRESENT: normal external ear exam Mouth exam: PRESENT: moist, tongue midline Neck exam: PRESENT: full ROM Cardiovascular exam: PRESENT: RRR, +S1, +S2 Murmur grade: 3 Vascular exam: PRESENT: normal capillary refill GI/Abdominal exam: PRESENT: normal bowel sounds, soft Rectal exam: PRESENT: deferred Neurological exam: PRESENT: alert Psychiatric exam: PRESENT: appropriate affect. ABSENT: homicidal ideation, suicidal ideation Skin exam: PRESENT: dry, intact, warm. ABSENT: cyanosis, rash Results Laboratory Results: 04/28/17 05:33 04/28/17 05:32 Impressions: Head CT 04/14/17 07:24 IMPRESSION: NO ACUTE INTRACRANIAL IMAGING FINDINGS. EVIDENCE OF ACUTE STROKE: NO. Chest X-Ray 04/14/17 11:11 IMPRESSION: NO ACUTE RADIOGRAPHIC FINDING IN THE CHEST. NO SIGNIFICANT CHANGE FROM PRIOR STUDY. Tibia/Fibula X-Ray 04/14/17 13:12 IMPRESSION: NO RADIOGRAPHIC EVIDENCE OF ACUTE INJURY. Foot X-Ray 04/14/17 13:17 IMPRESSION: NEGATIVE STUDY OF THE LEFT FOOT. NO RADIOGRAPHIC EVIDENCE OF ACUTE INJURY. KUB X-Ray 04/15/17 00:00 IMPRESSION: Nonspecific gastric distention. 2010 [employer]- All Rights Reserved Venous Doppler Study 04/16/17 00:00 IMPRESSION: NO EVIDENCE OF DVT OR SVT IN THE LEFT LEG. Assessment & Plan - Diagnosis (1) Cellulitis of left leg Is this a current diagnosis for this admission?: Yes (2) Paroxysmal atrial fibrillation with rapid ventricular response Is this a current diagnosis for this admission?: Yes (3) Morbid obesity Is this a current diagnosis for this admission?: Yes
[2017-04-30] MEDS: CLINDAMYCIN HCL 150 MG CAPSULE PO SCH ×4 (05:56→23:35)
[2017-04-30] MEDS: OXYCODONE-ACETAMINOPHEN 5-325 MG TABLET PO PRN ×4 (05:56→23:34)
[2017-04-30] MEDS: LANSOPRAZOLE 30 MG TAB.RAP.DR PO SCH (05:56)
[2017-04-30] MEDS: ENOXAPARIN SODIUM INJ 40 MG/0.4 ML DISP.SYRIN SUBCUT SCH (09:35)
[2017-04-30] MEDS: POLYVINYL ALCOHOL 1.4% OPH SOLN 15 ML OU SCH ×4 (09:35→21:31)
[2017-04-30] MEDS: PSYLLIUM SEED-SF 5.85 GM PACKET PO SCH ×2 (09:35→17:45)
[2017-04-30] MEDS: DIVALPROEX SODIUM 500 MG TAB.SR.24H PO SCH ×2 (09:36→21:29)
[2017-04-30] MEDS: LUBIPROSTONE 24 MCG CAPSULE PO SCH ×2 (09:36→17:46)
[2017-04-30] MEDS: BUPROPION HCL 75 MG TABLET PO SCH (09:36)
[2017-04-30] MEDS: OLANZAPINE 5 MG TAB.RAPDIS SL SCH ×2 (09:36→21:30)
[2017-04-30] MEDS: METFORMIN HCL 500 MG TABLET PO SCH ×2 (09:36→17:46)
[2017-04-30] MEDS: BENZTROPINE MESYLATE 1 MG TABLET PO SCH ×2 (09:37→17:46)
[2017-04-30] MEDS: TAMSULOSIN HCL 0.4 MG CAP.SR.24H PO SCH (09:37)
[2017-04-30] MEDS: SILVER SULFADIAZINE 1% CREAM 400 GM TP SCH ×2 (09:37→17:47)
[2017-04-30] MEDS: POTASSIUM CHLORIDE 10 MEQ TABLET.SA PO SCH (12:16)
[2017-04-30] MEDS: METOPROLOL SUCCINATE 50 MG TAB.SR.24H PO SCH (17:45)
[2017-04-30] MEDS: NICOTINE 21 MG/24 HR PATCH.TD24 TD SCH (21:29)
[2017-04-30] MEDS: ATORVASTATIN CALCIUM 40 MG TABLET PO SCH (21:30)
[2017-05-01] MEDS: CLINDAMYCIN HCL 150 MG CAPSULE PO SCH ×4 (05:11→23:59)
[2017-05-01] MEDS: LANSOPRAZOLE 30 MG TAB.RAP.DR PO SCH (05:12)
[2017-05-01] MEDS: OXYCODONE-ACETAMINOPHEN 5-325 MG TABLET PO PRN ×3 (06:50→22:43)
[2017-05-01] MEDS: TAMSULOSIN HCL 0.4 MG CAP.SR.24H PO SCH (11:09)
[2017-05-01] MEDS: BENZTROPINE MESYLATE 1 MG TABLET PO SCH ×2 (11:10→18:39)
[2017-05-01] MEDS: DIVALPROEX SODIUM 500 MG TAB.SR.24H PO SCH ×2 (11:11→22:42)
[2017-05-01] MEDS: BUPROPION HCL 75 MG TABLET PO SCH (11:11)
[2017-05-01] MEDS: METFORMIN HCL 500 MG TABLET PO SCH ×2 (11:12→16:41)
[2017-05-01] MEDS: ENOXAPARIN SODIUM INJ 40 MG/0.4 ML DISP.SYRIN SUBCUT SCH (11:13)
[2017-05-01] MEDS: PSYLLIUM SEED-SF 5.85 GM PACKET PO SCH ×2 (11:14→18:39)
[2017-05-01] MEDS: OLANZAPINE 5 MG TAB.RAPDIS SL SCH ×2 (11:15→22:42)
[2017-05-01] MEDS: LUBIPROSTONE 24 MCG CAPSULE PO SCH ×2 (11:15→18:40)
[2017-05-01] MEDS: POLYVINYL ALCOHOL 1.4% OPH SOLN 15 ML OU SCH ×4 (11:16→22:43)
[2017-05-01] MEDS: SILVER SULFADIAZINE 1% CREAM 400 GM TP SCH ×2 (11:22→18:40)
[2017-05-01] MEDS: POTASSIUM CHLORIDE 10 MEQ TABLET.SA PO SCH (11:23)
--- NOTE | 2017-05-01 20:47 | PDOC PROGRESS REPORT ---
Subjective Progress Note for:: 05/01/17 Subjective:: Patient is improving on present regimen, continue present treatment Reason For Visit: AFIB AND HEART RATE OF 120-155 Physical Exam Vital Signs: Temp Pulse Resp BP Pulse Ox 98.2 F 73 16 105/52 L 96 05/01/17 16:00 05/01/17 16:00 05/01/17 16:00 05/01/17 16:00 05/01/17 16:00 Intake & Output 04/30/17 05/01/17 05/02/17 06:59 06:59 06:59 Intake Total 903 730 660 Output Total 1275 1975 1900 Balance -372 -1245 -1240 General appearance: PRESENT: no acute distress Head exam: PRESENT: atraumatic, normocephalic Ear exam: PRESENT: normal external ear exam Mouth exam: PRESENT: moist, tongue midline Neck exam: PRESENT: full ROM Respiratory exam: PRESENT: clear to auscultation young Cardiovascular exam: PRESENT: RRR, +S1, +S2 Murmur grade: 3 Pulses: PRESENT: normal dorsalis pedis pul, +2 pedal pulses bilateral Vascular exam: PRESENT: normal capillary refill GI/Abdominal exam: PRESENT: normal bowel sounds, soft Rectal exam: PRESENT: deferred Neurological exam: PRESENT: alert Psychiatric exam: PRESENT: appropriate affect, normal mood Skin exam: PRESENT: dry, intact, warm Results Laboratory Results: 04/28/17 05:33 04/28/17 05:32 Impressions: Head CT 04/14/17 07:24 IMPRESSION: NO ACUTE INTRACRANIAL IMAGING FINDINGS. EVIDENCE OF ACUTE STROKE: NO. Chest X-Ray 04/14/17 11:11 IMPRESSION: NO ACUTE RADIOGRAPHIC FINDING IN THE CHEST. NO SIGNIFICANT CHANGE FROM PRIOR STUDY. Tibia/Fibula X-Ray 04/14/17 13:12 IMPRESSION: NO RADIOGRAPHIC EVIDENCE OF ACUTE INJURY. Foot X-Ray 04/14/17 13:17 IMPRESSION: NEGATIVE STUDY OF THE LEFT FOOT. NO RADIOGRAPHIC EVIDENCE OF ACUTE INJURY. KUB X-Ray 04/15/17 00:00 IMPRESSION: Nonspecific gastric distention. 2010 [employer]- All Rights Reserved Venous Doppler Study 04/16/17 00:00 IMPRESSION: NO EVIDENCE OF DVT OR SVT IN THE LEFT LEG. Assessment & Plan - Diagnosis (1) Cellulitis of left leg Is this a current diagnosis for this admission?: Yes (2) Paroxysmal atrial fibrillation with rapid ventricular response Is this a current diagnosis for this admission?: Yes (3) Morbid obesity Is this a current diagnosis for this admission?: Yes
--- NOTE | 2017-05-01 20:47 | PDOC PROGRESS REPORT ---
Subjective Progress Note for:: 04/30/17 Subjective:: Patient is improving on present regimen Reason For Visit: AFIB AND HEART RATE OF 120-155 Physical Exam Vital Signs: Temp Pulse Resp BP Pulse Ox 98.2 F 73 16 105/52 L 96 05/01/17 16:00 05/01/17 16:00 05/01/17 16:00 05/01/17 16:00 05/01/17 16:00 Intake & Output 04/30/17 05/01/17 05/02/17 06:59 06:59 06:59 Intake Total 903 730 660 Output Total 1275 4435 1900 Balance -372 -1241 -124 General appearance: PRESENT: no acute distress, well-developed, well-nourished Head exam: PRESENT: atraumatic, normocephalic Eye exam: PRESENT: conjunctiva pink, EOMI, PERRLA Mouth exam: PRESENT: moist, tongue midline Neck exam: PRESENT: full ROM Respiratory exam: PRESENT: clear to auscultation young Cardiovascular exam: PRESENT: RRR, +S1, +S2 Murmur grade: 3 Pulses: PRESENT: normal dorsalis pedis pul, +2 pedal pulses bilateral Vascular exam: PRESENT: normal capillary refill GI/Abdominal exam: PRESENT: normal bowel sounds, soft Rectal exam: PRESENT: deferred Neurological exam: PRESENT: alert Psychiatric exam: PRESENT: appropriate affect, normal mood Skin exam: PRESENT: dry, intact, warm Results Laboratory Results: 04/28/17 05:33 04/28/17 05:32 Impressions: Head CT 04/14/17 07:24 IMPRESSION: NO ACUTE INTRACRANIAL IMAGING FINDINGS. EVIDENCE OF ACUTE STROKE: NO. Chest X-Ray 04/14/17 11:11 IMPRESSION: NO ACUTE RADIOGRAPHIC FINDING IN THE CHEST. NO SIGNIFICANT CHANGE FROM PRIOR STUDY. Tibia/Fibula X-Ray 04/14/17 13:12 IMPRESSION: NO RADIOGRAPHIC EVIDENCE OF ACUTE INJURY. Foot X-Ray 04/14/17 13:17 IMPRESSION: NEGATIVE STUDY OF THE LEFT FOOT. NO RADIOGRAPHIC EVIDENCE OF ACUTE INJURY. KUB X-Ray 04/15/17 00:00 IMPRESSION: Nonspecific gastric distention. 2010 [employer]- All Rights Reserved Venous Doppler Study 04/16/17 00:00 IMPRESSION: NO EVIDENCE OF DVT OR SVT IN THE LEFT LEG. Assessment & Plan - Diagnosis (1) Cellulitis of left leg Is this a current diagnosis for this admission?: Yes (2) Paroxysmal atrial fibrillation with rapid ventricular response Is this a current diagnosis for this admission?: Yes (3) Morbid obesity Is this a current diagnosis for this admission?: Yes
[2017-05-01] MEDS: NICOTINE 21 MG/24 HR PATCH.TD24 TD SCH (22:42)
[2017-05-01] MEDS: ATORVASTATIN CALCIUM 40 MG TABLET PO SCH (22:42)
[2017-05-01] MEDS: METOPROLOL SUCCINATE 50 MG TAB.SR.24H PO SCH (22:43)
[2017-05-02] MEDS: LANSOPRAZOLE 30 MG TAB.RAP.DR PO SCH (04:44)
[2017-05-02] MEDS: OXYCODONE-ACETAMINOPHEN 5-325 MG TABLET PO PRN ×4 (04:44→23:20)
[2017-05-02] MEDS: CLINDAMYCIN HCL 150 MG CAPSULE PO SCH ×4 (04:44→23:24)
[2017-05-02] MEDS: LUBIPROSTONE 24 MCG CAPSULE PO SCH ×2 (10:30→17:41)
[2017-05-02] MEDS: PSYLLIUM SEED-SF 5.85 GM PACKET PO SCH ×2 (10:30→17:41)
[2017-05-02] MEDS: TAMSULOSIN HCL 0.4 MG CAP.SR.24H PO SCH (10:31)
[2017-05-02] MEDS: POLYVINYL ALCOHOL 1.4% OPH SOLN 15 ML OU SCH ×4 (10:31→21:08)
[2017-05-02] MEDS: METFORMIN HCL 500 MG TABLET PO SCH ×2 (10:32→16:36)
[2017-05-02] MEDS: BENZTROPINE MESYLATE 1 MG TABLET PO SCH ×2 (10:32→17:41)
[2017-05-02] MEDS: BUPROPION HCL 75 MG TABLET PO SCH (10:32)
[2017-05-02] MEDS: DIVALPROEX SODIUM 500 MG TAB.SR.24H PO SCH ×2 (10:33→21:08)
[2017-05-02] MEDS: ENOXAPARIN SODIUM INJ 40 MG/0.4 ML DISP.SYRIN SUBCUT SCH (10:33)
[2017-05-02] MEDS: OLANZAPINE 5 MG TAB.RAPDIS SL SCH ×2 (11:08→21:07)
[2017-05-02] MEDS: POTASSIUM CHLORIDE 10 MEQ TABLET.SA PO SCH (12:17)
[2017-05-02] MEDS: SILVER SULFADIAZINE 1% CREAM 400 GM TP SCH ×2 (12:17→17:42)
--- NOTE | 2017-05-02 20:10 | PDOC TRANSFER SUMMARY ---
General - Admit/Disc Date/PCP Admission Date/Primary Care Provider: 04/14/17 14:28 LISA QUAN MD Discharge Date: 05/02/17 - Discharge Diagnosis (1) Cellulitis of left leg Is this a current diagnosis for this admission?: Yes (2) Paroxysmal atrial fibrillation with rapid ventricular response Is this a current diagnosis for this admission?: Yes (3) Morbid obesity Is this a current diagnosis for this admission?: Yes - Additional Information Resuscitation Status: Full Code Discharge Diet: Regular, Diabetic Discharge Activity: Activity As Tolerated Prescriptions: Clindamycin HCl [Cleocin 150 mg Capsule] 300 mg PO Q6 #28 capsule Metoprolol Succinate [Toprol XL 100 mg Tablet] 100 mg PO DAILY #90 tab.sr.24h Silver Sulfadiazine [Silvadene 1% Cream 400 gm] 1 applic TP BID #1 jar Home Medications: Acetaminophen [Tylenol 325 mg Tablet] 650 mg PO Q4HP PRN 04/14/17 Acetaminophen [Tylenol 325 mg Tablet] 650 mg PO Q8 04/14/17 Benztropine Mesylate 1 mg PO BID 04/14/17 Bismuth Subsalicylate [Bismuth] 15 ml PO Q4HP PRN 04/14/17 Bupropion HCl [Wellbutrin 75 mg Tablet] 75 mg PO DAILY 04/14/17 Calcium Carbonate [Tums Chewable 500 mg Tab.chew] 1,000 mg PO Q1HP PRN 04/14/17 Diazepam [Valium 5 mg Tablet] 5 mg PO Q8HP PRN 04/14/17 Divalproex Sodium [Depakote] 1,000 mg PO QHS 04/14/17 Divalproex Sodium [Depakote] 500 mg PO DAILY 04/14/17 Doxepin HCl [Silenor] 3 mg PO QHS 04/14/17 Ergocalciferol (Vitamin D2) [Drisdol 50,000 unit (1.25MG) Capsule] 50,000 unit PO MO@1000 04/14/17 Lubiprostone [Amitiza] 24 mcg PO BID 04/14/17 Mag Hydrox/Al Hydrox/Simeth [Maalox Plus Susp 30 Udcup] 30 ml PO Q4HP PRN Magnesium Hydroxide [Milk of Magnesia 30 ml Udcup] 30 ml PO BIDP PRN 04/14/17 Melatonin [Melatin] 3 mg PO QHS 04/14/17 Metformin HCl [Glucophage] 1,000 mg PO BIDBS 04/14/17 Methylcellulose [Fiber] 1,000 mg PO BID 04/14/17 Olanzapine [Olanzapine Odt] 15 mg SL BID 04/14/17 Propylene Glycol/Peg 400/Pf [Systane 0.3-0.4% Eye Drops] 1 drop OU QID 04/14/17 Rosuvastatin Calcium [Crestor 20 mg Tablet] 20 mg PO DAILY 04/14/17 Sennosides [Senna] 8.6 mg PO DAILYP PRN 04/14/17 Tamsulosin HCl [Flomax 0.4 mg Cap.sr] 0.4 mg PO DAILY 04/14/17 Zolpidem Tartrate [Ambien] 10 mg PO QHS 04/14/17 Clindamycin HCl [Cleocin 150 mg Capsule] 300 mg PO Q6 #28 capsule 05/02/17 Metoprolol Succinate [Toprol XL 100 mg Tablet] 100 mg PO DAILY #90 tab.sr.24h Silver Sulfadiazine [Silvadene 1% Cream 400 gm] 1 applic TP BID #1 jar 05/02/17 History of Present Illness Admission Date/PCP: 04/14/17 14:28 LISA QUAN MD History of Present Illness: Patient was admitted when he presented with severe cellulitis of the left leg Hospital Course Hospital Course: He was admitted for the management of severe cellulitis of the left leg, he was treated with IV antibiotic, clindamycin, Zosyn and vancomycin, he developed paroxysmal atrial fibrillation with rapid ventricular response requiring Cardizem infusion for rate control. He was seen by the surgeon because of necrosis subsequently cellulitis he underwent excisional debridement by the surgeon. He also had topical Silvadene cream application the left leg. Venous Doppler of the left leg was done there was no deep vein thrombosis establish on ultrasound. Patient may need chronic anticoagulation because of the atrial fibrillation, this would be reevaluated outpatient when because of follow-up. He has multiple medication for his schizoaffective disorder. Physical Exam Vital Signs: Temp Pulse Resp BP Pulse Ox 98.3 F 78 18 101/48 L 96 05/02/17 16:00 05/02/17 16:00 05/02/17 16:00 05/02/17 16:00 05/02/17 16:00 Intake & Output 05/01/17 05/02/17 05/03/17 06:59 06:59 06:59 Intake Total 730 1210 540 Output Total 9249 3100 300 Balance -1245 -1890 240 General appearance: PRESENT: no acute distress, well-developed, well-nourished Head exam: PRESENT: atraumatic, normocephalic Eye exam: PRESENT: conjunctiva pink, EOMI, PERRLA Ear exam: PRESENT: normal external ear exam Mouth exam: PRESENT: moist, tongue midline Respiratory exam: PRESENT: clear to auscultation young Cardiovascular exam: PRESENT: RRR, +S1, +S2 Pulses: PRESENT: normal dorsalis pedis pul Vascular exam: PRESENT: normal capillary refill GI/Abdominal exam: PRESENT: normal bowel sounds, soft Rectal exam: PRESENT: deferred Extremities exam: PRESENT: full ROM, tenderness, +1 edema, other - Left leg erythema Neurological exam: PRESENT: alert Psychiatric exam: PRESENT: appropriate affect, normal mood Skin exam: PRESENT: dry, intact, warm Results Laboratory Results: 04/28/17 05:33 04/28/17 05:32 Impressions: Head CT 04/14/17 07:24 IMPRESSION: NO ACUTE INTRACRANIAL IMAGING FINDINGS. EVIDENCE OF ACUTE STROKE: NO. Chest X-Ray 04/14/17 11:11 IMPRESSION: NO ACUTE RADIOGRAPHIC FINDING IN THE CHEST. NO SIGNIFICANT CHANGE FROM PRIOR STUDY. Tibia/Fibula X-Ray 04/14/17 13:12 IMPRESSION: NO RADIOGRAPHIC EVIDENCE OF ACUTE INJURY. Foot X-Ray 04/14/17 13:17 IMPRESSION: NEGATIVE STUDY OF THE LEFT FOOT. NO RADIOGRAPHIC EVIDENCE OF ACUTE INJURY. KUB X-Ray 04/15/17 00:00 IMPRESSION: Nonspecific gastric distention. 2011 [employer]- All Rights Reserved Venous Doppler Study 04/16/17 00:00 IMPRESSION: NO EVIDENCE OF DVT OR SVT IN THE LEFT LEG.
[2017-05-02] MEDS: ATORVASTATIN CALCIUM 40 MG TABLET PO SCH (21:07)
[2017-05-02] MEDS: NICOTINE 21 MG/24 HR PATCH.TD24 TD SCH (21:08)
[2017-05-03] MEDS: OXYCODONE-ACETAMINOPHEN 5-325 MG TABLET PO PRN ×2 (05:23→12:14)
[2017-05-03] MEDS: CLINDAMYCIN HCL 150 MG CAPSULE PO SCH ×3 (05:23→17:09)
[2017-05-03] MEDS: LANSOPRAZOLE 30 MG TAB.RAP.DR PO SCH (05:24)
[2017-05-03] MEDS: METFORMIN HCL 500 MG TABLET PO SCH ×2 (08:05→17:09)
[2017-05-03] MEDS: SENNOSIDES/DOCUSATE 8.6-50 MG 1 EACH TABLET PO PRN (08:30)
[2017-05-03] MEDS: TAMSULOSIN HCL 0.4 MG CAP.SR.24H PO SCH (09:39)
[2017-05-03] MEDS: BENZTROPINE MESYLATE 1 MG TABLET PO SCH ×2 (09:39→17:10)
[2017-05-03] MEDS: BUPROPION HCL 75 MG TABLET PO SCH (09:40)
[2017-05-03] MEDS: DIVALPROEX SODIUM 500 MG TAB.SR.24H PO SCH (09:40)
[2017-05-03] MEDS: LUBIPROSTONE 24 MCG CAPSULE PO SCH ×2 (09:41→17:10)
[2017-05-03] MEDS: POLYVINYL ALCOHOL 1.4% OPH SOLN 15 ML OU SCH ×3 (09:41→17:10)
[2017-05-03] MEDS: SILVER SULFADIAZINE 1% CREAM 400 GM TP SCH ×2 (09:41→17:11)
[2017-05-03] MEDS: OLANZAPINE 5 MG TAB.RAPDIS SL SCH (09:42)
[2017-05-03] MEDS: PSYLLIUM SEED-SF 5.85 GM PACKET PO SCH ×2 (09:42→17:11)
[2017-05-03] MEDS: ENOXAPARIN SODIUM INJ 40 MG/0.4 ML DISP.SYRIN SUBCUT SCH (09:43)
[2017-05-03] MEDS: POTASSIUM CHLORIDE 10 MEQ TABLET.SA PO SCH (12:13)
[2017-05-03 16:08] VITALS: BP 96/47
--- NOTE | 2017-06-05 12:23 | OPERATIVE REPORT E ---
Operative Report NAME: KATHLEEN HARRISON : 1955 AGE: 61Y DATE OF SURGERY: 04/21/2017 ROOM: 431 PREOPERATIVE DIAGNOSIS: Exfoliating bulla left lower extremity. POSTOPERATIVE DIAGNOSIS: Exfoliating bulla left lower extremity. PROCEDURE: Excision and debridement of bulla. SURGEON: ZENOBIA DAVIDSON M.D. ANESTHESIA: None. COMPLICATIONS: None. FINDINGS: See below. ESTIMATED BLOOD LOSS: Scant. SUMMARY OF PROCEDURE: Patient's left lower extremity was examined. Surgical timeout was conducted. The leg was washed with soapy water, and exfoliating,necrotic tissue consisting of bulla was excisionally debrided using pickups and scissors. Wound was washed and redressed. Total amount of tissue removed 1 g. DICTATING PHYSICIAN: ZENOBIA DAVIDSON M.D. [id number] PHY#: [id number] ID: [id number] JOB#: [id number] ACCT: [id number] cc:ZENOBIA DAVIDSON M.D. >
== END 2017-05-03 18:07 | DRG 603 ==
LOC: ER 07:05 → EH 14:28 → 4N 16:19 → 3S 04-16 04:04 → 4S 04-25 22:52
PROVIDERS: ADMIT Internal Medicine; ATTEND Internal Medicine
PROC: 0HBLXZZ Excision of Left Lower Leg Skin, External Approach (ICD-10-PCS; principal; 2017-04-21)
DX: L03.116 Cellulitis of left lower limb (principal); I48.0 Paroxysmal atrial fibrillation; E78.5 Hyperlipidemia, unspecified; I10 Essential (primary) hypertension; E11.9 Type 2 diabetes mellitus without complications; F17.210 Nicotine dependence, cigarettes, uncomplicated; F31.9 Bipolar disorder, unspecified; E78.00 Pure hypercholesterolemia, unspecified; E66.01 Morbid (severe) obesity due to excess calories; F25.9 Schizoaffective disorder, unspecified; Z88.0 Allergy status to penicillin; Z79.899 Other long term (current) drug therapy; Z68.33 Body mass index [BMI] 33.0-33.9, adult
CPT/HCPCS: 36415; 51701; 70450; 71045; 74018; 80053; 80202; 80307; 81001; 82553; 82565; 82962; 83605; 83690; 83735; 84439; 84443; 84484; 85025; 85610; 85730; 87040; 87804; 93005; 93010; 93306; 93925; 93971; 96361; 96365; 96367; 99285; G8978-GP; G8979-GP; J0696; J1650; J2405; J3370; J3480; J3490; J7030; J7040; J7060

== ENCOUNTER 2017-05-24 18:49 | Emergency (ER) | payer MEDICARE, MEDICAID ==
--- NOTE | 2017-05-24 20:22 | ER Document Report ---
ED Extremity Problem, Lower - General Chief Complaint: Leg Pain Stated Complaint: LEFT LEG PAIN Time Seen by Provider: 05/24/17 20:09 Notes: Patient is a 61-year-old male that comes emergency department for chief complaint of pain in his left lower extremity with spreading redness. Patient has chronic wounds that are bandaged regularly he reports, he comes by EMS from [facility]. He states he was started on antibiotics several days ago but it does not seem to be helping. He denies fever. Past medical history of type 2 diabetes, schizophrenia. His records indicate he was started on clindamycin 4 days ago. TRAVEL OUTSIDE OF THE [place] IN LAST 30 DAYS: No - Related Data Allergies/Adverse Reactions: Penicillins Allergy (Verified 11/23/15 11:27) Past Medical History - General Information source: Patient - Social History Smoking Status: Never Smoker Frequency of alcohol use: None Drug Abuse: None Lives with: [facility], [place] Family History: Reviewed & Not Pertinent Patient has suicidal ideation: No Patient has homicidal ideation: No - Past Medical History Cardiac Medical History: Reports: Hx Hypercholesterolemia, Hx Hypertension Pulmonary Medical History: Reports: Hx Pneumonia - "Neurocognitive Disorder" Endocrine Medical History: Reports: Hx Diabetes Mellitus Type 2 Renal/ Medical History: Denies: Hx Peritoneal Dialysis Psychiatric Medical History: Reports: Hx Depression Past Surgical History: Reports: Hx Orthopedic Surgery - Left Knee - Immunizations Immunizations up to date: Yes Hx Diphtheria, Pertussis, Tetanus Vaccination: No Review of Systems - Review of Systems Constitutional: No symptoms reported EENT: No symptoms reported Cardiovascular: No symptoms reported Respiratory: No symptoms reported Gastrointestinal: No symptoms reported Genitourinary: No symptoms reported Male Genitourinary: No symptoms reported Musculoskeletal: See HPI Skin: See HPI Hematologic/Lymphatic: No symptoms reported Neurological/Psychological: No symptoms reported Physical Exam - Vital signs Vitals: Temp Pulse Resp BP Pulse Ox 98.1 F 70 17 121/58 L 94 05/25/17 01:11 05/25/17 01:11 05/25/17 01:11 05/25/17 01:11 05/25/17 01:11 Interpretation: Normal - General General appearance: Appears well, Alert In distress: None - Alert, conversational, well-appearing - HEENT Head: Normocephalic, Atraumatic Eyes: Normal Pupils: PERRL - Respiratory Respiratory status: No respiratory distress Chest status: Nontender Breath sounds: Normal. No: Decreased air movement, Wheezing Chest palpation: Normal - Cardiovascular Rhythm: Regular. No: Tachycardia Heart sounds: Normal auscultation, S1 appreciated, S2 appreciated Murmur: No - Abdominal Inspection: Normal Distension: No distension Bowel sounds: Normal Tenderness: Nontender Organomegaly: No organomegaly - Back Back: Normal, Nontender - Extremities General upper extremity: Normal inspection, Nontender, Normal color, Normal ROM , Normal temperature General lower extremity: Other - Erythema and warmth consistent with cellulitis extending from the left lateral distal tibia, slightly over the top of the foot , and extending to the proximal tibial area but not including the knee. Normal range of motion in the knee and ankle. No lymphangitis, no induration or fluctuance, no purulent drainage. No significant pain, patient can stand and walk without difficulty. - Neurological Neuro grossly intact: Yes Cognition: Normal Orientation: AAOx4 [place] Coma Scale Eye Opening: Spontaneous Araceli Coma Scale Verbal: Oriented Araceli Coma Scale Motor: Obeys Commands Araceli Coma Scale Total: 15 Speech: Normal Motor strength normal: LUE, RUE, LLE, RLE Sensory: Normal - Psychological Associated symptoms: Normal affect, Normal mood - Skin Skin Temperature: Warm Skin Moisture: Dry Skin Color: Normal Course - Re-evaluation Re-evalutation: Patient has small skin openings on the left lower tibial areas, appear to have become infected with cellulitis, no induration or fluctuance, no purulent discharge. Area is not significantly tender. Cellulitis does extend to the top of the foot and up towards the proximal tibia but not including the knee, ankle, and no evidence of lymphangitis. Patient is afebrile, normal vital signs , no leukocytosis. Because patient is already started on antibiotics outpatient I called and spoke with Dr. uQan. Discussed admission for antibiotics versus changing his antibiotics for better coverage and close follow-up. His recommendation at this time is to have patient on Bactrim and Keflex and have a close follow-up performed with strict return precautions. These were discussed with patient. Patient states preference for this plan, states he does not want to be admitted to the hospital and will return if he worsens in any way. Given doses of antibiotics here tonight. - Vital Signs Vital signs: Temp Pulse Resp BP Pulse Ox 98.1 F 70 17 121/58 L 94 05/25/17 01:11 05/25/17 01:11 05/25/17 01:11 05/25/17 01:11 05/25/17 01:11 - Laboratory Result Diagrams: 05/24/17 21:10 05/24/17 21:10 Laboratory results interpreted by me: 05/24/17 21:10 RBC 2.91 L Hgb 8.7 L Hct 25.9 L RDW 16.6 H Discharge - Discharge Clinical Impression: Cellulitis of left leg Condition: Stable Disposition: HOME, SELF-CARE Additional Instructions: Your workup does not show any concerning abnormalities. Your exam shows cellulitis, a skin infection in your leg. I have spoken with Dr. Dav heath, the plan is to change your antibiotic treatment to Bactrim and Keflex, stop the clindamycin, please have your leg rechecked within the next 24-48 hours with your primary care. Keep leg clean, elevate when possible. Return to emergency department if you worsen including spreading up the leg, discolored discharge, fever of 100.4 or greater, or any other concerning symptoms. Prescriptions: Cephalexin Monohydrate [Keflex 500 mg Capsule] 500 mg PO QID #28 capsule Sulfamethoxazole/Trimethoprim [Bactrim Ds Tablet] 1 each PO BID #14 tablet Referrals: LISA QUAN MD [Primary Care Provider] - 05/26/17
[2017-05-24] MEDS ORDERED: NICOTINE 14 MG/24 HR PATCH.TD24 TD ONE (21:26)
[2017-05-24 21:36] LABS: ABSOLUTE EOSINOPHILS # (AUTO) 0.1 10^3/uL (0.0-0.6); ABSOLUTE LYMPHOCYTES (AUTO) 1.9 10^3/uL (0.5-4.7); ABSOLUTE MONOCYTES (AUTO) 0.6 10^3/uL (0.1-1.4); ABSOLUTE NEUT (AUTO) 5.1 10^3/uL (1.7-8.2); BASOPHILS % (AUTO) 0.6 % (0-2); EOSINOPHILS % (AUTO) 1.4 % (0-6); HEMATOCRIT 25.9 % (37.9-51.0); HEMOGLOBIN 8.7 g/dL (13.5-17.0); MEAN CORPUSCULAR HEMOGLOBIN 29.9 pg (27.0-33.4); MEAN CORPUSCULAR HGB CONC 33.6 g/dL (32.0-36.0); MEAN CORPUSCULAR VOLUME 89 fl (80-97); MONOCYTES % (AUTO) 7.8 % (3-13); PLATELET COUNT 321 10^3/uL (150-450); RED BLOOD COUNT 2.91 10^6/uL (4.35-5.55); RED CELL DISTRIBUTION WIDTH 16.6 % (11.5-14.0); SEGMENTED NEUTROPHILS % (AUTO) 66.2 % (42-78); TOTAL CELLS COUNTED % (AUTO) 100 %; WHITE BLOOD COUNT 7.7 10^3/uL (4.0-10.5)
[2017-05-24 21:50] LABS: ANION GAP 9 (5-19); BLOOD UREA NITROGEN 16 mg/dL (7-20); CARBON DIOXIDE 26 mmol/L (22-30); CHLORIDE 106 mmol/L (98-107); GLUCOSE 104 mg/dL (75-110); POTASSIUM 3.9 mmol/L (3.6-5.0); SODIUM 140.6 mmol/L (137-145)
[2017-05-24] MEDS ORDERED: CEPHALEXIN 500 MG CAPSULE PO ONE (22:12)
[2017-05-24] MEDS ORDERED: SULFAMETHOXAZOLE/TRIMETHOPRIM 800-160 MG TABLET PO ONE (22:12)
[2017-05-25 03:13] VITALS: BP 121/58
== END 2017-05-25 01:11 | disposition home or self-care (01) ==
LOC: ER 18:49
DX: L03.116 Cellulitis of left lower limb (principal); M79.605 Pain in left leg; E11.9 Type 2 diabetes mellitus without complications; F20.9 Schizophrenia, unspecified
CPT/HCPCS: 99283; 36415; 85025; 80048; A9270 ×2

== ENCOUNTER → 2017-07-22 | Outpatient (CLI) | payer MEDICARE, MEDICAID ==
[2017-07-22 11:14] LABS: ABSOLUTE BASOPHILS # (AUTO) 0.1 10^3/uL (0.0-0.2); ABSOLUTE EOSINOPHILS # (AUTO) 0.1 10^3/uL (0.0-0.6); ABSOLUTE LYMPHOCYTES (AUTO) 1.4 10^3/uL (0.5-4.7); ABSOLUTE MONOCYTES (AUTO) 0.5 10^3/uL (0.1-1.4); ABSOLUTE NEUT (AUTO) 5.4 10^3/uL (1.7-8.2); BASOPHILS % (AUTO) 0.8 % (0-2); HEMATOCRIT 35.4 % (37.9-51.0); HEMOGLOBIN 11.7 g/dL (13.5-17.0); MEAN CORPUSCULAR HEMOGLOBIN 29.1 pg (27.0-33.4); MEAN CORPUSCULAR HGB CONC 33.2 g/dL (32.0-36.0); MEAN CORPUSCULAR VOLUME 88 fl (80-97); MONOCYTES % (AUTO) 7.2 % (3-13); PLATELET COUNT 315 10^3/uL (150-450); RED BLOOD COUNT 4.04 10^6/uL (4.35-5.55); RED CELL DISTRIBUTION WIDTH 17.5 % (11.5-14.0); TOTAL CELLS COUNTED % (AUTO) 100 %; WHITE BLOOD COUNT 7.5 10^3/uL (4.0-10.5)
[2017-07-22 11:36] LABS: ALANINE AMINOTRANSFERASE 18 U/L (21-72); ALBUMIN 3.6 g/dL (3.5-5.0); ALKALINE PHOSPHATASE 49 U/L (38-126); ANION GAP 9 (5-19); ASPARTATE AMINO TRANSFERASE 18 U/L (17-59); BILIRUBIN,DIRECT 0.4 mg/dL (0.0-0.4); BILIRUBIN,TOTAL 0.5 mg/dL (0.2-1.3); BLOOD UREA NITROGEN 11 mg/dL (7-20); C-REACTIVE PROTEIN 15.8 mg/L (<10.0); CALCIUM 9.5 mg/dL (8.4-10.2); CARBON DIOXIDE 27 mmol/L (22-30); CHLORIDE 100 mmol/L (98-107); GLUCOSE 101 mg/dL (75-110); SODIUM 136.1 mmol/L (137-145); TOTAL PROTEIN 6.8 g/dL (6.3-8.2)
[2017-07-22 11:54] LABS: ERYTHROCYTE SEDIMENTATION RATE 34 mm/hr (0-20)
--- NOTE | 2017-07-22 12:32 | RADIOLOGY REPORT (SQ) ---
EXAM DESCRIPTION: ANKLE LEFT COMPLETE COMPLETED DATE/TIME: 07/22/2017 11:25 am REASON FOR STUDY: NON PRESSURE ULCER LT ANKLE L97.322 NON-PRESSURE CHRONIC ULCER OF LEFT ANKLE W FA T LAYER E11.621 TYPE 2 DIABETES MELLITUS WITH FOOT ULCER COMPARISON: Left tibia and fibula films 04/14/2017 NUMBER OF VIEWS: Three views. TECHNIQUE: AP, lateral, and oblique radiographic images acquired of the left ankle. LIMITATIONS: None. FINDINGS: MINERALIZATION: Normal. BONES: No acute fracture or dislocation. No worrisome bone lesions. JOINTS: No effusions. SOFT TISSUES: There is an ulceration with an air bubble over the lateral malleolus region. No radiop aque foreign body. No underlying demineralization or periostitis of the distal fibula worrisome for osteomyelitis at this time OTHER: No other significant finding. IMPRESSION: Lateral soft tissue swelling with air bubble in the lateral malleolar region soft tissue ulcer. No underlying bony demineralization or new periosteal bone worrisome for osteomyelitis. TECHNICAL DOCUMENTATION: JOB ID: [id number] [employer]- All Rights Reserved Reading location - IP/workstation name: [facility]
--- NOTE | 2017-07-22 15:45 | XCELERA REPORT ---
[address] [address] Lower Extremity Arterial Evaluation Name: KATHLEEN HARRISON Age: 62 yrs Gender: Male : 1955 Patient Status: Outpatient Patient Location: Study Date: 07/22/2017 09:04 AM Procedure: A color flow and duplex scan of the lower extremity arteries was performed bilaterally with velocity and waveform anaylsis. Ankle brachial indicies performed. 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 0 % stenosis . Ankle Brachial index is 1.22. Left Side Arterial Evaluation Normal velocity and triphasic waveforms noted from the Common Femoral artery to the infrageniculate vessels. 0 % stenosis . Ankle Brachial index not obtained, due to patient discomfort. Interpretation Summary No hemodynamically significant lesions in the bilateral lower extremities, on duplex imaging, at rest. : YOVANNY CEDEÑO > Francisco Rogers
--- NOTE | 2017-07-22 15:53 | XCELERA REPORT ---
[address] [address] Lower Extremity Venous Evaluation Name: KATHLEEN HARRISON Age: 62 yrs Gender: Male : 1955 Patient Status: Outpatient Patient Location: Study Date: 07/22/2017 09:29 AM Procedure: A bilateral duplex scan of the lower extremity veins was performed. The evaluation included responses to compression and other maneuvers with patient in the supine and standing positions to assess venous insufficiency. Reason For Study: ULCER Ordering Physician: YOVANNY CEDEÑO Performed By: Sergio Millan Right Sided Venous Evaluation Deep venous system evaluatiion shows patent veins with no obstruction or significant reflux identified. Sapheno Femoral junction: no reflux. Femoral vein reflux: no reflux. Greater Saphenous vein, Proximal thigh: reflux: no reflux. Greater Saphenous vein, Distal thigh: reflux: no reflux. Greater Saphenous vein, Proximal below knee: reflux: no reflux. No significant Perforators identified. Left Sided Venous Evaluation Deep venous system evaluatiion shows patent veins with no obstruction or significant reflux identified. Sapheno Femoral junction: no reflux. Femoral vein reflux: no reflux. Greater Saphenous vein, Proximal thigh: reflux: no reflux. Greater Saphenous vein, Distal thigh: reflux: no reflux. Greater Saphenous vein, Proximal below knee: reflux: no reflux. No significant Perforators identified. Interpretation Summary No duplex evidence of DVT or obstruction in the bilateral lower extremities. No significant deep or superficial reflux identified. : YOVANNY CEDEÑO > Francisco Rogers
== END ==
LOC: SP 08:36
PROVIDERS: ATTEND Nurse Practitioner
DX: L97.322 Non-pressure chronic ulcer of left ankle with fat layer exposed (principal); E11.621 Type 2 diabetes mellitus with foot ulcer; L97.522 Non-pressure chronic ulcer of other part of left foot with fat layer exposed
CPT/HCPCS: 36415; 80053; 83036; 85025; 85652; 86140; 93922; 93925; 93970

== ENCOUNTER 2017-09-16 11:33 | Day surgery (SDC) | payer MEDICARE, MEDICAID ==
[2017-09-16 12:30] LABS: HEMATOCRIT 33.9 % (37.9-51.0); HEMOGLOBIN 11.4 g/dL (13.5-17.0); MEAN CORPUSCULAR HEMOGLOBIN 29.1 pg (27.0-33.4); MEAN CORPUSCULAR HGB CONC 33.7 g/dL (32.0-36.0); MEAN CORPUSCULAR VOLUME 86 fl (80-97); PLATELET COUNT 358 10^3/uL (150-450); RED BLOOD COUNT 3.93 10^6/uL (4.35-5.55); RED CELL DISTRIBUTION WIDTH 17.1 % (11.5-14.0); WHITE BLOOD COUNT 6.3 10^3/uL (4.0-10.5)
[2017-09-16 12:51] LABS: ANION GAP 6 (5-19); BLOOD UREA NITROGEN 11 mg/dL (7-20); CALCIUM 9.5 mg/dL (8.4-10.2); CARBON DIOXIDE 30 mmol/L (22-30); CHLORIDE 106 mmol/L (98-107); GLUCOSE 81 mg/dL (75-110); POTASSIUM 5.1 mmol/L (3.6-5.0); SODIUM 142.3 mmol/L (137-145)
[2017-09-16] MEDS ORDERED: LIDOCAINE 0.5% INJ-PF (5 MG/ML) 50 ML SDV ONE (13:41)
[2017-09-16] MEDS ORDERED: BUPIVACAINE HCL 0.25 % INJ/PF (2.5 MG/1 ML) 30 ML VIAL ONE (13:41)
[2017-09-16] MEDS ORDERED: BACITRACIN INJ 50,000 UNIT VIAL ONE (13:41)
[2017-09-16] MEDS ORDERED: METOPROLOL TARTRATE 25 MG TABLET PO ONE (13:50)
[2017-09-16] MEDS ORDERED: FENTANYL CITRATE INJ/PF 100 MCG/2 ML AMPUL ONE (14:13)
[2017-09-16] MEDS ORDERED: PROPOFOL INJ 200 MG/20 ML VIAL IV ONE (14:13)
[2017-09-16] MEDS ORDERED: KETAMINE HCL INJ 500 MG/10 ML VIAL ONE (14:13)
[2017-09-16] MEDS ORDERED: MIDAZOLAM 2 MG/2 ML INJ ONE (14:13)
[2017-09-16] MEDS ORDERED: ACETAMINOPHEN 1,000 MG/100 ML RTUPB IV ONE (14:13)
[2017-09-16] MEDS ORDERED: COLLAGENASE CLOSTRIDIUM HIST. OINT 30 GM ONE (14:14)
[2017-09-16] MEDS ORDERED: SILVER SULFADIAZINE 1% CREAM 25 GM ONE (14:14)
--- NOTE | 2017-09-16 15:11 | Discharge Summary ---
Discharge Summary (SDC) - Discharge Final Diagnosis: #1 chronic leg left leg ulcer 2. Diabetes mellitus type 2. 3. Schizophrenia. 4 tobacco use disorder. 5. Hypertension Date of Surgery: 09/16/17 Discharge Date: 09/16/17 Condition: Fair Treatment or Instructions: Discharge home [after recovery per ASU criteria]. Diet,as tolerated, when fully awake advance as tolerated. Activities within moderation encouraged. Follow up in wound clinic by appointment later this week. Call for appointment. Leave wounds [covered], [keep clean and dry, until office visit in 1 week]. Hold of on school/work [until evaluation in office]. Meds per med rec. May shower [in 48 hrs], [try to keep operated area as dry as possible]. Referrals: LISA QUAN MD [Primary Care Provider] - Discharge Diet: Other (Comments) - ADA. Respiratory Treatments at Home: Deep Breathing/Coughing Discharge Activity: Activity As Tolerated Report the Following to Your Physician Immediately: Unusual Bleeding
--- NOTE | 2017-09-16 15:15 | Operative Report ---
Operative Report DATE OF SURGERY: 09/16/17 PREOPERATIVE DIAGNOSIS: #1 chronic leg left leg ulcer. 2. Diabetes mellitus type 2. 3. Schizophrenia. 4 tobacco use disorder. 5. Hypertension POSTOPERATIVE DIAGNOSIS: #1 chronic leg left leg ulcer. 2. Diabetes mellitus type 2. 3. Schizophrenia. 4 tobacco use disorder. 5. Hypertension OPERATION: Debridement of left lateral malleolus wound. Sharp, surgical, excisional. Including skin and subcutaneous tissue. SURGEON: INES RAMOS TARIFF COUNSEL: None. ANESTHESIA: LMAC TISSUE REMOVED OR ALTERED: Necrotic tissues of the left lateral malleolus wound. Sent for culture. COMPLICATIONS: None. ESTIMATED BLOOD LOSS: 5 mL. INTRAOPERATIVE FINDINGS: Of an opening about 5 mm across. With tunneling mostly anteriorly and superiorly so that the wound was about 2.5 cm across. The base was thick granulation tissue. This was excised and submitted for pathology as well as much of the overhanging skin and subcutaneous tissue. The resulting wound is approximately 2 cm in diameter. PROCEDURE: PROCEDURE: The [left foot ]was prepared with [Betadine] and draped out with sterile linen. After the"universal time-out", in which it was confirmed that the patient [did receive antibiotic], the procedure commenced. The patient was appropriately anesthetized. The wound was probed. The wound was debrided of non viable tissue using scalpel and cautery with removal of loose debris, as well. The wound was irrigated with [Peroxide] . The resulting tissues were sent for culture.The wound was now irrigated with saline and [Surgicel] placed within it, dressed with [Kerlix] and the procedure concluded.
[2017-09-16] MEDS ORDERED: OXYCODONE-ACETAMINOPHEN 5-325 MG TABLET ONE (16:01)
[2017-09-16] MEDS ORDERED: OXYCODONE-ACETAMINOPHEN 5-325 MG TABLET PO PRN (16:03)
[2017-09-16 16:55] VITALS: BP 138/82
[2017-09-16] MEDS ORDERED: ONDANSETRON HCL INJ/PF 4 MG/2 ML SDV ONE (19:44)
[2017-09-16] MEDS ORDERED: LIDOCAINE 2% INJ-PF (20 MG/ML) 2 ML AMPUL ONE (19:44)
--- NOTE | 2017-09-16 22:12 | EKG REPORT ---
SEVERITY:- NORMAL ECG - SINUS RHYTHM : Confirmed by: Leonarda gEan MD 16-Sep-2017 22:10:33
== END 2017-09-16 17:20 ==
LOC: OROUT 11:33
PROVIDERS: ATTEND Surgery
DX: L97.329 Non-pressure chronic ulcer of left ankle with unspecified severity (principal); E11.9 Type 2 diabetes mellitus without complications; F17.210 Nicotine dependence, cigarettes, uncomplicated; I10 Essential (primary) hypertension; F20.9 Schizophrenia, unspecified; E66.9 Obesity, unspecified; Z68.32 Body mass index [BMI] 32.0-32.9, adult; Z88.0 Allergy status to penicillin
CPT/HCPCS: 36415; 87070; 87205; 85027; 87075; 87077; 80048; 93005; 93010; 11042; J2250; J3490 ×3; J3010; A9270 ×2; J2405; J2704; J0131; 400

== ENCOUNTER 2017-11-08 14:12 | Emergency (ER) | payer MEDICARE, MEDICAID ==
--- NOTE | 2017-11-08 15:45 | ER Document Report ---
ED Medical Screen (RME) - General Chief Complaint: Headache Stated Complaint: HEADACHE Time Seen by Provider: 11/08/17 15:43 Mode of Arrival: Ambulatory Information source: Patient Notes: This is a 62-year-old man who is a resident of the [facility], history of schizophrenia, bipolar affective disorder, diabetes who presents to the emergency room with a headache for the past 6 days. Patient does state he has had migraines in the past but it has been a few years. This is not the worst headache of his life but it has been lasting 6 days. He denies fever. He denies photophobia or neck stiffness. He smokes about 11 cigarettes a day but he smoked for his whole life and used to smoke a pack a day. He denies any neck pain. He denies any significant weight loss. He denies any chest pain or shortness of breath or persistent cough. TRAVEL OUTSIDE OF THE [place] IN LAST 30 DAYS: No - HPI Onset: Last week Onset/Duration: Gradual Quality of pain: Dull Severity: Moderate Pain Level: 2 Associated Symptoms: denies: Chest pain, Earache, Fever, Leg swelling, Shortness of breath Exacerbated by: Denies Relieved by: Denies Similar symptoms previously: Yes Recently seen / treated by doctor: No - Related Data Smoking: Cigarettes Frequency of alcohol use: None Drug Abuse: None Allergies/Adverse Reactions: Penicillins Allergy (Verified 11/08/17 14:14) Past Medical History - General Information source: Patient - Social History Cigarette use (# per day): Yes - 11 cigarettes a day Chew tobacco use (# tins/day): No Frequency of alcohol use: None Drug Abuse: None Lives with: Other - [facility] assisted living Family history: None - Past Medical History Cardiac Medical History: Reports: Hx Hypercholesterolemia, Hx Hypertension Denies: Hx Coronary Artery Disease, Hx Heart Attack Pulmonary Medical History: Denies: Hx Asthma, Hx Bronchitis, Hx COPD Comment Only: Hx Pneumonia - "Neurocognitive Disorder" Neurological Medical History: Denies: Hx Cerebrovascular Accident, Hx Seizures Endocrine Medical History: Reports: Hx Diabetes Mellitus Type 2 Renal/ Medical History: Denies: Hx Peritoneal Dialysis Musculoskeltal Medical History: Denies Hx Arthritis Psychiatric Medical History: Reports: Hx Bipolar Disorder, Hx Depression, Hx Schizophrenia Past Surgical History: Reports: Hx Orthopedic Surgery - Left Knee - Immunizations Immunizations up to date: Yes Hx Diphtheria, Pertussis, Tetanus Vaccination: No History of Influenza Vaccine for 01/2017 - 06/2017 Season: Yes Influenza Administration Date for 01/2017 - 06/2017 Season: 01/12/17 Review of Systems - Review of Systems Constitutional: denies: Chills, Fever EENT: denies: Eye discharge, Nose congestion, Sinus discharge, Vertigo Cardiovascular: denies: Chest pain, Palpitations, Heart racing Respiratory: denies: Hemoptysis, Short of breath, Wheezing Gastrointestinal: denies: Nausea, Vomiting Genitourinary: denies: Dysuria, Discharge Male Genitourinary: No symptoms reported Musculoskeletal: No symptoms reported, Other - Lower extremity swelling (which patient states is actually improved).. denies: Back pain Skin: No symptoms reported Hematologic/Lymphatic: No symptoms reported Neurological/Psychological: See HPI, Headaches. denies: Weakness, Paralysis, Seizure, Lost consciousness, Speech impairment, Numbness Physical Exam - Vital signs Vitals: Temp Pulse Resp BP Pulse Ox 97.8 F 61 20 104/55 L 98 11/08/17 14:45 11/08/17 14:45 11/08/17 14:45 11/08/17 14:45 11/08/17 14:45 Notes: Physical exam: GENERAL: 62-year-old man, alert and oriented 3, no acute distress HEAD: Atraumatic, normocephalic. EYES: Pupils equal round and reactive to light, extraocular movements intact, sclera anicteric, conjunctiva are normal. ENT: TMs normal, nares patent, oropharynx clear without exudates. Moist mucous membranes. NECK: Normal range of motion, supple without obvious mass or JVD. LUNGS: Breath sounds clear to auscultation bilaterally and equal. No wheezes rales or rhonchi. HEART: Regular rate and rhythm without murmurs, rubs or gallops. ABDOMEN: Soft, normoactive bowel sounds. No tenderness to palpation. No guarding, no rebound. No masses appreciated. EXTREMITIES: Normal range of motion, no pitting or edema. No clubbing or cyanosis. NEUROLOGICAL: Cranial nerves II through XII grossly intact. Visual duckworth intact. Normal speech, motor 5/5, sensory grossly intact, cerebellar (finger to nose) good, reflexes symmetrical, Romberg negative. There is no photophobia , neck stiffness. PSYCH: Normal mood, normal affect. SKIN: Warm, Dry, normal turgor, no rashes or lesions noted. Course - Re-evaluation Re-evalutation: 11/08/17 17:18 I discussed the results of the CT with the patient. He was given Toradol for pain. He is feeling much better and is smiling on discharge. - Vital Signs Vital signs: Temp Pulse Resp BP Pulse Ox 97.8 F 61 20 104/55 L 98 11/08/17 14:45 11/08/17 14:45 11/08/17 14:45 11/08/17 14:45 11/08/17 14:45 - Diagnostic Test Radiology reviewed: Image reviewed, Reports reviewed - CT of the head shows no acute bleed or mass Doctor's Discharge - Discharge Clinical Impression: Migraine headache Condition: Stable Disposition: HOME, SELF-CARE Additional Instructions: As we discussed, the CT of the head looked good today. I would like you to take ibuprofen every 4-6 hours for the pain for the next 2- 3 days. I recommend having your primary care doctor refer you to a neurologist for follow-up of migraines. Return to the emergency room for worsening headache, fever (temperature 100.5), or any concerns getting worse. Prescriptions: Ibuprofen 400 mg PO Q6HP PRN #14 tablet PRN Reason: Referrals: LISA QUAN MD [Primary Care Provider] - Follow up as needed
--- NOTE | 2017-11-08 16:27 | RADIOLOGY REPORT (SQ) ---
EXAM DESCRIPTION: CT HEAD WITHOUT COMPLETED DATE/TIME: 11/08/2017 4:02 pm REASON FOR STUDY: severe headache COMPARISON: None. TECHNIQUE: Axial images acquired through the brain without intravenous contrast. Images reviewed wi th bone, brain and subdural windows. Additional sagittal and coronal reconstructions were generated. Images stored on PACS. All CT scanners at this facility use dose modulation, iterative reconstruction, and/or weight based d osing when appropriate to reduce radiation dose to as low as reasonably achievable (ALARA). [facility]: Dose Right [facility]: CareDose [facility]: Dose Right [facility]: Teradose 4D [facility]: Sociocast RADIATION DOSE: CT Rad equipment meets quality standard of care and radiation dose reduction techniq ues were employed. CTDIvol: 53.2 mGy. DLP: 1017 mGy-cm. mGy. LIMITATIONS: None. FINDINGS: VENTRICLES: Normal size and contour. CEREBRUM: No masses. No hemorrhage. No midline shift. No evidence for acute infarction. Normal gra y/white matter differentiation. No areas of low density in the white matter. CEREBELLUM: No masses. No hemorrhage. No alteration of density. No evidence for acute infarction. EXTRAAXIAL SPACES: No fluid collections. No masses. ORBITS AND GLOBE: No intra- or extraconal masses. Normal contour of globe without masses. CALVARIUM: No fracture. PARANASAL SINUSES: No fluid or mucosal thickening. SOFT TISSUES: No mass or hematoma. OTHER: No other significant finding. IMPRESSION: NORMAL BRAIN CT WITHOUT CONTRAST. EVIDENCE OF ACUTE STROKE: NO. COMMENT: Quality ID # [id number]: Final reports with documentation of one or more dose reduction techniques (e.g., Automated exposure control, adjustment of the mA and/or kV according to patient size, use of iterative reconstruction technique) TECHNICAL DOCUMENTATION: JOB ID: [id number] [employer]- All Rights Reserved Reading location - IP/workstation name: [email or web address]
[2017-11-08] MEDS ORDERED: KETOROLAC TROMETHAMINE 60 MG/2 ML SDV IM ONE (16:34)
[2017-11-08 16:41] LABS: APPEARANCE,URINE CLEAR; BILIRUBIN,URINE NEGATIVE (NEGATIVE); COLOR,URINE YELLOW; GLUCOSE, URINE NEGATIVE (NEGATIVE); KETONES,URINE NEGATIVE (NEGATIVE); LEUKOCYTE ESTERASE,URINE NEGATIVE (NEGATIVE); NITRITE,URINE NEGATIVE (NEGATIVE); PROTEIN,URINE NEGATIVE (NEGATIVE); URINE SPECIFIC GRAVITY 1.012; UROBILINOGEN,URINE NEGATIVE mg/dL (<2.0)
[2017-11-08 17:30] VITALS: BP 103/57
== END 2017-11-08 17:30 | disposition home or self-care (01) ==
LOC: ER 14:12
DX: G43.909 Migraine, unspecified, not intractable, without status migrainosus (principal); E11.9 Type 2 diabetes mellitus without complications; I10 Essential (primary) hypertension; F17.210 Nicotine dependence, cigarettes, uncomplicated; Z88.0 Allergy status to penicillin
CPT/HCPCS: 99284; 96372; 81001; 70450; J1885

== ENCOUNTER → 2019-01-11 | Outpatient (CLI) | payer MEDICARE, MEDICAID ==
--- NOTE | 2019-01-11 13:24 | RADIOLOGY REPORT (SQ) ---
EXAM DESCRIPTION: C SP 3 VWS OR LESS COMPLETED DATE/TIME: 01/11/2019 11:29 am REASON FOR STUDY: CERVICALGIA M54.2 CERVICALGIA COMPARISON: None. NUMBER OF VIEWS: Three views. TECHNIQUE: AP and lateral radiographic images acquired of the cervical spine. LIMITATIONS: None. FINDINGS: MINERALIZATION: Normal. ALIGNMENT: Anatomic. VERTEBRAE: Vertebral bodies of normal height. DISCS: No significant disc space narrowing. No large osteophytes. HARDWARE: None in the spine. SOFT TISSUES: No masses or calcifications. Lung apices clear. OTHER: No other significant finding. IMPRESSION: NO SIGNIFICANT RADIOGRAPHIC FINDING IN THE CERVICAL SPINE. TECHNICAL DOCUMENTATION: JOB ID: [id number] [employer]- All Rights Reserved Reading location - IP/workstation name: [email or web address]
== END ==
LOC: OD 11:17
PROVIDERS: ATTEND Internal Medicine
DX: M54.2 Cervicalgia (principal)
CPT/HCPCS: 72040

== ENCOUNTER → 2019-11-10 | Outpatient (CLI) | payer MEDICARE ==
--- NOTE | 2019-11-10 12:12 | RADIOLOGY REPORT (SQ) ---
EXAM DESCRIPTION: VENOUS UNILATERAL LOWER IMAGES COMPLETED DATE/TIME: 11/10/2019 11:19 am REASON FOR STUDY: LLE EDEMA R22.42 LOCALIZED SWELLING, MASS AND LUMP, LEFT LOWER LIMB COMPARISON: 04/16/2017. TECHNIQUE: Dynamic and static pelaez scale and color images acquired of the left leg venous system. Se lected spectral images acquired with additional compression and augmentation maneuvers. The contralat eral common femoral vein and saphenofemoral junction were also imaged. Images stored on PACS. LIMITATIONS: None. FINDINGS: COMMON FEMORAL: Normal phasicity, compression and augmentation. No visualized echogenic ma terial on pelaez scale. No defects on color images. FEMORAL: Normal compression and augmentation. No visualized echogenic material on pelaez scale. No defe cts on color images. POPLITEAL: Normal compression, augmentation. No visualized echogenic material on pelaez scale. No defec ts on color images. CALF VESSELS: Normal compression, augmentation. No visualized echogenic material on pelaez scale. No de fects on color images. GSV and SSV: Normal compression, augmentation. No visualized echogenic material on pelaez scale. No def ects on color images. ANY DEEP VENOUS INSUFFICIENCY: Not evaluated. ANY EVIDENCE OF POPLITEAL CYST: No. OTHER: Subcutaneous edema. CONTRALATERAL COMMON FEMORAL VEIN AND SAPHENOFEMORAL JUNCTION: Normal phasicity, compression and augmentation. No visualized echogenic material on pelaez scale. No de fects on color images. IMPRESSION: NO EVIDENCE OF DVT OR SVT IN THE LEFT LEG. TECHNICAL DOCUMENTATION: JOB ID: [id number] 2010 [employer]- All Rights Reserved Reading location - IP/workstation name: [email or web address]
== END ==
LOC: SP 09:58
PROVIDERS: ATTEND Internal Medicine
DX: R22.42 Localized swelling, mass and lump, left lower limb (principal)
CPT/HCPCS: 93971

== ENCOUNTER → 2020-03-13 | Outpatient (CLI) | payer MEDICARE, MEDICAID ==
--- NOTE | 2020-03-13 12:24 | RADIOLOGY REPORT (SQ) ---
EXAM DESCRIPTION: NM 3 PHASE BONE SCAN IMAGES COMPLETED DATE/TIME: 03/13/2020 11:20 am REASON FOR STUDY: M84.371A STRESS FRACTURE, RIGHT ANKLE, INITIAL ENCOUNTER FOR FRACTURE M84.371A ST RESS FRACTURE, RIGHT ANKLE, INITIAL ENCOUNTER FOR COMPARISON: Outside images dated 03/01/2020 RADIONUCLIDE AND DOSE: 20 millicuries Tc99m MDP. The route of agent administration: Intravenous. ADDITIONAL DRUGS AND DOSES: None. TECHNIQUE: Following injection of the radiopharmaceutical, serial blood flow images acquired. Equil ibrium blood pool images then acquired. Routine delayed images at 3 hours acquired of the areas of c linical concern with additional focused images as needed. AREA OF INTEREST: Right ankle LIMITATIONS: None. FINDINGS: VASCULAR FLOW IMAGES: There is increased blood flow to the right ankle and foot. BLOOD POOL IMAGES: There is increased blood pool activity in the right ankle. BONES: There is increased delayed uptake in the right ankle in the region of the distal tibia, the ca lcaneus, the navicular, and the talus. KIDNEYS: Symmetric excretion without obstruction. OTHER: No other significant finding. IMPRESSION: There is hyperemia with increased blood pool activity in increased delayed uptake in the right ankle as described. Cannot exclude stress fractures. Cannot exclude osteomyelitis. Consider MRI for further evaluation. COMMENT: Quality measure 147: Current bone scan is compared with any available plain radiographs, p rior bone scans, and CT/MRI. TECHNICAL DOCUMENTATION: JOB ID: [id number] 2010 [employer]- All Rights Reserved Reading location - IP/workstation name: [email or web address]
== END ==
LOC: RAD 08:18
PROVIDERS: ATTEND Family Medicine
DX: M84.371A Stress fracture, right ankle, initial encounter for fracture (principal)
CPT/HCPCS: 78315; A9503; Q9969

== ENCOUNTER → 2020-04-03 | Outpatient (CLI) | payer MEDICARE, MEDICAID ==
--- NOTE | 2020-04-03 15:47 | RADIOLOGY REPORT (SQ) ---
EXAM DESCRIPTION: MRI RT LOWER EXTREMITY WITHOUT IMAGES COMPLETED DATE/TIME: 04/03/2020 12:05 pm COMPARISON: Right ankle radiograph 03/01/2018. TECHNIQUE: Right ankle images acquired and stored on PACS. Multiplanar images include fat sensitive sequences as T1, fluid sensitive sequences as FST2/STIR, cartilage sensitive sequences as FSPD, and g radient echo sequences. LIMITATIONS: None. FINDINGS: BONE MARROW: There is abnormal bone marrow signal in the distal tibia, distal talus, navic ular, and calcaneus. No acute fracture line. EFFUSIONS: Small subtalar fusion. No tibiotalar effusion. No loose bodies. OSSEOUS ARTICULATIONS: There is subchondral cystic change at the talocalcaneal and talonavicular join ts. Subchondral cystic change at the anterior calcaneus. TALAR DOME AND TIBIAL PLAFOND: Osteochondral defect at the tibial articular surface with associated b one marrow edema. Talar dome has a normal appearance with no osteochondral lesion. Distal fibula is intact. . ACHILLES TENDON: Intact without partial or full-thickness tear. No adjacent bursal fluid or edema. TIBIALIS ANTERIOR TENDON: Intact without edema at the 1st MT attachment. TIBIALIS POSTERIOR TENDON: Normal morphology and no edema at the navicular attachment. No tendon chand th fluid. FLEXOR HALLUCIS LONGUS AND FLEXOR DIGITORUM TENDONS: Normal morphology and no tendon sheath fluid. No edema of the os trigonum. PERONEUS LONGUS AND BREVIS TENDON: Normal morphology and no tendon sheath fluid. No subluxation. ATFL, CFL, PTFL: Intact. No thickening or signal alteration. No leyla-ligamentous fluid. DELTOID LIGAMENT: Visualized components intact. TARSAL TUNNEL: No masses. No muscle atrophy. SINUS TARSI: Abnormal signal with subchondral cystic change and edema as well is increased soft tissu e attenuation. . PLANTAR FASCIA: No signal alteration or tear. ADJACENT SOFT TISSUES: No masses. OTHER: No other significant finding. IMPRESSION: Osteochondral lesion at the articular surface distal tibia with associated nondisplaced bony defect and bone marrow edema. Bone marrow edema at the distal talus, distal calcaneus, and osiris cular bone with associated soft tissue findings suggestive of tarsal tunnel syndrome. Ligaments and tendons appear intact. TECHNICAL DOCUMENTATION: JOB ID: [id number] [employer]- All Rights Reserved REASON FOR STUDY: (M84.371A)STRESS FRACTURE, RIGHT ANKLE, INITIAL ENCOUNTER FOR FRACTURE M84.371A S TRESS FRACTURE, RIGHT ANKLE, INITIAL ENCOUNTER FOR (M84.371A)STRESS FRACTURE, RIGHT ANKLE, INITIAL ENCOUNTER FOR FRACTURE M84.371A STRESS FRACTURE, RIG HT ANKLE, INITIAL ENCOUNTER FOR. Pain, swelling, decreased range of motion, muscle pain. Diffuse an kle pain for 2 months. No recent trauma. Diabetes. History of prior foot surgery. Reading location - IP/workstation name: [email or web address]
== END ==
LOC: RAD 12:30
PROVIDERS: ATTEND Family Medicine
DX: M84.371A Stress fracture, right ankle, initial encounter for fracture (principal)